=== PATIENT | male | born 1960 | race Caucasian/White ===

== ENCOUNTER 2016-06-22 14:56 | Inpatient (IN) ==
[2016-06-22] MEDS ORDERED: HYDROmorphone 2 MG/1 ML VIAL IV STA (15:56)
[2016-06-22] MEDS ORDERED: NITROGLYCERIN 2% OINT 1 INCH/GM PACK TOP STA (15:56)
[2016-06-22] MEDS ORDERED: ASPIRIN 325 MG TABLET PO STA (15:56)
[2016-06-22] MEDS ORDERED: ONDANSETRON 4 MG/2 ML VIAL IV STA (15:56)
[2016-06-22] MEDS ORDERED: KETOROLAC 30 MG/1 ML VIAL IV STA (15:56)
[2016-06-22] MEDS ORDERED: ALUM/MAG/SIMETH/LIDO VISC 1:1 30 ML BOTTLE PO STA (15:56)
--- NOTE | 2016-06-22 16:03 | EKG Report ---
Stationary ECG Study [facility] ER Test Date: 06/22/2016 3:04:33 PM Pat Name: MATTEO LUCIO Department: Room: Gender: M Torque Tester: Brenda Mckay : 1960 Requested by: Tyson Vallejo Order Number: [id number] Reading MD: GALDINO SOLITARIO Intervals [place] Rate: 93 P: 63 MT: 169 QRS: 8 QRSD: 97 T: 85 QT: 349 QTc: 399 Interpretive Statements SINUS RHYTHM at 93 BPM ANTEROSEPTAL INFARCT, PROBABLY RECENT Electronically Signed On 06-25-16 16:58:18 CDT by GALDINO SOLITARIO [email or web address]
[2016-06-22] MEDS ORDERED: ONDANSETRON 4 MG/2 ML VIAL ONE (16:07)
[2016-06-22] MEDS ORDERED: KETOROLAC 30 MG/1 ML VIAL ONE (16:07)
[2016-06-22] MEDS ORDERED: ALUM/MAG/SIMETH/LIDO VISC 1:1 30 ML BOTTLE PO ONE (16:07)
[2016-06-22] MEDS ORDERED: NITROGLYCERIN 2% OINT 1 INCH/GM PACK TOP ONE (16:07)
[2016-06-22] MEDS ORDERED: ASPIRIN 325 MG TABLET ONE (16:07)
[2016-06-22] MEDS ORDERED: HYDROmorphone 2 MG/1 ML VIAL ONE (16:07)
--- NOTE | 2016-06-22 16:15 | XRay Report ---
Portable chest Date: 06/22/2016 Clinical history: Chest pain Comparison: None Technique: Portable AP sitting chest Findings: The heart is minimally enlarged. Minimal diffuse parenchymal findings in the lower lung zones. Unremarkable mediastinum with degenerative changes. Impression: Mild cardiomegaly. Minimal atelectasis/edema/infiltration at lung bases. PROCEDURE INTERPRETED AT [facility] DEPARTMENT OF RADIOLOGY Final Report Signed by: Dr. Theresa Santamaria
[2016-06-22 16:24] LABS: Basophils # 0.1 10*3/uL (0.0-0.2); Basophils % 0.7 % (0.0-0.8); Eosinophils # 0.1 10*3/uL (0.0-0.87); Eosinophils % 1.4 % (0.00-10.9); Hematocrit 43.2 VOL% (42.0-52.0); Hemoglobin 15.2 GM/DL (14.0-18.0); Immature Granulocytes % 0.6 %; Immature Granulocytes Absolute 0.05 #; Lymphocytes % 23.3 % (21.2-54.2); Mean Corpuscular HGB Conc 35.2 GM/DL (32-36); Mean Corpuscular Hemoglobin 31 PG (27-34); Mean Corpuscular Volume 88.9 FL (87-102); Mean Platelet Volume 10.8 FL (9.6-12.0); Monocytes # 0.5 10*3/uL (0.11-0.8); Monocytes % 6.2 % (1.7-12.7); Neutrophils # 5.9 10*3/uL (1.4-7.4); Neutrophils % 67.8 % (38.7-73.9); Platelet Count 278 T/CUMM (130-400); Red Blood Count 4.86 MC/CUMM (3.8-5.5); Red Cell Distribution Width 11.8 % (9.3-17.3); White Blood Count 8.7 T/CUMM (4-12)
[2016-06-22 16:32] LABS: D-Dimer <= 0.5 MG/L FEU; PT Patient Result 10.7 SECS
[2016-06-22 16:38] LABS: Apearance,Urine CLEAR (Clear); Bilirubin,Urine Negative (Negative); Blood, Urine Negative (Negative); Glucose,Urine (UA) >=500 mg/dL (Negative); Ketones,Urine 5 mg/dL (Negative); Mucus,Urine Occasional /LPF (Occasional); Nitrite,Urine Negative (Negative); Protein,Urine Negative; RBC,Urine 1 /HPF (0-4); Urine Color Yellow (Yellow); Urine Specific Gravity 1.021 (1.001-1.035); Urine Urobilinogen < 2.0 EU/DL (0.2-1.0); WBC,Urine <1 /HPF (0-6)
[2016-06-22 16:38] LABS: Albumin 3.8 G/DL (3.4-5.0); Bilirubin,Total 0.4 MG/DL (0.2-1.0); Calcium 8.8 MG/DL (8.5-10.1); Magnesium 1.9 MG/DL (1.8-2.4); Osmolality,Calculated 281.1 MOS/KG (273-304); Potassium 4.2 MMOL/L (3.5-5.1); Total Protein 6.6 G/DL (6.4-8.3)
--- NOTE | 2016-06-22 16:40 | Emergency Department Note ---
Nani Strong Hilary, am scribing for, and in the presence of, Tyson Sandhu MD 15:52. Phoebe Strong Charles R, MD, personally performed the services described in this documentation, ascribed by Deonna Cardoza in my presence, and it is both accurate and complete 640 . Arrival - Arrival Chief Complaint: Chest Pain Stated Complaint: chest pain ED Nursing Triage Note: Pt c/o Chest/epigastric pain that comes and goes since last , with SOB and radiates into his right arm. Mode of Arrival: Wheelchair Limitations: No Limitations Source: Patient, RN Notes Reviewed Time Seen by Provider: 06/22/16 15:09 - History of Present Illness HPI Narrative: Pt is a 56 y/o male presenting to the ED with c/o chest pain that radiates up his neck and to his right arm which has been off and on for 6 days. Pt confirms diaphoresis and intermittent episodes of chest pain but denies nausea and dizziness. Pt states the pain is now resolved. No other complaints or problems stated in the ED. Onset (ago): day(s) Consistency: now resolved Quality: burning Allergies/Adverse Reactions: Allergies Allergy/AdvReac Type Severity Reaction Status Date / Time codeine Allergy ITCHING Verified 01/11/15 09:24 Home Medications: Home Medications Medication Instructions Recorded Confirmed Type No Known Home Medications [No 06/22/16 06/22/16 History Known Home Medications] Review of System - Review of System 12 point system: reviewed and no additional remarkable complaints except as stated - Review of System Constitutional: Present: diaphoresis. Absent: fever Eyes: Absent: other (Dizziness) Cardiovascular: Present: chest pain, dyspnea on exertion. Absent: syncope Gastrointestinal: Absent: abdominal pain, nausea Medical,Surgical,& Family Hx - Medical History Endocrine: History of: Diabetes Mellitus (NIDDM) Genitourinary: History of: Prostate Problems (CA) - Surgical History Reproductive Surgeries: Surgical HX of;: Prostate Surgery Orthopedic Surgeries: Surgical HX of;: Orthopedic Surgery (lane knee surg) - Social History Smoking Status: Never smoker Exam Vital Signs: Vital Signs Temperature 97.6 F 06/22/16 15:13 Pulse Rate 90 06/22/16 15:13 Respiratory Rate 18 06/22/16 15:13 Blood Pressure 138/77 06/22/16 15:13 O2 Sat by Pulse Oximetry 98 06/22/16 15:03 - General General appearance: alert, in no apparent distress - Head Head exam: Present: atraumatic, normocephalic - Eye Eye exam: Present: normal appearance, PERRL, EOMI - ENT ENT exam: Present: mucous membranes moist, TM's normal bilaterally. Absent: mucous membranes dry - Neck Neck exam: Present: full ROM, trachea midline. Absent: tenderness - Chest Chest inspection: Present: symmetric chest wall rise. Absent: tenderness - Respiratory Respiratory exam: Present: normal lung sounds bilaterally. Absent: respiratory distress - Cardiovascular Cardiovascular exam: Present: regular rate, normal rhythm, normal heart sounds. Absent: murmur, rubs, gallop - Abdominal Exam Abdominal exam: Present: soft. Absent: distention, tenderness - Extremities Exam Extremities exam: Present: full ROM. Absent: tenderness - Back Exam Back exam: Present: full ROM. Absent: tenderness - Neurological Exam Neurological exam: Present: alert, oriented X3, CN II-XII intact. Absent: motor sensory deficit - Psychiatric Psychiatric exam: Present: normal affect, normal mood - Skin Skin exam: Present: warm, dry, intact, normal color. Absent: rash Course - Reevaluation(s) Reevaluation #1: Patient has had no chest pain since he has been emergency room pain started 2 weeks ago with his increased slightly last couple days. Patient has a elevated troponin and clinically unstable angina, EKG shows possible slight ST elevation in 1-lead but no cervical changes. This information really laid Dr. Mansfield he suggested admit patient medically worked him up plan on doing a heart cath Time: 16:48 - Consultations Consultation #1: Dr. Mansfield will admit patient Time: 16:45 Results - Labs CBC & BMP: 06/22/16 15:25 06/22/16 15:25 - Diagnostic Findings Procedure: Chest x-ray: report reviewed by me (Mild cardiomegaly. Minimal atelectasis/edema/infiltration at lung bases. ) Critical Care Time Critical Care Time: Yes Total Critical Care Time: 60 Disposition Clinical Impression: Chest pain, Unstable angina pectoris, Elevated troponin Case discussed with: patient Disposition: Still a Patient Condition: Stable Time of Disposition: 16:49
[2016-06-22] MEDS ORDERED: ENOXAPARIN 100 MG/ML SYRINGE SUBCUT STA (16:58)
[2016-06-22] MEDS ORDERED: ENOXAPARIN 120 MG/0.8 ML SYRINGE SUBCUT ONE (17:19)
--- NOTE | 2016-06-22 17:44 | Cardiology History & Physical ---
<Bronwyn Vale E - Last Filed: 06/22/16 17:35> Assessment and Plan - Time spent with patient Time spent with patient: Greater than 30 minutes (1) NSTEMI (non-ST elevated myocardial infarction) Status: Acute Assessment and plan: SEE PLAN OF CARE LISTED BELOW Current Visit: Yes (2) Diabetes Status: Chronic Assessment and plan: SEE PLAN OF CARE LISTED BELOW Current Visit: Yes (3) Sleep disorder Status: Chronic Assessment and plan: SEE PLAN OF CARE LISTED BELOW Current Visit: Yes (4) Obesity Status: Chronic Assessment and plan: SEE PLAN OF CARE LISTED BELOW Current Visit: Yes History of Present Illness Chief complaint: Chest pain History of present illness: Patient is being seen in the emergency department at [facility] Mr. Paulson is a 56 year old male without a prior cardiac history. Risk factors include: Suspected hypertension, unknown lipid status, diabetes, obesity, sedentary lifestyle. Patient presented to the emergency department at [facility] after experiencing intermittent chest pain since . Initially, the discomfort began and lasted approximately 15 minutes. He has had this episode occur several times with the worst being on Tuesday when he began to feel the chest discomfort in the center of his chest which radiated up to bilateral jaws. He was mildly short of breath and felt his heart racing. He became diaphoretic and this worried him. He can identify no aggravating factors nor any alleviating factors. In retrospect, patient reports he has noticed some chest discomfort in the past with significant exertion however, the chest discomfort has recently began to occur while at rest. He is unable to rate the discomfort on a scale of 1-10. He is currently chest pain-free. Cardiac biomarkers have been drawn and the first troponin is 1.34. EKG does reveals a possible recent shantal septal infarct. Patient received aspirin 325 mg, Lovenox 110 mg subcu, nitroglycerin paste. We will add low-dose beta blockade and lipid-lowering agent tonight. Patient is agreeable for admission. He will be transferred to our telemetry unit where he will be closely monitored overnight. Dr. Dean we will see this patient and advise plan of care. I will keep him n.p.o. after midnight tonight for possible cardiac catheterization tomorrow. ASSESSMENT/PLAN: 1. NSTEMI -patient is chest pain-free. See plan of care listed above. Echocardiogram has been ordered. 2. DIABETES -sliding scale insulin. Usually takes metformin but has been out of his diabetes medication for 1 month and he has been trying to manage with his diet and exercise 3. SUSPECTED HYPERTENSION -adding low-dose beta blockade 4. UNKNOWN LIPID STATUS -fasting lipid profile in the morning 5. ELEVATED LIPASE -adding amylase and LFTs 6. OBESITY -dietary counseling prior to discharge 7. SLEEP DISORDER -scheduled for outpatient sleep study Home Medications Medication Instructions Recorded Confirmed Type No Known Home Medications [No 06/22/16 06/22/16 History Known Home Medications] Allergies Allergy/AdvReac Type Severity Reaction Status Date / Time codeine Allergy ITCHING Verified 01/11/15 09:24 Review of systems: REVIEW OF SYSTEMS: - Constitutional Constitutional: Present: Fatigue. Absent: syncope, anorexia, night sweats - EENT Eyes: Absent: blurry vision, loss of vision, diplopia Ears: Absent: decreased hearing, ear pain, ear discharge - Cardiovascular Cardiovascular: Present: chest pain with exertion and at rest. Dyspnea on exertion. Denies edema or palpitations. Absent: chest pain with deep breath, claudication, - Respiratory Respiratory: Present: WALL, denies cough. Absent: wheezing, hemoptysis, change in phlegm color - Gastrointestinal Gastrointestinal: Denies constipation. Absent: abdominal pain, hematemesis, hematochezia, melena, change in bowel habits, nausea - Genitourinary Genitourinary: Absent: difficulty urinating, dysuria, urinary hesitancy, flank pain - Musculoskeletal Musculoskeletal: Present: back pain Absent: joint swelling, muscle cramps, muscle weakness - Neurological Neurological: Present: normal gait without frequent falls. Absent: dizziness, hemiparesis - Psychiatric Psychiatric: Absent: anxiety, depression, difficulty concentrating - Endocrine Endocrine: Present: fatigue. Absent: cold intolerance, heat intolerance, polyuria, polyphagia, polydipsia - Hematologic/Lymphatic Hematologic/Lymphatic: Present: easy bruising. Absent: easy bleeding -Integumentary Integumentary: Absent: lesions, rashes, skin breakdown Medical,Surgical,& Family Hx - Medical History Cardio: No history of: CHF, CAD, Hypertension, [place] Endocrine: History of: Diabetes Mellitus (NIDDM) Genitourinary: History of: Prostate Problems (CA) - Surgical History Reproductive Surgeries: Surgical HX of;: Prostate Surgery Orthopedic Surgeries: Surgical HX of;: Orthopedic Surgery (lane knee surg) - Social History Smoking Status: Never smoker Have you smoked in the last 12 months: No Type of Drug Use: None Marital Status: Lives With:: Spouse Functional capacity: independent ambulation Cardiology Physical Exam - Constitutional Vitals: Vital Signs Temp Pulse Resp BP Pulse Ox 97.6 F 90 18 138/77 98 06/22/16 15:13 06/22/16 15:13 06/22/16 15:13 06/22/16 15:13 06/22/16 15:03 Intake and Output 06/22/16 06/22/16 06/22/16 07:59 15:59 23:59 Other: Weight 109.316 kg Patient Weight 06/22/16 23:59 Weight 109.316 kg Exam: General: [Appears well with no apparent distress.] [Pleasant and cooperative. ] [Appears comfortable.] HEENT: [PERRL, normocephalic, atraumatic. Mucous membranes moist. No jaundice noted. Conjunctiva moist and clear, sclerae anicteric] Neck: No obvious jugular vein distention. No thyromegaly or lymphadenopathy noted. No carotid bruit appreciated Cardiac: [Regular rate and rhythm.] [No obvious murmur rub or gallop.] Lungs: [Clear to auscultation without accessory muscle use to assist the respiratory pattern.] Using oxygen intermittently Abdomen: Soft, bowel sounds normoactive. Nontender and nondistended. No abdominal bruit or thrill noted. No masses noted. Musculoskeletal: No fluid collection. Decreased range of motion is noted. Extremities: No clubbing, cyanosis noted. [ No edema noted.] Upper extremity pulses 2+. Lower extremity pulses 2+. Capillary refill less than 3 seconds. Skin: No unusual lesions or rashes. No skin breakdown appreciated. Neuro: Awake, alert and oriented 3. Moves all extremities well without hemiparesis or paralysis. No essential tremor is appreciated. Result/EKG - Labs CBC & BMP: 06/22/16 15:25 06/22/16 15:25 Lab Results: I have reviewed the past 24 hour labs Labs: Laboratory Results - last 24 hr 06/22/16 06/22/16 06/22/16 15:22 15:25 15:25 WBC RBC Hgb Hct MCV MCH MCHC RDW Plt Count MPV Neut % (Auto) Lymph % (Auto) [place] % (Auto) Eos % (Auto) Baso % (Auto) Neut # (Auto) Lymph # (Auto) [place] # (Auto) Eos # (Auto) Baso # (Auto) Immature Gran % Nucleated RBC % Immature Gran # Nucleated RBCs # INR 1.0 PT Patient/Control Mix 10.7 D-Dimer, Quantitative <= 0.5 Sodium 135 L Potassium 4.2 Chloride 102 Carbon Dioxide 25 Anion Gap 12.2 BUN 20 H Creatinine 1.40 H GFR Calculation 76 BUN/Creatinine Ratio 14.00 Glucose 263 H Calculated Osmolality 281.1 Calcium 8.8 Magnesium 1.9 Total Bilirubin 0.40 AST 16 ALT 25 Alkaline Phosphatase 80 Troponin I B-Natriuretic Peptide Total Protein 6.6 Albumin 3.8 Globulin 2.8 Albumin/Globulin Ratio 1.3 Lipase 571.0 H Urine Color Yellow Urine Appearance Clear Urine pH 5.0 Ur Specific [place] 1.021 Urine Protein Negative Urine Glucose (UA) >=500 Urine Ketones 5 Urine Blood Negative Urine Nitrate Negative Urine Bilirubin Negative Urine Urobilinogen < 2.0 H Urine Leukocytes Negative Urine RBC 1 Urine WBC <1 Urine Mucus Occasional Ur Culture Indicated? Not indicated 06/22/16 06/22/16 06/22/16 15:25 15:25 15:25 WBC 8.7 RBC 4.86 Hgb 15.2 Hct 43.2 MCV 88.9 MCH 31 MCHC 35.2 RDW 11.8 Plt Count 278 MPV 10.8 Neut % (Auto) 67.8 Lymph % (Auto) 23.3 [place] % (Auto) 6.2 Eos % (Auto) 1.4 Baso % (Auto) 0.7 Neut # (Auto) 5.9 Lymph # (Auto) 2.0 [place] # (Auto) 0.5 Eos # (Auto) 0.1 Baso # (Auto) 0.1 Immature Gran % 0.6 Nucleated RBC % 0.0 Immature Gran # 0.05 Nucleated RBCs # 0.00 INR PT Patient/Control Mix D-Dimer, Quantitative Sodium Potassium Chloride Carbon Dioxide Anion Gap BUN Creatinine GFR Calculation BUN/Creatinine Ratio Glucose Calculated Osmolality Calcium Magnesium Total Bilirubin AST ALT Alkaline Phosphatase Troponin I 1.340 H B-Natriuretic Peptide 83 Total Protein Albumin Globulin Albumin/Globulin Ratio Lipase Urine Color Urine Appearance Urine pH Ur Specific [place] Urine Protein Urine Glucose (UA) Urine Ketones Urine Blood Urine Nitrate Urine Bilirubin Urine Urobilinogen Urine Leukocytes Urine RBC Urine WBC Urine Mucus Ur Culture Indicated? - Diagnostic Findings Procedure: Chest x-ray: report reviewed by me - EKG EKG results: interpreted by me EKG shows: sinus rhythm (Anteroseptal infarct) <Yordan Dean - Last Filed: 06/22/16 18:27> History of Present Illness History of present illness: Mr. Paulson is a 56 year old male Cardiology Physical Exam - Constitutional Vitals: Vital Signs Temp Pulse Resp BP Pulse Ox 97.6 F 90 18 138/77 98 06/22/16 15:13 06/22/16 15:13 06/22/16 15:13 06/22/16 15:13 06/22/16 15:03 Result/EKG - Labs CBC & BMP: 06/22/16 15:25 06/22/16 15:25
[2016-06-22] MEDS ORDERED: METOPROLOL TARTRATE 25 MG TABLET PO STA (17:51)
[2016-06-22] MEDS ORDERED: MAGNESIUM SULF RIDER 2 GM in PREMIX 1 EACH IV PRN ×3 (17:53→19:49)
[2016-06-22] MEDS ORDERED: POTASSIUM CHLORIDE RIDER 10 MEQ in PREMIX 1 EACH IV PRN ×2 (17:53→18:33)
[2016-06-22] MEDS ORDERED: DEXTROSE 50% 25 GM/50 ML VIAL IV PRN ×2 (17:56→19:49)
[2016-06-22] MEDS ORDERED: GLUCAGON 1 MG VIAL IM PRN ×2 (17:56→19:49)
[2016-06-22] MEDS ORDERED: diphenhydrAMINE CAP 25 MG CAPSULE PO ONE (18:33)
[2016-06-22] MEDS ORDERED: DIAZEPAM 5 MG TABLET PO ONE (18:33)
[2016-06-22] MEDS ORDERED: POTASSIUM CHLORIDE 20 MEQ TABLET PO PRN (19:49)
[2016-06-22] MEDS ORDERED: SODIUM CHLORIDE 0.9% 1,000 ML IV SCH (19:49)
[2016-06-22] MEDS ORDERED: MAGNESIUM SULF RIDER 4 GM in PREMIX 1 EACH IV PRN (19:49)
[2016-06-22] MEDS ORDERED: HYDROmorphone 2 MG/1 ML VIAL IV PRN (19:49)
[2016-06-22] MEDS ORDERED: ONDANSETRON 4 MG/2 ML VIAL IV PRN (19:49)
[2016-06-22] MEDS ORDERED: NITROGLYCERIN 2% OINT 1 INCH/GM PACK TOP SCH (19:49)
[2016-06-22] MEDS ORDERED: ATORVASTATIN 40 MG TABLET PO STA (19:58)
[2016-06-22] MEDS ORDERED: METOPROLOL TARTRATE 25 MG TABLET PO SCH (21:00)
[2016-06-22] MEDS ORDERED: INSULIN REGULAR 100 UNIT/ML SUBCUT SCH (21:00)
[2016-06-22] MEDS: SODIUM CHLORIDE 0.45% 1,000 ML IV SCH (21:00)
[2016-06-22] MEDS: INSULIN REGULAR 100 UNIT/ML SUBCUT SCH (21:25)
--- NOTE | 2016-06-22 22:21 | EKG Report ---
Stationary ECG Study [facility] Test Date: 06/22/2016 10:18:59 PM Pat Name: MATTEO LUCIO Department: Room: 266 Gender: M Intermediate Frame Tender: Osman : 1960 Requested by: Tyson Vallejo Order Number: [id number] Reading MD: BLAKE CHA Intervals [place] Rate: 85 P: 29 TN: 189 QRS: 2 QRSD: 106 T: 80 QT: 340 QTc: 383 Interpretive Statements SINUS RHYTHM ANTEROSEPTAL INFARCT, AGE UNDETERMINED Electronically Signed On 06-28-16 10:42:14 CDT by BLAKE CHA [email or web address]
[2016-06-22] MEDS ORDERED: ASPIRIN 325 MG TABLET PO ONE (22:47)
[2016-06-22] MEDS ORDERED: ACETAMINOPHEN 325 MG TABLET PO ONE (22:48)
[2016-06-22 22:56] LABS: Calcium 7.8 MG/DL (8.5-10.1); Magnesium 1.8 MG/DL (1.8-2.4); Osmolality,Calculated 288.1 MOS/KG (273-304); Potassium 4.1 MMOL/L (3.5-5.1)
[2016-06-23 04:46] LABS: Basophils # 0.1 10*3/uL (0.0-0.2); Basophils % 0.8 % (0.0-0.8); Eosinophils # 0.1 10*3/uL (0.0-0.87); Eosinophils % 1.7 % (0.00-10.9); Hematocrit 39.7 VOL% (42.0-52.0); Hemoglobin 14.2 GM/DL (14.0-18.0); Immature Granulocytes % 0.5 %; Immature Granulocytes Absolute 0.03 #; Lymphocytes # 2.8 10*3/uL (1.4-4.0); Lymphocytes % 41.6 % (21.2-54.2); Mean Corpuscular HGB Conc 35.8 GM/DL (32-36); Mean Corpuscular Hemoglobin 31 PG (27-34); Mean Corpuscular Volume 86.9 FL (87-102); Mean Platelet Volume 10.7 FL (9.6-12.0); Monocytes # 0.5 10*3/uL (0.11-0.8); Monocytes % 7.8 % (1.7-12.7); Neutrophils # 3.2 10*3/uL (1.4-7.4); Neutrophils % 47.6 % (38.7-73.9); Platelet Count 251 T/CUMM (130-400); Red Blood Count 4.57 MC/CUMM (3.8-5.5); Red Cell Distribution Width 11.8 % (9.3-17.3); White Blood Count 6.7 T/CUMM (4-12)
[2016-06-23 05:18] LABS: Albumin 3.4 G/DL (3.4-5.0); Bilirubin,Total 1.5 MG/DL (0.2-1.0); Calcium 8.5 MG/DL (8.5-10.1); Magnesium 2.1 MG/DL (1.8-2.4); Osmolality,Calculated 286.7 MOS/KG (273-304); Risk Ratio 6.14; VLDL CHOLESTEROL 52.8 MG/DL
[2016-06-23 05:24] LABS: Calcium 8.6 MG/DL (8.5-10.1); Magnesium 2.2 MG/DL (1.8-2.4); Osmolality,Calculated 285.7 MOS/KG (273-304)
[2016-06-23] MEDS: PANTOPRAZOLE 40 MG TABLET PO SCH ×2 (07:59→10:49)
[2016-06-23] MEDS: METOPROLOL TARTRATE 25 MG TABLET PO SCH ×4 (07:59→17:55)
[2016-06-23] MEDS: NITROGLYCERIN 2% OINT 1 INCH/GM PACK TOP SCH ×4 (07:59→17:54)
[2016-06-23] MEDS: ASPIRIN EC 325 MG TABLET PO SCH (07:59)
[2016-06-23] MEDS: ENOXAPARIN 120 MG/0.8 ML SYRINGE SUBCUT SCH ×2 (08:00→17:55)
[2016-06-23] MEDS ORDERED: diphenhydrAMINE CAP 50 MG CAPSULE PO ONE (08:00)
[2016-06-23] MEDS ORDERED: DIAZEPAM 5 MG TABLET PO ONE (08:00)
[2016-06-23] MEDS: INSULIN REGULAR 100 UNIT/ML SUBCUT SCH ×4 (08:00→21:40)
[2016-06-23] MEDS ORDERED: LIDOCAINE 1%/EPI INJ 20 ML VIAL ONE (08:35)
[2016-06-23] MEDS ORDERED: LIDOCAINE 1% 20 ML VIAL ONE (08:37)
[2016-06-23] MEDS ORDERED: VERAPAMIL 5 MG/2 ML VIAL ONE (08:49)
[2016-06-23] MEDS ORDERED: NITROGLYCERIN DRIP 50 MG/250 ML BOTTLE IV ONE (08:49)
--- NOTE | 2016-06-23 08:53 | XRay Report ---
XR chest 1V portable Indication: Shortness of breath Comparison: 22 June 2016 Findings: The heart and mediastinum are normal in size and configuration. The pulmonary vascularity is normal in caliber. No lung infiltrates, effusions, pneumothorax or other abnormality is demonstrated. Impression: No acute cardiopulmonary disease. PROCEDURE INTERPRETED AT [facility] DEPARTMENT OF RADIOLOGY Final Report Signed by: Dr. Forrest Baum
[2016-06-23] MEDS ORDERED: MIDAZOLAM 2 MG/2 ML VIAL ONE (08:59)
[2016-06-23] MEDS ORDERED: HYDROmorphone 2 MG/1 ML VIAL ONE (08:59)
[2016-06-23] MEDS ORDERED: NITROGLYCERIN SL 0.4 MG TABLET SL PRN (09:38)
--- NOTE | 2016-06-23 09:53 | Cardiac Catheterization ---
Date of Procedure:: 06/23/16 Post-op diagnosis: same Procedure: Procedures performed: 1. Left heart catheterization 2. Coronary angiography 3. Left ventriculography 4. 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 Description of procedure: After obtaining informed consent the patient transferred to the catheterization lab, and the right wrist was prepped and draped in the usual sterile fashion. Next a short 6 [place] sheath was placed in the right radial artery using the Seldinger technique after the patient received IV sedation, and local anesthetic. I then injected a vasodilator cocktail into the sheath. We gave her 0.5 mg per kilogram of intravenous Lovenox prior to the procedure. Next a 5 [place] TIG catheter was advancing his left coronary artery after which angiogram was performed in multiple views. This was then pulled back and manipulated the right coronary artery where angiographic were taken multiple views. The catheter was removed over a J- wire. Hemostasis was obtained with a TR band, using "patent hemostasis" technique. The patient was transferred from the catheterization lab in good condition. Coronary angiography: Left main coronary arteries normally developed and free of disease. Left descending artery has moderately calcified diffuse tubular 90 to 95% disease involving the ostium extending to the first septal platform power technician. The LAD is smaller than average caliber but does wrap around the apex. It gives off a thin, long first diagonal branch which comes off fairly high, and a tiny second diagonal branch which comes off just after a relatively discrete 95 % mid LAD stenosis. There is CLARITZA 2 flow in the LAD. The circumflex is the dominant vessel and gives off a large ramus branch with a 90% ostial stenosis. There are 2 very thin obtuse marginal branches. There are also 3 posterolateral branches and left-sided PDA. The last posterolateral is thinner than average caliber and has a 95% proximal stenosis. The right coronary artery is long and thin a nondominant. It may provide a modest supply to the septum. There is diffuse 90-95% disease proximally also involving a acute marginal which is long and has a high takeoff. Left ventricular: Left ventricle is normal in size with mildly reduced LV systolic function with severe apical hypokinesis. He has to ejection fraction is 45%. Ascending aortogram: The ascending aorta appears to be somewhat dilated but is normally developed does not seem to be clearly aneurysmal. Impression: 1. Mildly reduced overall LV systolic function with severe apical hypokinesis; the estimated ejection fraction is 45% 2. Three-vessel coronary artery disease and including but not limited to: A. Long tubular, moderately calcified, 90-95% ostial/proximal LAD to the first septal platform power technician, as well as discrete 95% stenosis in the mid LAD just before the takeoff of the small second diagonal branch; CLARITZA 2 flow is noted in the LAD B. 90% ostial ramus intermedius stenosis, as well as 95% stenosis in the proximal portion of a thin PL 3 branch C. Diffuse proximal 90-95% RCA disease and a long thin nondominant right coronary artery (may supply modest flow to the septum) 3. Ascending aorta is somewhat dilated, but not clearly aneurysmal Recommendation discussion: Given Mr. Paulson is diabetic and has mildly reduced LV function as well as anatomy not amenable to percutaneous intervention, I will consult CV surgery as I believe he'll benefit from bypass surgery. Although he is CLARITZA 2 flow is distal LAD, he is not having active angina for over 24 hours. I will continue baby aspirin high-intensity statin as well as low-dose beta karen therapy. Anesthesia: minimal conscious sedation Surgeon / Physician: Yordan Dean Assistant Corporate Controller: other Estimated blood loss: minimal Specimens: none sent Condition: stable Disposition: floor - Medications / Follow-up
--- NOTE | 2016-06-23 11:38 | Physician Query Form ---
CLICK EDIT DOCUMENT TO SELECT QUERY ANSWER --> OK --> SIGN Vicky Gage RN Clinical Explosive Ordnance Disposal Technician W) [phone] (f) [phone] [email or web address] PROVIDERS: Make your selection(s) from the choices in EACH section by typing an "x" and enter comments in the comment section. Please use your independent medical judgment in providing your response. This request does not imply that any particular answer is desired or expected. CLINICAL INDICATORS: (Providers should not edit this section) Based on serum creatinine level from 1.4 to 0.9. GFR from 76 to 130. Treated with NS infusion. Monitored with serial lab checks. Clarify which of the following most accurately represents the patient's renal status: ( ) Acute kidney injury (non-traumatic) ( ) Acute renal failure ( ) Acute renal failure with underlying Chronic Kidney Disease (CKD) - please provide stage below ( ) Acute renal failure with pathological renal lesion ( ) Acute renal failure with necrosis ( ) tubular ( ) medullary ( ) cortical ( ) CKD - please provide stage below ( ) End Stage Renal Disease ( ) Acute interstitial nephritis ( ) Hepatorenal syndrome ( ) Other, please specify: (x ) Clinically unable to determine Chronic Kidney Disease Stages Source: National Kidney Disease Foundation ( ) Stage I (eGFR > or = 90) ( ) Stage II (eGFR 60 - 89) ( ) Stage III (eGFR 30 - 59) ( ) Stage IV (eGFR 15 - 29) ( ) Stage V (eGFR < 15 or dialysis) COMMENTS: Use of terms such as suspected, likely, or probable (associated with a specific diagnosis that is being evaluated, monitored, or treated as if it exists) are acceptable and can be restated in the discharge summary if not ruled out. MTDD
[2016-06-23] MEDS: SODIUM CHLORIDE 0.45% 1,000 ML IV SCH ×2 (11:53→23:27)
[2016-06-23] MEDS ORDERED: GLUCAGON 1 MG VIAL IM PRN (13:18)
[2016-06-23] MEDS ORDERED: DEXTROSE 50% 25 GM/50 ML VIAL IV PRN (13:18)
--- NOTE | 2016-06-23 13:18 | Cardiothoracic Progress Note ---
Cardiothoracic Subjective Interval history: Mr. Paulson is a 56-year-old man who presented to the emergency room last night with symptoms of chest discomfort which have been increasing in severity over the past several days. He is admitted for evaluation which included cardiac catheterization this morning which demonstrated severe three-vessel coronary disease. On review of his cardiac cath films it appears that his vessels tend to be smaller than normal but he has at least 2 good distal targets including the anterior descending and the ramus intermedius. He has critical disease in both of these vessels and he clearly would benefit from coronary bypass grafting. I think he needs to remain in the hospital and I have scheduled him for bypass surgery on Tuesday. Exam (Progress Note) - Constitutional Vitals: Period Temp Pulse Resp BP Sys/Nunez Pulse Ox Last 24 Hr 97 F-98 F 68-83 18-20 125-141/71-93 94-99 Result/EKG - Labs CBC & BMP: 06/23/16 03:56 06/23/16 03:56 Labs: Laboratory Results - last 24 hr 06/22/16 06/22/16 06/22/16 19:07 20:16 22:16 WBC RBC Hgb Hct MCV MCH MCHC RDW Plt Count MPV Neut % (Auto) Lymph % (Auto) [place] % (Auto) Eos % (Auto) Baso % (Auto) Neut # (Auto) Lymph # (Auto) [place] # (Auto) Eos # (Auto) Baso # (Auto) Immature Gran % Nucleated RBC % Immature Gran # Nucleated RBCs # Sodium 135 L Potassium 4.1 Chloride 101 Carbon Dioxide 25 Anion Gap 13.1 BUN 23 H Creatinine 1.20 GFR Calculation 92 BUN/Creatinine Ratio 19.00 Glucose 365 H POC Glucose 226 H Calculated Osmolality 288.1 Calcium 7.8 L Magnesium 1.8 Total Bilirubin AST ALT Alkaline Phosphatase Total Creatine Kinase CK-MB (CK-2) Troponin I 1.380 H B-Natriuretic Peptide Total Protein Albumin Globulin Albumin/Globulin Ratio Triglycerides Cholesterol LDL Cholesterol VLDL Cholesterol HDL Cholesterol Heart Disease Risk Ratio Amylase 41 06/22/16 06/23/16 06/23/16 22:21 03:56 03:56 WBC 6.7 RBC 4.57 Hgb 14.2 Hct 39.7 L MCV 86.9 L MCH 31 MCHC 35.8 RDW 11.8 Plt Count 251 MPV 10.7 Neut % (Auto) 47.6 Lymph % (Auto) 41.6 [place] % (Auto) 7.8 Eos % (Auto) 1.7 Baso % (Auto) 0.8 Neut # (Auto) 3.2 Lymph # (Auto) 2.8 [place] # (Auto) 0.5 Eos # (Auto) 0.1 Baso # (Auto) 0.1 Immature Gran % 0.5 Nucleated RBC % 0.0 Immature Gran # 0.03 Nucleated RBCs # 0.00 Sodium 138 Potassium 4.0 Chloride 102 Carbon Dioxide 24 Anion Gap 16.0 H BUN 20 H Creatinine 0.90 GFR Calculation 130 BUN/Creatinine Ratio 22.00 H Glucose 260 H POC Glucose Calculated Osmolality 286.7 Calcium 8.5 Magnesium 2.1 Total Bilirubin 1.50 H AST 11 ALT 22 Alkaline Phosphatase 73 Total Creatine Kinase 72 CK-MB (CK-2) 1.3 Troponin I 1.320 H B-Natriuretic Peptide Total Protein 6.0 L Albumin 3.4 Globulin 2.6 Albumin/Globulin Ratio 1.3 Triglycerides 264 H Cholesterol 178 LDL Cholesterol 113.0 VLDL Cholesterol 52.8 HDL Cholesterol 29 L Heart Disease Risk Ratio 6.14 Amylase 06/23/16 06/23/16 06/23/16 03:56 03:56 07:19 WBC RBC Hgb Hct MCV MCH MCHC RDW Plt Count MPV Neut % (Auto) Lymph % (Auto) [place] % (Auto) Eos % (Auto) Baso % (Auto) Neut # (Auto) Lymph # (Auto) [place] # (Auto) Eos # (Auto) Baso # (Auto) Immature Gran % Nucleated RBC % Immature Gran # Nucleated RBCs # Sodium 138 Potassium 4.0 Chloride 103 Carbon Dioxide 24 Anion Gap 15.0 BUN 19 H Creatinine 0.90 GFR Calculation 130 BUN/Creatinine Ratio 21.00 H Glucose 257 H POC Glucose 274 H Calculated Osmolality 285.7 Calcium 8.6 Magnesium 2.2 Total Bilirubin AST ALT Alkaline Phosphatase Total Creatine Kinase CK-MB (CK-2) Troponin I B-Natriuretic Peptide 120 H Total Protein Albumin Globulin Albumin/Globulin Ratio Triglycerides Cholesterol LDL Cholesterol VLDL Cholesterol HDL Cholesterol Heart Disease Risk Ratio Amylase 06/23/16 11:37 WBC RBC Hgb Hct MCV MCH MCHC RDW Plt Count MPV Neut % (Auto) Lymph % (Auto) [place] % (Auto) Eos % (Auto) Baso % (Auto) Neut # (Auto) Lymph # (Auto) [place] # (Auto) Eos # (Auto) Baso # (Auto) Immature Gran % Nucleated RBC % Immature Gran # Nucleated RBCs # Sodium Potassium Chloride Carbon Dioxide Anion Gap BUN Creatinine GFR Calculation BUN/Creatinine Ratio Glucose POC Glucose 220 H Calculated Osmolality Calcium Magnesium Total Bilirubin AST ALT Alkaline Phosphatase Total Creatine Kinase CK-MB (CK-2) Troponin I B-Natriuretic Peptide Total Protein Albumin Globulin Albumin/Globulin Ratio Triglycerides Cholesterol LDL Cholesterol VLDL Cholesterol HDL Cholesterol Heart Disease Risk Ratio Amylase Specialty Discharge - Follow Up or Referrals
--- NOTE | 2016-06-23 17:14 | Sleep Medicine Consult ---
Assessment and Plan (1) Sleep disorder Status: Chronic Assessment and plan: This patient does have symptoms concerning for unspecified sleep apnea. We will initiate HST evaluation on him tonight and follow-up results. If positive , he may benefit from CPAP therapy perioperatively and postoperatively. We would do this with auto titration CPAP. Thank you for this consult and the opportunity to participate in his care. Current Visit: Yes (2) Diabetes Status: Chronic Assessment and plan: The prevalence rate for obstructive sleep apnea in patients with type 2 diabetes can be as high as 86%. Those patients with moderate to severe obstructive sleep apnea are at a greater risk for diabetic nephropathy and neuropathy. Compliance with CPAP therapy for these patients can lead to improvement in glycemic control and improvement in insulin sensitivity. Current Visit: Yes (3) NSTEMI (non-ST elevated myocardial infarction) Status: Acute Assessment and plan: I reviewed the Rivera data from Lancet 2004 with the patient to their understanding. This study proved significant reduction in the risk of fatal and nonfatal cardiac events in patients with severe obstructive sleep apnea compliant with CPAP, in comparison with those noncompliant with CPAP for severe sleep apnea. Current Visit: Yes History of Present Illness Chief complaint: Sleep apnea History of present illness: Mr. 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 He was evaluated in found to have evidence of coronary artery disease and is to undergo bypass grafting surgery on Tuesday. He has a long history of loud snoring with disrupted sleep. He will awaken multiple times at night and at least once or twice to urinate. He is bothered by fatigue and sleepiness during the day. He will heat treat puller his truck to take a nap at times and get refreshed. On discussion with me, he had an Cope sleepiness score of at least 11. He has never been told that he stops breathing during his sleep. He does have a history of type 2 diabetes. Home Medications Medication Instructions Recorded Confirmed Type No Known Home Medications [No 06/22/16 06/22/16 History Known Home Medications] Allergies Allergy/AdvReac Type Severity Reaction Status Date / Time codeine Allergy ITCHING Verified 01/11/15 09:24 Review of systems: Otherwise unremarkable from a sleep standpoint. Exam (Pulmonay) H&P - Constitutional Vitals: Period Temp Pulse Resp BP Sys/Nunez Pulse Ox Last 24 Hr 97 F-98.1 F 68-83 18-20 110-141/71-93 94-99 Exam: He is alert and responsive in no acute distress. Pupils equal round reactive to light and accommodation. Extraocular movements intact. Oropharynx with a class III Mallampati exam. Neck is supple without adenopathy or thyromegaly. No supraclavicular adenopathy is noted. Chest with symmetrical breath sounds without focal wheeze, rhonchi, or rales. Cardiac exam reveals a regular rhythm without murmur or gallop. Abdomen soft nontender without palpable hepatosplenomegaly or mass. Extremities are without clubbing, cyanosis, or edema. Neurologically, he is grossly intact. He moves all extremities with good strength. Medical,Surgical,& Family Hx - Medical History Cardio: No history of: CHF, CAD, Hypertension, CA Endocrine: History of: Diabetes Mellitus (NIDDM) Respiratory: History of: Pneumonia Genitourinary: History of: Prostate Problems (CA) - Surgical History Reproductive Surgeries: Surgical HX of;: Prostate Surgery Orthopedic Surgeries: Surgical HX of;: Orthopedic Surgery (lane knee surg) - Family History Family History: Reports;: Family Cancer (mother), Family Diabetes (father) - Social History Smoking Status: Never smoker Frequency of Alcohol Use: None Type of Drug Use: None Marital Status: Results - Labs CBC & BMP: 06/23/16 03:56 06/23/16 03:56 Lab Results: I have reviewed the past 24 hour labs Quality Measures - VTE Contraindication to Pharmacological VTE Prophylaxis: High Risk of Bleeding Specialty Discharge - Follow Up or Referrals
--- NOTE | 2016-06-23 20:38 | ECHO Report ---
Beck Paulson 06/23/2016 Exam Date: 10:14 Referring Physician: Technologist: Age: 56 Ht (in): 75 Wt (lb): 241 MExam Location: [facility] Gender: Echo [id number]: Chest pain, unspecified, Shortness Indications:of breath, Chronic fatigue, unspecified, NIDDM, Sleep disorder, s/p CATH BP: 141 / 93 HR: 75 SinusRhythm: FairTechnical Quality: IMPRESSIONS 1. Left ventricle is probably upper is normal size to mildly dilated. There is global hypokinesis with ejection fraction 45% at best maybe 50%. 2. Other car chambers are normal size. 3. Mitral valve is functionally in anatomically normal. 4. Sclerotic calcified aortic valve with trace insufficiency. 5. Tricuspid and pulmonic valve are grossly unremarkable. MEASUREMENTS (Male / Female) Normal Values 2D ECHO LV Diastolic Diameter PLAX 6.0 cm 4.2 - 5.9 / 3.9 - 5.3 cm LV Systolic Diameter PLAX 4.4 cm LV Fractional Shortening PLAX 26.8 % IVS Diastolic Thickness 0.9 cm 0.6 - 1.0 / 0.6 - 0.9 cm LVPW Diastolic Thickness 1.0 cm 0.6 - 1.0 / 0.6 - 0.9 cm RV Internal Dim ED PLAX 2.4 cm Aortic Root Diameter 3.5 cm LA Systolic Diameter LX 3.3 cm 3.0 - 4.0 / 2.7 - 3.8 cm FINDINGS Left Ventricle Mildly increased left ventricular cavity size. Normal left ventricular wall thickness. There appears to be some global hypokinesis with ejection fraction of 45 maybe 50% at best. Right Ventricle The right ventricle is normal in size and function. Right Atrium The right atrium is normal in size. Left Atrium The left atrium is normal in size. Mitral Valve Morphologically normal mitral valve without significant stenosis or prolapse. There is no mitral regurgitation. Aortic Valve Mitral valve is a tricuspid structure with mild calcification and sclerosing. Trace aortic valve regurgitation but no stenosis. Tricuspid Valve Morphologically normal tricuspid valve without significant stenosis or regurgitation. Pulmonary artery systolic pressure is normal. Pulmonic Valve Morphologically normal pulmonic valve. Trace pulmonary valve regurgitation. Pericardium Normal pericardium without effusion. Aorta Normal ascending aorta dimension. Luis Mansfield MD (Electronically Signed) 23 June 2016 Final Date: 20:37
[2016-06-23] MEDS: CHLORHEXIDINE 0.12% ORAL RINSE 60 ML BOTTLE SWISH/SPIT SCH (21:42)
[2016-06-24] MEDS: METOPROLOL TARTRATE 25 MG TABLET PO SCH ×5 (00:09→23:35)
[2016-06-24] MEDS: NITROGLYCERIN 2% OINT 1 INCH/GM PACK TOP SCH ×4 (00:09→18:10)
[2016-06-24 02:51] LABS: ABG Base Excess 0.1 MMOL/L (-2.5-2.5); ABG HCO3 24.4 MMOL/L (20-26); ABG Oxygen Saturation 95.8 % (95-100); ABG PCO2 38.5 MM HG (35-48); ABG PH 7.411 (7.35-7.45); ABG PO2 80.1 MM HG (80-95); ABG TCO2 20.7 MMOL/L (23-27); Allen Test Positive
[2016-06-24 04:09] LABS: Basophils # 0.1 10*3/uL (0.0-0.2); Basophils % 0.8 % (0.0-0.8); Eosinophils # 0.2 10*3/uL (0.0-0.87); Hemoglobin 14.2 GM/DL (14.0-18.0); Immature Granulocytes % 0.4 %; Immature Granulocytes Absolute 0.04 #; Lymphocytes # 2.5 10*3/uL (1.4-4.0); Mean Corpuscular HGB Conc 35.5 GM/DL (32-36); Mean Corpuscular Hemoglobin 31 PG (27-34); Mean Corpuscular Volume 87.1 FL (87-102); Mean Platelet Volume 10.3 FL (9.6-12.0); Monocytes # 0.6 10*3/uL (0.11-0.8); Monocytes % 6.7 % (1.7-12.7); Neutrophils # 5.5 10*3/uL (1.4-7.4); Neutrophils % 62.1 % (38.7-73.9); Platelet Count 259 T/CUMM (130-400); Red Blood Count 4.59 MC/CUMM (3.8-5.5); Red Cell Distribution Width 11.9 % (9.3-17.3); White Blood Count 8.9 T/CUMM (4-12)
[2016-06-24 04:39] LABS: Albumin 3.4 G/DL (3.4-5.0); Bilirubin,Total 1.2 MG/DL (0.2-1.0); Calcium 8.5 MG/DL (8.5-10.1); Osmolality,Calculated 276.7 MOS/KG (273-304); Potassium 3.9 MMOL/L (3.5-5.1)
--- NOTE | 2016-06-24 06:19 | Cardiothoracic Progress Note ---
Cardiothoracic Subjective Interval history: Patient is set for surgery in the morning on Tuesday. Exam (Progress Note) - Constitutional Vitals: Period Temp Pulse Resp BP Sys/Nunez Pulse Ox Last 24 Hr 97 F-98.2 F 68-83 16-20 110-148/70-93 94-99 Result/EKG - Labs CBC & BMP: 06/24/16 03:10 06/24/16 03:10 Labs: Laboratory Results - last 24 hr 06/23/16 06/23/16 06/23/16 07:19 11:37 15:05 WBC RBC Hgb Hct MCV MCH MCHC RDW Plt Count MPV Neut % (Auto) Lymph % (Auto) [place] % (Auto) Eos % (Auto) Baso % (Auto) Neut # (Auto) Lymph # (Auto) [place] # (Auto) Eos # (Auto) Baso # (Auto) Immature Gran % Nucleated RBC % Immature Gran # Nucleated RBCs # ABG pH ABG pCO2 ABG pO2 ABG HCO3 ABG Total CO2 ABG O2 Saturation ABG Base Excess FiO2 Sodium Potassium Chloride Carbon Dioxide Anion Gap BUN Creatinine GFR Calculation BUN/Creatinine Ratio Glucose POC Glucose 274 H 220 H 253 H Calculated Osmolality Calcium Total Bilirubin AST ALT Alkaline Phosphatase Total Protein Albumin Globulin Albumin/Globulin Ratio Blood Type Antibody Screen 06/23/16 06/24/16 06/24/16 19:02 02:40 03:10 WBC 8.9 D RBC 4.59 Hgb 14.2 Hct 40.0 L MCV 87.1 MCH 31 MCHC 35.5 RDW 11.9 Plt Count 259 MPV 10.3 Neut % (Auto) 62.1 Lymph % (Auto) 28.0 [place] % (Auto) 6.7 Eos % (Auto) 2.0 Baso % (Auto) 0.8 Neut # (Auto) 5.5 Lymph # (Auto) 2.5 [place] # (Auto) 0.6 Eos # (Auto) 0.2 Baso # (Auto) 0.1 Immature Gran % 0.4 Nucleated RBC % 0.0 Immature Gran # 0.04 Nucleated RBCs # 0.00 ABG pH 7.411 ABG pCO2 38.5 ABG pO2 80.1 ABG HCO3 24.4 ABG Total CO2 20.7 L ABG O2 Saturation 95.8 ABG Base Excess 0.1 FiO2 28.00 Sodium Potassium Chloride Carbon Dioxide Anion Gap BUN Creatinine GFR Calculation BUN/Creatinine Ratio Glucose POC Glucose 205 H Calculated Osmolality Calcium Total Bilirubin AST ALT Alkaline Phosphatase Total Protein Albumin Globulin Albumin/Globulin Ratio Blood Type Antibody Screen 06/24/16 06/24/16 06/24/16 03:10 03:10 Unknown WBC RBC Hgb Hct MCV MCH MCHC RDW Plt Count MPV Neut % (Auto) Lymph % (Auto) [place] % (Auto) Eos % (Auto) Baso % (Auto) Neut # (Auto) Lymph # (Auto) [place] # (Auto) Eos # (Auto) Baso # (Auto) Immature Gran % Nucleated RBC % Immature Gran # Nucleated RBCs # ABG pH ABG pCO2 ABG pO2 ABG HCO3 ABG Total CO2 ABG O2 Saturation ABG Base Excess FiO2 Sodium 138 Potassium 3.9 Chloride 102 Carbon Dioxide 27 Anion Gap 12.9 BUN 15 Creatinine 1.00 GFR Calculation 114 BUN/Creatinine Ratio 15.00 Glucose 116 H POC Glucose Calculated Osmolality 276.7 Calcium 8.5 Total Bilirubin 1.20 H AST 13 ALT 21 Alkaline Phosphatase 67 Total Protein 6.0 L Albumin 3.4 Globulin 2.6 Albumin/Globulin Ratio 1.3 Blood Type O POSITIVE O POSITIVE Antibody Screen Negative Quality Measures - VTE Contraindication to Pharmacological VTE Prophylaxis: High Risk of Bleeding Specialty Discharge - Follow Up or Referrals
[2016-06-24] MEDS: ENOXAPARIN 120 MG/0.8 ML SYRINGE SUBCUT SCH (06:43)
--- NOTE | 2016-06-24 07:39 | EKG Report ---
Stationary ECG Study [facility] Test Date: 06/24/2016 7:36:43 AM Pat Name: MATTEO LUCIO Department: Room: 266 Gender: M Endoscopy Support Specialist: LUIS : 1960 Requested by: Yordan Reynolds Order Number: [id number] Reading MD: BLAKE CHA Intervals [place] Rate: 75 P: 57 GA: 183 QRS: -13 QRSD: 107 T: 80 QT: 389 QTc: 419 Interpretive Statements SINUS RHYTHM SEPTAL MYOCARDIAL INFARCTION, PROBABLY RECENT Electronically Signed On 06-28-16 11:43:52 CDT by BLAKE CHA [email or web address]
[2016-06-24] MEDS: INSULIN REGULAR 100 UNIT/ML SUBCUT SCH ×4 (08:36→22:00)
[2016-06-24] MEDS: ASPIRIN EC 325 MG TABLET PO SCH (08:36)
[2016-06-24] MEDS: PANTOPRAZOLE 40 MG TABLET PO SCH (08:36)
[2016-06-24] MEDS: CHLORHEXIDINE 0.12% ORAL RINSE 60 ML BOTTLE SWISH/SPIT SCH ×2 (08:37→22:01)
--- NOTE | 2016-06-24 10:00 | XRay Report ---
XR chest 2V Indication: Coronary artery disease Comparison: 23 June 2016 Findings: The heart and mediastinum are normal in size and configuration. The pulmonary vascularity is normal in caliber. No lung infiltrates, effusions, pneumothorax or other abnormality is demonstrated. Impression: Normal chest x-ray PROCEDURE INTERPRETED AT [facility] DEPARTMENT OF RADIOLOGY Final Report Signed by: Dr. Forrest Baum
[2016-06-24] MEDS: CHLORHEXIDINE 4% SOLN 118 ML BOTTLE TOP SCH ×3 (10:05→22:01)
[2016-06-24] MEDS ORDERED: LORazepam 1 MG TABLET PO ONE (10:40)
[2016-06-24] MEDS ORDERED: FAMOTIDINE 20 MG TABLET PO ONE (10:40)
--- NOTE | 2016-06-24 12:58 | Sleep Medicine Progress Note ---
Assessment and Plan (1) Sleep disorder Status: Chronic Assessment and plan: Patient did have evidence of obstructive sleep apnea on HST evaluation. We will CPAP with auto titration tonight. Current Visit: Yes (2) Diabetes Status: Chronic Current Visit: Yes (3) NSTEMI (non-ST elevated myocardial infarction) Status: Acute Current Visit: Yes Sleep Medicine Subjective Interval history: Patient underwent HST evaluation last night and was found to have moderate obstructive sleep apnea with an AHI of 29. He did have some central events and obstructive events and had O2 desaturation to lows of 85%. We will go ahead and initiate auto titration CPAP on him tonight. He will be fitted with a CPAP device by technical asst and pressure adjustments can be made if needed. Will follow up his response postoperatively. He is to undergo bypass surgery tomorrow. I did discuss the case with Dr. Chapa. Exam (Progress Note) - Constitutional Vitals: Period Temp Pulse Resp BP Sys/Nunez Pulse Ox Last 24 Hr 98 F-98.2 F 75-84 16-20 110-148/69-78 93-99 Results - Labs CBC & BMP: 06/24/16 03:10 06/24/16 03:10 Lab Results: I have reviewed the past 24 hour labs Specialty Discharge - Follow Up or Referrals
[2016-06-24] MEDS ORDERED: CEFUROXIME INJ 1,500 MG in SODIUM CHLORIDE 0.9% 100 ML IV ONE (13:18)
[2016-06-24] MEDS ORDERED: CHLORHEXIDINE 4% SOLN 118 ML BOTTLE TOP SCH (15:00)
--- NOTE | 2016-06-24 15:11 | Cardiology Progress Note ---
<Bronwyn Vale E - Last Filed: 06/24/16 15:39> Assessment and Plan - Time spent with patient Time spent with patient: Greater than 30 minutes (1) NSTEMI (non-ST elevated myocardial infarction) Status: Resolved Assessment and plan: SEE PLAN OF CARE LISTED BELOW Current Visit: Yes (2) Diabetes Status: Chronic Assessment and plan: SEE PLAN OF CARE LISTED BELOW Current Visit: Yes (3) Obesity Status: Chronic Assessment and plan: SEE PLAN OF CARE LISTED BELOW Current Visit: Yes (4) Dyslipidemia Status: Chronic Assessment and plan: See plan of care listed below Current Visit: Yes (5) Sleep apnea Status: Chronic Assessment and plan: See plan of care listed below Current Visit: Yes Cardiology - PN: Subj Interval history: SUMMARY: Mr. Paulson presented to the emergency department of [facility] June 21, 2016 with complaints of chest pain. He was ultimately taken to the cardiac catheterization lab where Dr. Dean performed heart catheterization where three-vessel coronary artery disease. EF 45%. He is scheduled for coronary artery bypass grafting in the morning. DAY 3, JUNE 24, 2016: Patient has been ambulating without chest pain, heaviness or tightness. Dr. Garrido has seen patient. He underwent HST last evening was found to have moderate sleep apnea. Plan is in place to treat accordingly. He is currently taking aspirin, metoprolol. Adding lipid- lowering agent. (LDL 113). Echocardiogram reveals EF 45-50%, no significant valvular abnormality. ASSESSMENT/PLAN: 1. NSTEMI -scheduled for bypass surgery tomorrow. 2. DIABETES -continue sliding scale insulin. U 3. SUSPECTED HYPERTENSION -tolerating low-dose beta blockade without difficulty. Blood pressure will allow for introduction of an CONSUELO inhibitor. 4. DYSLIPIDEMIA -LDL not at goal. Adding atorvastatin 40 mg orally each evening 5. OBESITY -dietary counseling prior to discharge 6. MODERATE SLEEP APNEA -appreciate Dr. Garrido's assistance. Exam (Progress Note) - Constitutional Vitals: Period Temp Pulse Resp BP Sys/Nunez Pulse Ox Last 24 Hr 98 F-98.2 F 75-84 16-20 110-148/69-78 93-99 Exam: General: [Appears well with no apparent distress.] [Pleasant and cooperative. ] [Appears comfortable.] HEENT: [PERRL, normocephalic, atraumatic. Mucous membranes moist. No jaundice noted. Conjunctiva moist and clear, sclerae anicteric] Neck: No JVD/HJR, no thyromegaly or lymphadenopathy noted. No carotid bruit appreciated Cardiac: [Regular rate and rhythm.] [No murmur rub or gallop.] Lungs: [Clear to auscultation without accessory muscle use to assist the respiratory pattern.] Not requiring oxygen Abdomen: Soft, bowel sounds normoactive. Nontender and nondistended. No abdominal bruit or thrill noted. No masses noted. Musculoskeletal: No fluid collection. Decreased range of motion is noted. Extremities: Right groin soft, free of hematoma or bruit. No clubbing, cyanosis noted. [ No edema noted.] Upper extremity pulses 2+. Lower extremity pulses 2+. Capillary refill less than 3 seconds. Skin: No unusual lesions or rashes. No skin breakdown appreciated. Neuro: Awake, alert and oriented 3. Moves all extremities well without hemiparesis or paralysis. No essential tremor is appreciated. Result/EKG - Labs CBC & BMP: 06/24/16 03:10 06/24/16 03:10 Lab Results: I have reviewed the past 24 hour labs Labs: Laboratory Results - last 24 hr 06/23/16 06/23/16 06/24/16 15:05 19:02 02:40 WBC RBC Hgb Hct MCV MCH MCHC RDW Plt Count MPV Neut % (Auto) Lymph % (Auto) [place] % (Auto) Eos % (Auto) Baso % (Auto) Neut # (Auto) Lymph # (Auto) [place] # (Auto) Eos # (Auto) Baso # (Auto) Immature Gran % Nucleated RBC % Immature Gran # Nucleated RBCs # ABG pH 7.411 ABG pCO2 38.5 ABG pO2 80.1 ABG HCO3 24.4 ABG Total CO2 20.7 L ABG O2 Saturation 95.8 ABG Base Excess 0.1 FiO2 28.00 Sodium Potassium Chloride Carbon Dioxide Anion Gap BUN Creatinine GFR Calculation BUN/Creatinine Ratio Glucose POC Glucose 253 H 205 H Calculated Osmolality Calcium Total Bilirubin AST ALT Alkaline Phosphatase Total Protein Albumin Globulin Albumin/Globulin Ratio Blood Type Antibody Screen Crossmatch 06/24/16 06/24/16 06/24/16 03:10 03:10 03:10 WBC 8.9 D RBC 4.59 Hgb 14.2 Hct 40.0 L MCV 87.1 MCH 31 MCHC 35.5 RDW 11.9 Plt Count 259 MPV 10.3 Neut % (Auto) 62.1 Lymph % (Auto) 28.0 [place] % (Auto) 6.7 Eos % (Auto) 2.0 Baso % (Auto) 0.8 Neut # (Auto) 5.5 Lymph # (Auto) 2.5 [place] # (Auto) 0.6 Eos # (Auto) 0.2 Baso # (Auto) 0.1 Immature Gran % 0.4 Nucleated RBC % 0.0 Immature Gran # 0.04 Nucleated RBCs # 0.00 ABG pH ABG pCO2 ABG pO2 ABG HCO3 ABG Total CO2 ABG O2 Saturation ABG Base Excess FiO2 Sodium 138 Potassium 3.9 Chloride 102 Carbon Dioxide 27 Anion Gap 12.9 BUN 15 Creatinine 1.00 GFR Calculation 114 BUN/Creatinine Ratio 15.00 Glucose 116 H POC Glucose Calculated Osmolality 276.7 Calcium 8.5 Total Bilirubin 1.20 H AST 13 ALT 21 Alkaline Phosphatase 67 Total Protein 6.0 L Albumin 3.4 Globulin 2.6 Albumin/Globulin Ratio 1.3 Blood Type O POSITIVE Antibody Screen Negative Crossmatch See Detail 06/24/16 06/24/16 06/24/16 08:11 11:36 Unknown WBC RBC Hgb Hct MCV MCH MCHC RDW Plt Count MPV Neut % (Auto) Lymph % (Auto) [place] % (Auto) Eos % (Auto) Baso % (Auto) Neut # (Auto) Lymph # (Auto) [place] # (Auto) Eos # (Auto) Baso # (Auto) Immature Gran % Nucleated RBC % Immature Gran # Nucleated RBCs # ABG pH ABG pCO2 ABG pO2 ABG HCO3 ABG Total CO2 ABG O2 Saturation ABG Base Excess FiO2 Sodium Potassium Chloride Carbon Dioxide Anion Gap BUN Creatinine GFR Calculation BUN/Creatinine Ratio Glucose POC Glucose 222 H 190 H Calculated Osmolality Calcium Total Bilirubin AST ALT Alkaline Phosphatase Total Protein Albumin Globulin Albumin/Globulin Ratio Blood Type O POSITIVE Antibody Screen Crossmatch - Diagnostic Findings Procedure: Chest x-ray: report reviewed by me - EKG EKG results: interpreted by me EKG shows: sinus rhythm Quality Measures - VTE Contraindication to Pharmacological VTE Prophylaxis: High Risk of Bleeding Specialty Discharge - Follow Up or Referrals <Luis Mansfield - Last Filed: 06/24/16 18:44> Cardiology - PN: Subj Interval history: Patient for CABG tomorrow. He has multivessel disease. He is stable at this time. Exam (Progress Note) - Constitutional Vitals: Period Temp Pulse Resp BP Sys/Nunez Pulse Ox Last 24 Hr 97.6 F-98.2 F 75-96 16-20 122-148/69-78 93-99 Result/EKG - Labs CBC & BMP: 06/24/16 03:10 06/24/16 03:10 Labs: Laboratory Results - last 24 hr 06/23/16 06/24/16 06/24/16 19:02 02:40 03:10 WBC 8.9 D RBC 4.59 Hgb 14.2 Hct 40.0 L MCV 87.1 MCH 31 MCHC 35.5 RDW 11.9 Plt Count 259 MPV 10.3 Neut % (Auto) 62.1 Lymph % (Auto) 28.0 [place] % (Auto) 6.7 Eos % (Auto) 2.0 Baso % (Auto) 0.8 Neut # (Auto) 5.5 Lymph # (Auto) 2.5 [place] # (Auto) 0.6 Eos # (Auto) 0.2 Baso # (Auto) 0.1 Immature Gran % 0.4 Nucleated RBC % 0.0 Immature Gran # 0.04 Nucleated RBCs # 0.00 ABG pH 7.411 ABG pCO2 38.5 ABG pO2 80.1 ABG HCO3 24.4 ABG Total CO2 20.7 L ABG O2 Saturation 95.8 ABG Base Excess 0.1 FiO2 28.00 Sodium Potassium Chloride Carbon Dioxide Anion Gap BUN Creatinine GFR Calculation BUN/Creatinine Ratio Glucose POC Glucose 205 H Calculated Osmolality Calcium Total Bilirubin AST ALT Alkaline Phosphatase Total Protein Albumin Globulin Albumin/Globulin Ratio Blood Type Antibody Screen Crossmatch 06/24/16 06/24/16 06/24/16 03:10 03:10 08:11 WBC RBC Hgb Hct MCV MCH MCHC RDW Plt Count MPV Neut % (Auto) Lymph % (Auto) [place] % (Auto) Eos % (Auto) Baso % (Auto) Neut # (Auto) Lymph # (Auto) [place] # (Auto) Eos # (Auto) Baso # (Auto) Immature Gran % Nucleated RBC % Immature Gran # Nucleated RBCs # ABG pH ABG pCO2 ABG pO2 ABG HCO3 ABG Total CO2 ABG O2 Saturation ABG Base Excess FiO2 Sodium 138 Potassium 3.9 Chloride 102 Carbon Dioxide 27 Anion Gap 12.9 BUN 15 Creatinine 1.00 GFR Calculation 114 BUN/Creatinine Ratio 15.00 Glucose 116 H POC Glucose 222 H Calculated Osmolality 276.7 Calcium 8.5 Total Bilirubin 1.20 H AST 13 ALT 21 Alkaline Phosphatase 67 Total Protein 6.0 L Albumin 3.4 Globulin 2.6 Albumin/Globulin Ratio 1.3 Blood Type O POSITIVE Antibody Screen Negative Crossmatch See Detail 06/24/16 06/24/16 06/24/16 11:36 15:51 Unknown WBC RBC Hgb Hct MCV MCH MCHC RDW Plt Count MPV Neut % (Auto) Lymph % (Auto) [place] % (Auto) Eos % (Auto) Baso % (Auto) Neut # (Auto) Lymph # (Auto) [place] # (Auto) Eos # (Auto) Baso # (Auto) Immature Gran % Nucleated RBC % Immature Gran # Nucleated RBCs # ABG pH ABG pCO2 ABG pO2 ABG HCO3 ABG Total CO2 ABG O2 Saturation ABG Base Excess FiO2 Sodium Potassium Chloride Carbon Dioxide Anion Gap BUN Creatinine GFR Calculation BUN/Creatinine Ratio Glucose POC Glucose 190 H 197 H Calculated Osmolality Calcium Total Bilirubin AST ALT Alkaline Phosphatase Total Protein Albumin Globulin Albumin/Globulin Ratio Blood Type O POSITIVE Antibody Screen Crossmatch
[2016-06-24] MEDS: SODIUM CHLORIDE 0.9% 1,000 ML IV SCH (19:15)
[2016-06-24] MEDS ORDERED: ATORVASTATIN 40 MG TABLET PO SCH (21:00)
[2016-06-24] MEDS ORDERED: CLORAZEPATE 7.5 MG TABLET PO ONE (22:00)
[2016-06-25] MEDS: NITROGLYCERIN 2% OINT 1 INCH/GM PACK TOP SCH ×2 (00:16→07:09)
[2016-06-25] MEDS ORDERED: VANCOMYCIN 1,000 MG VIAL ONE (05:27)
[2016-06-25] MEDS ORDERED: TISSUE ADHESIVE 1 EACH APPLICATOR TOP ONE (05:27)
[2016-06-25] MEDS ORDERED: PAPAVERINE 60 MG/2 ML VIAL ONE (05:27)
[2016-06-25] MEDS ORDERED: FAMOTIDINE 20 MG TABLET PO ONE (06:00)
[2016-06-25] MEDS ORDERED: CEFUROXIME INJ 1,500 MG in SODIUM CHLORIDE 0.9% 100 ML IV ONE (06:00)
[2016-06-25] MEDS ORDERED: LORazepam 1 MG TABLET PO ONE (06:00)
[2016-06-25] MEDS: METOPROLOL TARTRATE 25 MG TABLET PO SCH (06:11)
[2016-06-25] MEDS ORDERED: ETOMIDATE 20 MG/10 ML VIAL IV ONE (06:45)
[2016-06-25] MEDS ORDERED: PHENYLEPHRINE 1 MG/10 ML SYRINGE IV ONE (06:45)
[2016-06-25] MEDS ORDERED: AMINOCAPROIC ACID 5,000 MG/20 ML VIAL IV ONE (06:45)
[2016-06-25] MEDS ORDERED: VECURONIUM 10 MG VIAL IV ONE (06:45)
[2016-06-25] MEDS ORDERED: CALCIUM CHLORIDE 1,000 MG/10 ML SYRINGE IV ONE ×2 (06:45→08:45)
[2016-06-25] MEDS ORDERED: MINERAL OIL/PETROLATUM OPH OINT 3.5 GM TUBE ONE (06:45)
[2016-06-25] MEDS ORDERED: PHENYLEPHRINE 20 MG/250 ML PREMIX IV ONE (06:45)
[2016-06-25] MEDS ORDERED: LIDOCAINE 2% 5 ML VIAL ONE (06:45)
[2016-06-25] MEDS ORDERED: NITROGLYCERIN 50 MG/250 ML BOTTLE IV ONE (06:45)
[2016-06-25 07:34] LABS: ABG Base Excess -1.2 MMOL/L (-2.5-2.5); ABG HCO3 23.8 MMOL/L (20-26); ABG Oxygen Saturation 99.2 % (95-100); ABG PCO2 40.8 MM HG (35-48); ABG PH 7.383 (7.35-7.45); ABG PO2 411.9 MM HG (80-95); Glucose Heart Surgery 190 MG/DL (74-106); Ionized Calcium Arterial 1.11 MMOL/L (1.21-1.46); PCO2 Patient Temp Arterial 40.8 MMHG; PH Patient Temp Arterial 7.383; PO2 Patient Temp Arterial 411.9 MM HG; Patient Temperature 37 CELCIUS; Potassium Heart/CVR 4.1 MMOL/L (3.5-5.1); Sodium Heart/CVR 132 MMOL/L (135-145)
[2016-06-25 08:14] LABS: Apearance,Urine CLEAR (Clear); Bilirubin,Urine Negative (Negative); Blood, Urine Negative (Negative); Glucose,Urine (UA) Negative (Negative); Ketones,Urine 5 mg/dL (Negative); Nitrite,Urine Negative (Negative); Protein,Urine Negative; Urine Color Yellow (Yellow); Urine Specific Gravity 1.012 (1.001-1.035); Urine Urobilinogen < 2.0 EU/DL (0.2-1.0); WBC,Urine <1 /HPF (0-6)
--- NOTE | 2016-06-25 08:21 | Sleep Medicine Progress Note ---
Assessment and Plan (1) Diabetes Status: Chronic Current Visit: Yes (2) NSTEMI (non-ST elevated myocardial infarction) Status: Resolved Current Visit: Yes (3) Sleep apnea Status: Chronic Assessment and plan: Resume nightly CPAP once extubated after bypass surgery. Follow-up response with daily downloads. Current Visit: Yes Sleep Medicine Subjective Interval history: Patient did sleep with CPAP last night. I discussed it with his . He actually used it about 5-1/2 hours. She stated that he had a little bit of adjustment getting used to it. He was placed on AutoPap and his best pressure was about 12 cm. He still has some respiratory events with an AHI of 13 but his diagnostic AHI was in the upper 20s. He did have a significant central component suggested on his overnight home sleep test. We may be seeing or some central events and he may end up requiring formal titration in the sleep lab after he recovers from his bypass surgery. However, often with time, these central events will resolve as patient suggested CPAP therapy. Obviously, having CABG today, he will be in the ICU over the weekend and can be placed on CPAP once a extubated. Will recheck on him next week. Exam (Progress Note) - Constitutional Vitals: Period Temp Pulse Resp BP Sys/Nunez Pulse Ox Last 24 Hr 97.6 F-99.8 F 84-96 16-20 130-138/70-78 96-98 Results - Labs CBC & BMP: 06/25/16 07:20 06/24/16 03:10 Specialty Discharge - Follow Up or Referrals
[2016-06-25] MEDS ORDERED: NITROPRUSSIDE 50 MG/2 ML VIAL ONE (08:44)
[2016-06-25] MEDS ORDERED: POTASSIUM CHLORIDE RIDER 100 ML IV ONE (08:45)
[2016-06-25] MEDS ORDERED: PHENYLEPHRINE DRIP 40 MG/250 ML PREMIX IV ONE (08:45)
[2016-06-25] MEDS ORDERED: EPINEPHrine 1 MG/10 ML SYRINGE ONE (08:46)
[2016-06-25] MEDS ORDERED: SODIUM BICARBONATE 50 MEQ/50 ML SYRINGE IV ONE ×2 (08:46→09:53)
[2016-06-25 08:55] LABS: Hemoglobin Heart Surgery 10.8 G/DL (14.0-18.0); PCO2 Patient Temp Venous 39.3 MM HG; PH Patient Temp Venous 7.409; PO2 Patient Temp Venous 43.1 MM HG; Potassium Heart/CVR 4.8 MMOL/L (3.5-5.1); VBG Base Excess -0.3 MEQ/L (0-4); VBG HCO3 24.5 MEQ/L (24-28); VBG Oxygen Saturation 79.7 %; VBG PCO2 41.1 MMHG (41-51); VBG PH 7.394; VBG PO2 46.2 MMHG (17-40)
[2016-06-25] MEDS: INSULIN REGULAR 100 UNIT/ML SUBCUT SCH (09:33)
[2016-06-25] MEDS: CHLORHEXIDINE 0.12% ORAL RINSE 60 ML BOTTLE SWISH/SPIT SCH ×2 (09:34→21:11)
[2016-06-25] MEDS: PANTOPRAZOLE 40 MG TABLET PO SCH (09:34)
[2016-06-25] MEDS: SODIUM CHLORIDE 0.9% 1,000 ML IV SCH (09:34)
[2016-06-25] MEDS: ASPIRIN EC 325 MG TABLET PO SCH (09:34)
[2016-06-25 09:52] LABS: ABG HCO3 22.4 MMOL/L (20-26); ABG Oxygen Saturation 98.9 % (95-100); ABG PCO2 36.8 MM HG (35-48); ABG PH 7.402 (7.35-7.45); ABG PO2 411.9 MM HG (80-95); ABG TCO2 23.5 MMOL/L (23-27); Glucose Heart Surgery 291 MG/DL (74-106); Hemoglobin Heart Surgery 11.9 G/DL (14.0-18.0); Ionized Calcium Arterial 1.14 MMOL/L (1.21-1.46); PCO2 Patient Temp Arterial 36.8 MMHG; PH Patient Temp Arterial 7.402; PO2 Patient Temp Arterial 411.9 MM HG; Patient Temperature 37 CELCIUS; Potassium Heart/CVR 5.5 MMOL/L (3.5-5.1); Sodium Heart/CVR 125 MMOL/L (135-145)
[2016-06-25] MEDS ORDERED: MANNITOL 12.5 GM/50 ML VIAL IV ONE (09:53)
[2016-06-25] MEDS ORDERED: PROTAMINE SULFATE 250 MG/25 ML VIAL IV ONE (09:53)
[2016-06-25] MEDS ORDERED: ALBUMIN 25% 25 GM/100 ML VIAL IV ONE (09:53)
[2016-06-25] MEDS ORDERED: HEPARIN 10,000 UNIT/10 ML VIAL ONE (09:53)
[2016-06-25] MEDS ORDERED: FUROSEMIDE 20 MG/2 ML VIAL ONE (09:53)
[2016-06-25] MEDS ORDERED: methylPREDNISolone SOD SUC 1,000 MG/8 ML VIAL ONE (09:53)
[2016-06-25] MEDS ORDERED: MAGNESIUM SULFATE 1 GM/2 ML VIAL ONE (09:53)
[2016-06-25] MEDS ORDERED: PROTAMINE SULFATE 50 MG/5 ML VIAL IV ONE ×3 (09:54→11:00)
[2016-06-25] MEDS ORDERED: DEXTROSE 5% KCL 20 MEQ 20 MEQ/1,000 ML BAG IV ONE (09:54)
[2016-06-25] MEDS ORDERED: DEXTROSE 50% 25 GM/50 ML VIAL IV PRN ×2 (10:24)
[2016-06-25] MEDS ORDERED: MIDAZOLAM 2 MG/2 ML VIAL IV PRN (10:24)
[2016-06-25] MEDS ORDERED: NITROPRUSSIDE 100 MG in DEXTROSE 5% 250 ML IV PRN (10:24)
[2016-06-25] MEDS ORDERED: VECURONIUM 10 MG VIAL IV PRN ×2 (10:24)
[2016-06-25] MEDS ORDERED: MAGNESIUM SULF RIDER 4 GM in PREMIX 1 EACH IV PRN (10:24)
[2016-06-25] MEDS ORDERED: INSULIN REGULAR 100 UNIT/ML IV PRN (10:24)
[2016-06-25] MEDS ORDERED: CALCIUM CHLORIDE 1,000 MG/10 ML SYRINGE IV PRN (10:24)
[2016-06-25] MEDS ORDERED: MAGNESIUM SULF RIDER 2 GM in PREMIX 1 EACH IV PRN (10:24)
[2016-06-25] MEDS ORDERED: LACTATED RINGERS 250 ML IV PRN (10:24)
[2016-06-25] MEDS ORDERED: MIDAZOLAM 10 MG/2 ML VIAL IV PRN (10:24)
[2016-06-25] MEDS ORDERED: ONDANSETRON 4 MG/2 ML VIAL IV PRN (10:24)
[2016-06-25] MEDS ORDERED: ACETAMINOPHEN 650 MG SUPP RECTAL PRN (10:24)
[2016-06-25] MEDS ORDERED: PHENYLEPHRINE DRIP 40 MG/250 ML PREMIX IV PRN (10:24)
[2016-06-25] MEDS ORDERED: INSULIN REGULAR 100 UNIT/ML IV ONE (10:24)
[2016-06-25] MEDS ORDERED: MORPHINE 10 MG/1 ML VIAL IV PRN (10:24)
[2016-06-25] MEDS ORDERED: MIDAZOLAM 10 MG/2 ML VIAL ONE (10:27)
[2016-06-25] MEDS ORDERED: SUFentanil 250 MCG/5 ML AMP ONE (10:27)
[2016-06-25] MEDS: SODIUM CHLORIDE 0.45% 1,000 ML IV SCH ×2 (10:30)
--- NOTE | 2016-06-25 10:32 | Operative Note ---
Date of procedure: 06/25/16 Pre-op diagnosis: Coronary artery disease Post-op diagnosis: same Procedure: Procedure: Coronary artery bypass grafting 2 with a left internal mammary graft to the anterior descending coronary artery and saphenous vein graft to the obtuse marginal coronary artery. Findings: Patient is a 56-year-old man who had recent onset of substernal chest discomfort and that cardiac catheterization was found to have critical coronary disease patient was referred for bypass surgery at the time of surgery left ventricular function was noted to be mildly impaired. A left internal mammary graft was placed to a large anterior descending coronary artery and saphenous vein graft was placed to a large first circumflex marginal coronary artery. Right coronary artery presented no suitable graft site for distal anastomosis. And therefore was not grafted. The distal circumflex coronary artery was small coming out of the AV groove and therefore it was not grafted. Patient tolerated the procedure well and returned to recovery in satisfactory condition. Procedure: Patient brought to the operating room placed in the operating table in supine position. After satisfactory induction of general anesthesia the chest abdomen and legs were prepped and draped in sterile fashion. Greater saphenous vein was harvested from the left lower leg and prepared as an arterial graft. Heart was prepared for cardiopulmonary bypass with systemic heparinization and cannulation of the ascending aorta and right atrium. Cardiopulmonary bypass was begun and aorta was crossclamped and the heart arrested with cardioplegia solution injected into the aortic root. Heart was protected during the period of crossclamping with topical saline slush. Distal anastomoses were constructed as noted above and then the aorta clamp was removed with the resumption of cardiac activity. Proximal anastomosis was constructed between the inflow end of the saphenous vein graft in the ascending aorta. Patient was then weaned from cardiopulmonary bypass without difficulty and heparin effect reversed with protamine. Decannulation was carried out and the defects in the right atrium and ascending aorta closed with 3-0 Prolene. Operative field was inspected for hemostasis and this was considered adequate incision was closed with interrupted stainless steel wire and the sternum and 0 Monopril in the presternal fascia. Skin was closed with 3-0 subcuticular Monocryl. 2 chest tubes were left in the anterior mediastinum and brought out through separate stab incisions. Sterile dressings were applied and patient was returned to recovery in satisfactory condition. Surgeon / Physician: Carl Chapa Estimated blood loss: other (Unable to determine because of cardiopulmonary bypass) Condition: stable Disposition: ICU Results - Labs CBC & BMP: 06/25/16 09:46 06/24/16 03:10 Discharge Plan - Discharge Medications No Action No Known Home Medications [No Known Home Medications] - Follow Up or Referral - Forms/Instructions Instructions: Myocardial Infarction (GEN), Coronary Artery Disease (GEN), Coronary Artery Bypass Graft, Slat Basket Maker (GEN)
[2016-06-25] MEDS ORDERED: LACTATED RINGERS 1,000 ML IV ONE ×3 (11:00→15:00)
[2016-06-25 11:01] LABS: Basophils # 0.1 10*3/uL (0.0-0.2); Basophils % 0.5 % (0.0-0.8); Eosinophils # 0.1 10*3/uL (0.0-0.87); Eosinophils % 0.5 % (0.00-10.9); Hematocrit 36.7 VOL% (42.0-52.0); Hemoglobin 13.2 GM/DL (14.0-18.0); Immature Granulocytes % 0.9 %; Immature Granulocytes Absolute 0.09 #; Lymphocytes # 0.8 10*3/uL (1.4-4.0); Lymphocytes % 7.8 % (21.2-54.2); Mean Corpuscular Hemoglobin 32 PG (27-34); Mean Corpuscular Volume 88.4 FL (87-102); Mean Platelet Volume 10.4 FL (9.6-12.0); Monocytes # 0.5 10*3/uL (0.11-0.8); Monocytes % 4.8 % (1.7-12.7); Neutrophils # 8.9 10*3/uL (1.4-7.4); Neutrophils % 85.5 % (38.7-73.9); Platelet Count 210 T/CUMM (130-400); Red Blood Count 4.15 MC/CUMM (3.8-5.5); Red Cell Distribution Width 11.7 % (9.3-17.3); White Blood Count 10.4 T/CUMM (4-12)
[2016-06-25] MEDS ORDERED: HEPARIN/NACL 0.9% 2 UNITS/ML 500 ML IV ONE (11:04)
[2016-06-25 11:06] LABS: ABG Base Excess -1.6 MMOL/L (-2.5-2.5); ABG HCO3 23.5 MMOL/L (20-26); ABG Oxygen Saturation 97.1 % (95-100); ABG PCO2 41.2 MM HG (35-48); ABG PH 7.374 (7.35-7.45); ABG PO2 100.2 MM HG (80-95); ABG TCO2 24.8 MMOL/L (23-27); Glucose Heart Surgery 281 MG/DL (74-106); Hemoglobin Heart Surgery 13.8 G/DL (14.0-18.0); Potassium Heart/CVR 4.7 MMOL/L (3.5-5.1)
[2016-06-25 11:13] LABS: INR 1.2; PT Patient Result 12.5 SECS; Partial Thromboplastin Time 32.2 SECS (0-40)
[2016-06-25] MEDS: INSULIN REGULAR DRIP 100 ML IV SCH ×2 (11:33→22:01)
[2016-06-25 11:45] LABS: Albumin 3.1 G/DL (3.4-5.0); Bilirubin,Total 1.1 MG/DL (0.2-1.0); Calcium 8.2 MG/DL (8.5-10.1); Magnesium 2.2 MG/DL (1.8-2.4); Osmolality,Calculated 278.2 MOS/KG (273-304); Total Protein 5.5 G/DL (6.4-8.3)
[2016-06-25 11:46] LABS: CKMB % 4.7 %
[2016-06-25] MEDS: ALBUMIN 5% 12.5 GM in PREMIX 1 EACH IV PRN ×4 (12:20→19:30)
[2016-06-25] MEDS ORDERED: ALBUMIN 5% 12.5 GM/250 ML VIAL IV ONE (12:22)
[2016-06-25] MEDS: KETOROLAC 30 MG/1 ML VIAL IV SCH ×3 (12:33→23:57)
--- NOTE | 2016-06-25 13:10 | XRay Report ---
XR chest 1V portable Indication: Catheter placement, surgery Comparison: 24 June 2016 Findings: The heart and mediastinum are stable in size and configuration post cardiac surgery. Lines and tubes appear in good position. The pulmonary vascularity is normal in caliber. No lung infiltrates, effusions, pneumothorax or other abnormality is demonstrated. Impression: Expected appearance of the chest post cardiac surgery. PROCEDURE INTERPRETED AT [facility] DEPARTMENT OF RADIOLOGY Final Report Signed by: Dr. Forrest Baum
[2016-06-25 13:28] LABS: ABG Base Excess -3.1 MMOL/L (-2.5-2.5); ABG HCO3 21.8 MMOL/L (20-26); ABG Oxygen Saturation 96.1 % (95-100); ABG PCO2 46.8 MM HG (35-48); ABG PH 7.309 (7.35-7.45); ABG PO2 91.4 MM HG (80-95); ABG TCO2 20.8 MMOL/L (23-27); Glucose Heart Surgery 246 MG/DL (74-106); Hematocrit Heart Surgery 39.6 PERCENT (42-52); Hemoglobin Heart Surgery 12.9 G/DL (14.0-18.0); Potassium Heart/CVR 3.6 MMOL/L (3.5-5.1)
[2016-06-25] MEDS: POTASSIUM CHLORIDE RIDER 20 MEQ in PREMIX 1 EACH IV PRN ×3 (13:55→22:12)
[2016-06-25] MEDS: POTASSIUM CHLORIDE RIDER 10 MEQ in PREMIX 1 EACH IV PRN ×2 (14:34→18:30)
[2016-06-25 15:24] LABS: ABG Base Excess -3.8 MMOL/L (-2.5-2.5); ABG HCO3 21.2 MMOL/L (20-26); ABG Oxygen Saturation 97.2 % (95-100); ABG PCO2 42.9 MM HG (35-48); ABG PH 7.322 (7.35-7.45); ABG TCO2 19.8 MMOL/L (23-27); Glucose Heart Surgery 200 MG/DL (74-106); Potassium Heart/CVR 3.8 MMOL/L (3.5-5.1)
--- NOTE | 2016-06-25 15:56 | Event Note ---
Patient is post CABG she today. He is really doing well. He of course is intubated with chest tubes and sedated the moment. His rhythm though is stable in sinus. His cardiac output is excellent and his venous O2 saturations are good. He is not requiring any pressors at the time. We'll continue to monitor post surgery and will get his risk factor modification prior to discharge.
[2016-06-25 17:39] LABS: ABG Base Excess -5.6 MMOL/L (-2.5-2.5); ABG HCO3 19.8 MMOL/L (20-26); ABG PCO2 39.5 MM HG (35-48); ABG PH 7.316 (7.35-7.45); ABG TCO2 17.9 MMOL/L (23-27); Glucose Heart Surgery 204 MG/DL (74-106); Hematocrit Heart Surgery 38.8 PERCENT (42-52); Hemoglobin Heart Surgery 12.6 G/DL (14.0-18.0); Potassium Heart/CVR 3.7 MMOL/L (3.5-5.1)
[2016-06-25] MEDS: CEFUROXIME INJ 1,500 MG in SODIUM CHLORIDE 0.9% 100 ML IV SCH (17:53)
[2016-06-25 18:05] LABS: CKMB % 3.7 %
[2016-06-25 18:09] LABS: Troponin I Only 3.1 NG/ML (0.00-0.045)
[2016-06-25] MEDS ORDERED: FUROSEMIDE 40 MG/4 ML VIAL IV ONE (18:53)
[2016-06-25 19:13] LABS: ABG Base Excess -4.5 MMOL/L (-2.5-2.5); ABG HCO3 20.7 MMOL/L (20-26); ABG Oxygen Saturation 98.6 % (95-100); ABG PCO2 34.7 MM HG (35-48); ABG TCO2 17.8 MMOL/L (23-27); Glucose Heart Surgery 195 MG/DL (74-106); Hematocrit Heart Surgery 37.1 PERCENT (42-52); Potassium Heart/CVR 4.6 MMOL/L (3.5-5.1)
[2016-06-25 20:33] LABS: ABG Base Excess -2.3 MMOL/L (-2.5-2.5); ABG HCO3 19.9 MMOL/L (20-26); ABG PCO2 27.3 MM HG (35-48); ABG PH 7.481 (7.35-7.45); ABG PO2 126.9 MM HG (80-95); ABG TCO2 20.8 MMOL/L (23-27); Glucose Heart Surgery 163 MG/DL (74-106); Hemoglobin Heart Surgery 12.3 G/DL (14.0-18.0); Potassium Heart/CVR 4.2 MMOL/L (3.5-5.1)
[2016-06-25] MEDS: MORPHINE 2 MG/1 ML SYRINGE IV PRN (20:51)
[2016-06-25 21:36] LABS: ABG Base Excess -2.7 MMOL/L (-2.5-2.5); ABG HCO3 22.5 MMOL/L (20-26); ABG Oxygen Saturation 96.9 % (95-100); ABG PCO2 40.5 MM HG (35-48); ABG PH 7.362 (7.35-7.45); ABG PO2 98.9 MM HG (80-95); ABG TCO2 23.7 MMOL/L (23-27); Glucose Heart Surgery 147 MG/DL (74-106); Hemoglobin Heart Surgery 12.8 G/DL (14.0-18.0)
[2016-06-26] MEDS: MORPHINE 2 MG/1 ML SYRINGE IV PRN (02:24)
[2016-06-26 04:17] LABS: ABG Base Excess -1.5 MMOL/L (-2.5-2.5); ABG HCO3 23.1 MMOL/L (20-26); ABG Oxygen Saturation 96.6 % (95-100); ABG PCO2 38.2 MM HG (35-48); ABG PO2 87.9 MM HG (80-95); ABG TCO2 20.5 MMOL/L (23-27); Glucose Heart Surgery 126 MG/DL (74-106); Hematocrit Heart Surgery 37.1 PERCENT (42-52); Hemoglobin Heart Surgery 12.1 G/DL (14.0-18.0); Potassium Heart/CVR 4.3 MMOL/L (3.5-5.1)
[2016-06-26 04:20] LABS: Hematocrit 33.7 VOL% (42.0-52.0); Hemoglobin 11.9 GM/DL (14.0-18.0); Immature Granulocytes % 0.5 %; Immature Granulocytes Absolute 0.06 #; Lymphocytes # 0.5 10*3/uL (1.4-4.0); Lymphocytes % 3.9 % (21.2-54.2); Mean Corpuscular HGB Conc 35.3 GM/DL (32-36); Mean Corpuscular Hemoglobin 32 PG (27-34); Mean Corpuscular Volume 89.6 FL (87-102); Mean Platelet Volume 10.6 FL (9.6-12.0); Monocytes # 0.7 10*3/uL (0.11-0.8); Monocytes % 5.7 % (1.7-12.7); Neutrophils # 11.5 10*3/uL (1.4-7.4); Neutrophils % 89.9 % (38.7-73.9); Platelet Count 186 T/CUMM (130-400); Red Blood Count 3.76 MC/CUMM (3.8-5.5); Red Cell Distribution Width 11.9 % (9.3-17.3); White Blood Count 12.8 T/CUMM (4-12)
[2016-06-26 04:56] LABS: Albumin 3.6 G/DL (3.4-5.0); Bilirubin,Direct 0.1 MG/DL (0.0-0.20); Bilirubin,Total 0.6 MG/DL (0.2-1.0); Magnesium 1.8 MG/DL (1.8-2.4); Osmolality,Calculated 277.7 MOS/KG (273-304); Potassium 4.5 MMOL/L (3.5-5.1); Total Protein 5.8 G/DL (6.4-8.3)
[2016-06-26 05:24] LABS: CKMB % 2.4 %
[2016-06-26 05:36] LABS: Troponin I Only 3.74 NG/ML (0.00-0.045)
[2016-06-26 05:59] LABS: Lymphocytes 3 % (20-55); Platelet Estimate Normal; Segmented Neutrophils 93 % (50-85); Total Cells Counted 100
[2016-06-26] MEDS: KETOROLAC 30 MG/1 ML VIAL IV SCH ×5 (06:22→20:55)
[2016-06-26] MEDS: CEFUROXIME INJ 1,500 MG in SODIUM CHLORIDE 0.9% 100 ML IV SCH (06:22)
--- NOTE | 2016-06-26 07:42 | EKG Report ---
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
--- NOTE | 2016-06-26 08:00 | Cardiothoracic Progress Note ---
Cardiothoracic Subjective Interval history: Patient is awake alert and extubated. Vital signs have been stable through the night and he was extubated yesterday evening. He remains in sinus rhythm with a cardiac output greater than 7 L/min. Blood gases are good postextubation and urine output has been satisfactory with creatinine within the normal range. Chest tube drainage is minimal and I am going to discontinue his chest tubes I believe that he can be transferred to telemetry later this morning. Exam (Progress Note) - Constitutional Vitals: Period Temp Pulse Resp BP Sys/Nunez Pulse Ox Last 24 Hr 96.7 F-98.7 F 85-105 9-17 90-150/47-75 96-100 Result/EKG - Labs CBC & BMP: 06/26/16 04:01 06/26/16 04:01 Labs: Laboratory Results - last 24 hr 06/24/16 06/25/16 06/25/16 03:10 07:02 08:50 WBC RBC Hgb Hct MCV MCH MCHC RDW Plt Count MPV Neut % (Auto) Lymph % (Auto) [place] % (Auto) Eos % (Auto) Baso % (Auto) Neut # (Auto) Lymph # (Auto) [place] # (Auto) Eos # (Auto) Baso # (Auto) Total Counted Immature Gran % Nucleated RBC % Immature Gran # Segmented Neutrophils Lymphocytes Monocytes Nucleated RBCs # Platelet Estimate INR PT Patient/Control Mix Circ Anticoag PTT Patient Temperature 36 ABG pH ABG pH at Pt Temp 7.409 ABG pCO2 ABG pCO2 at Pt Temp 39.3 ABG pO2 ABG pO2 at Pt Temp 43.1 ABG HCO3 ABG Total CO2 ABG O2 Saturation ABG Base Excess ABG Sodium 127 L VBG pH 7.394 VBG pCO2 41.1 VBG pO2 46.2 H VBG HCO3 24.5 VBG Total CO2 25.8 VBG O2 Saturation 79.7 VBG Base Excess -0.3 L Hemoglobin 10.8 L D Hematocrit 32.0 L Potassium 4.8 Glucose 268 H Ionized Calcium FiO2 80.00 Sodium Chloride Carbon Dioxide Anion Gap BUN Creatinine GFR Calculation BUN/Creatinine Ratio Calculated Osmolality Calcium Venous Ioniz Calcium 0.85 Magnesium Total Bilirubin Direct Bilirubin AST ALT Alkaline Phosphatase Total Creatine Kinase CK-MB (CK-2) CK and CKMB Interp Troponin I Total Protein Albumin Globulin Albumin/Globulin Ratio Urine Color Yellow Urine Appearance Clear Urine pH 5.0 Ur Specific [place] 1.012 Urine Protein Negative Urine Glucose (UA) Negative Urine Ketones 5 Urine Blood Negative Urine Nitrate Negative Urine Bilirubin Negative Urine Urobilinogen < 2.0 H Urine Leukocytes Negative Urine WBC <1 Ur Culture Indicated? Not indicated Blood Type O POSITIVE Antibody Screen Negative Crossmatch See Detail 06/25/16 06/25/16 06/25/16 09:46 09:46 10:24 WBC 10.4 RBC 4.15 Hgb 13.2 L Hct 36.7 L MCV 88.4 MCH 32 MCHC 36.0 RDW 11.7 Plt Count 73 L D 210 D MPV 10.4 Neut % (Auto) 85.5 H Lymph % (Auto) 7.8 L [place] % (Auto) 4.8 Eos % (Auto) 0.5 Baso % (Auto) 0.5 Neut # (Auto) 8.9 H Lymph # (Auto) 0.8 L [place] # (Auto) 0.5 Eos # (Auto) 0.1 Baso # (Auto) 0.1 Total Counted Immature Gran % 0.9 Nucleated RBC % 0.0 Immature Gran # 0.09 Segmented Neutrophils Lymphocytes Monocytes Nucleated RBCs # 0.00 Platelet Estimate INR PT Patient/Control Mix Circ Anticoag PTT Patient Temperature 37 ABG pH 7.402 ABG pH at Pt Temp 7.402 ABG pCO2 36.8 ABG pCO2 at Pt Temp 36.8 ABG pO2 411.9 H ABG pO2 at Pt Temp 411.9 ABG HCO3 22.4 ABG Total CO2 23.5 ABG O2 Saturation 98.9 ABG Base Excess -2.0 ABG Sodium 125 L VBG pH VBG pCO2 VBG pO2 VBG HCO3 VBG Total CO2 VBG O2 Saturation VBG Base Excess Hemoglobin 11.9 L Hematocrit 35.0 L Potassium 5.5 H Glucose 291 H Ionized Calcium 1.14 L FiO2 Sodium Chloride Carbon Dioxide Anion Gap BUN Creatinine GFR Calculation BUN/Creatinine Ratio Calculated Osmolality Calcium Venous Ioniz Calcium Magnesium Total Bilirubin Direct Bilirubin AST ALT Alkaline Phosphatase Total Creatine Kinase CK-MB (CK-2) CK and CKMB Interp Troponin I Total Protein Albumin Globulin Albumin/Globulin Ratio Urine Color Urine Appearance Urine pH Ur Specific [place] Urine Protein Urine Glucose (UA) Urine Ketones Urine Blood Urine Nitrate Urine Bilirubin Urine Urobilinogen Urine Leukocytes Urine WBC Ur Culture Indicated? Blood Type Antibody Screen Crossmatch 06/25/16 06/25/16 06/25/16 10:24 10:24 10:24 WBC RBC Hgb Hct MCV MCH MCHC RDW Plt Count MPV Neut % (Auto) Lymph % (Auto) [place] % (Auto) Eos % (Auto) Baso % (Auto) Neut # (Auto) Lymph # (Auto) [place] # (Auto) Eos # (Auto) Baso # (Auto) Total Counted Immature Gran % Nucleated RBC % Immature Gran # Segmented Neutrophils Lymphocytes Monocytes Nucleated RBCs # Platelet Estimate INR 1.2 PT Patient/Control Mix 12.5 Circ Anticoag PTT 32.2 Patient Temperature ABG pH 7.374 ABG pH at Pt Temp ABG pCO2 41.2 ABG pCO2 at Pt Temp ABG pO2 100.2 H ABG pO2 at Pt Temp ABG HCO3 23.5 ABG Total CO2 24.8 ABG O2 Saturation 97.1 ABG Base Excess -1.6 ABG Sodium VBG pH VBG pCO2 VBG pO2 VBG HCO3 VBG Total CO2 VBG O2 Saturation VBG Base Excess Hemoglobin 13.8 L Hematocrit 41.0 L Potassium 5.0 4.7 Glucose 287 H 281 H Ionized Calcium FiO2 Sodium 134 L Chloride 100 Carbon Dioxide 24 Anion Gap 15.0 BUN 15 Creatinine 1.20 GFR Calculation 92 BUN/Creatinine Ratio 12.00 Calculated Osmolality 278.2 Calcium 8.2 L Venous Ioniz Calcium Magnesium 2.2 Total Bilirubin 1.10 H Direct Bilirubin AST 25 ALT 23 Alkaline Phosphatase 59 Total Creatine Kinase CK-MB (CK-2) CK and CKMB Interp Troponin I Total Protein 5.5 L Albumin 3.1 L Globulin 2.4 Albumin/Globulin Ratio 1.2 Urine Color Urine Appearance Urine pH Ur Specific [place] Urine Protein Urine Glucose (UA) Urine Ketones Urine Blood Urine Nitrate Urine Bilirubin Urine Urobilinogen Urine Leukocytes Urine WBC Ur Culture Indicated? Blood Type Antibody Screen Crossmatch 06/25/16 06/25/16 06/25/16 10:30 13:25 15:15 WBC RBC Hgb Hct MCV MCH MCHC RDW Plt Count MPV Neut % (Auto) Lymph % (Auto) [place] % (Auto) Eos % (Auto) Baso % (Auto) Neut # (Auto) Lymph # (Auto) [place] # (Auto) Eos # (Auto) Baso # (Auto) Total Counted Immature Gran % Nucleated RBC % Immature Gran # Segmented Neutrophils Lymphocytes Monocytes Nucleated RBCs # Platelet Estimate INR PT Patient/Control Mix Circ Anticoag PTT Patient Temperature ABG pH 7.309 L 7.322 L ABG pH at Pt Temp ABG pCO2 46.8 42.9 ABG pCO2 at Pt Temp ABG pO2 91.4 103.0 H ABG pO2 at Pt Temp ABG HCO3 21.8 21.2 ABG Total CO2 20.8 L 19.8 L ABG O2 Saturation 96.1 97.2 ABG Base Excess -3.1 L -3.8 L ABG Sodium VBG pH VBG pCO2 VBG pO2 VBG HCO3 VBG Total CO2 VBG O2 Saturation VBG Base Excess Hemoglobin 12.9 L 12.0 L Hematocrit 39.6 L 37.0 L Potassium 3.6 3.8 Glucose 246 H 200 H Ionized Calcium FiO2 Sodium Chloride Carbon Dioxide Anion Gap BUN Creatinine GFR Calculation BUN/Creatinine Ratio Calculated Osmolality Calcium Venous Ioniz Calcium Magnesium Total Bilirubin Direct Bilirubin AST ALT Alkaline Phosphatase Total Creatine Kinase 133 D CK-MB (CK-2) 6.3 H D CK and CKMB Interp 4.7 Troponin I 2.000 H D Total Protein Albumin Globulin Albumin/Globulin Ratio Urine Color Urine Appearance Urine pH Ur Specific [place] Urine Protein Urine Glucose (UA) Urine Ketones Urine Blood Urine Nitrate Urine Bilirubin Urine Urobilinogen Urine Leukocytes Urine WBC Ur Culture Indicated? Blood Type Antibody Screen Crossmatch 06/25/16 06/25/16 06/25/16 17:25 17:25 18:59 WBC RBC Hgb Hct MCV MCH MCHC RDW Plt Count MPV Neut % (Auto) Lymph % (Auto) [place] % (Auto) Eos % (Auto) Baso % (Auto) Neut # (Auto) Lymph # (Auto) [place] # (Auto) Eos # (Auto) Baso # (Auto) Total Counted Immature Gran % Nucleated RBC % Immature Gran # Segmented Neutrophils Lymphocytes Monocytes Nucleated RBCs # Platelet Estimate INR PT Patient/Control Mix Circ Anticoag PTT Patient Temperature ABG pH 7.316 L 7.370 ABG pH at Pt Temp ABG pCO2 39.5 34.7 L ABG pCO2 at Pt Temp ABG pO2 101.0 H 115.0 H ABG pO2 at Pt Temp ABG HCO3 19.8 L 20.7 ABG Total CO2 17.9 L 17.8 L ABG O2 Saturation 97.0 98.6 ABG Base Excess -5.6 L -4.5 L ABG Sodium VBG pH VBG pCO2 VBG pO2 VBG HCO3 VBG Total CO2 VBG O2 Saturation VBG Base Excess Hemoglobin 12.6 L 12.0 L Hematocrit 38.8 L 37.1 L Potassium 3.7 4.6 Glucose 204 H 195 H Ionized Calcium FiO2 Sodium Chloride Carbon Dioxide Anion Gap BUN Creatinine GFR Calculation BUN/Creatinine Ratio Calculated Osmolality Calcium Venous Ioniz Calcium Magnesium Total Bilirubin Direct Bilirubin AST ALT Alkaline Phosphatase Total Creatine Kinase 209 D CK-MB (CK-2) 7.7 H CK and CKMB Interp 3.7 Troponin I 3.100 H D Total Protein Albumin Globulin Albumin/Globulin Ratio Urine Color Urine Appearance Urine pH Ur Specific [place] Urine Protein Urine Glucose (UA) Urine Ketones Urine Blood Urine Nitrate Urine Bilirubin Urine Urobilinogen Urine Leukocytes Urine WBC Ur Culture Indicated? Blood Type Antibody Screen Crossmatch 06/25/16 06/25/16 06/26/16 20:33 21:30 04:01 WBC RBC Hgb Hct MCV MCH MCHC RDW Plt Count MPV Neut % (Auto) Lymph % (Auto) [place] % (Auto) Eos % (Auto) Baso % (Auto) Neut # (Auto) Lymph # (Auto) [place] # (Auto) Eos # (Auto) Baso # (Auto) Total Counted Immature Gran % Nucleated RBC % Immature Gran # Segmented Neutrophils Lymphocytes Monocytes Nucleated RBCs # Platelet Estimate INR PT Patient/Control Mix Circ Anticoag PTT Patient Temperature ABG pH 7.481 H 7.362 ABG pH at Pt Temp ABG pCO2 27.3 L 40.5 ABG pCO2 at Pt Temp ABG pO2 126.9 H 98.9 H ABG pO2 at Pt Temp ABG HCO3 19.9 L 22.5 ABG Total CO2 20.8 L 23.7 ABG O2 Saturation 98.0 96.9 ABG Base Excess -2.3 -2.7 L ABG Sodium VBG pH VBG pCO2 VBG pO2 VBG HCO3 VBG Total CO2 VBG O2 Saturation VBG Base Excess Hemoglobin 12.3 L 12.8 L Hematocrit 36.0 L 38.0 L Potassium 4.2 4.0 Glucose 163 H 147 H Ionized Calcium FiO2 Sodium Chloride Carbon Dioxide Anion Gap BUN Creatinine GFR Calculation BUN/Creatinine Ratio Calculated Osmolality Calcium Venous Ioniz Calcium Magnesium Total Bilirubin Direct Bilirubin AST ALT Alkaline Phosphatase Total Creatine Kinase 305 D CK-MB (CK-2) 7.2 H CK and CKMB Interp 2.4 Troponin I 3.740 H D Total Protein Albumin Globulin Albumin/Globulin Ratio Urine Color Urine Appearance Urine pH Ur Specific [place] Urine Protein Urine Glucose (UA) Urine Ketones Urine Blood Urine Nitrate Urine Bilirubin Urine Urobilinogen Urine Leukocytes Urine WBC Ur Culture Indicated? Blood Type Antibody Screen Crossmatch 06/26/16 06/26/16 06/26/16 04:01 04:01 04:10 WBC 12.8 H RBC 3.76 L Hgb 11.9 L Hct 33.7 L MCV 89.6 MCH 32 MCHC 35.3 RDW 11.9 Plt Count 186 MPV 10.6 Neut % (Auto) 89.9 H Lymph % (Auto) 3.9 L [place] % (Auto) 5.7 Eos % (Auto) 0.0 Baso % (Auto) 0.0 Neut # (Auto) 11.5 H Lymph # (Auto) 0.5 L [place] # (Auto) 0.7 Eos # (Auto) 0.0 Baso # (Auto) 0.0 Total Counted 100 Immature Gran % 0.5 Nucleated RBC % 0.0 Immature Gran # 0.06 Segmented Neutrophils 93 H Lymphocytes 3 L Monocytes 4 Nucleated RBCs # 0.00 Platelet Estimate Normal INR PT Patient/Control Mix Circ Anticoag PTT Patient Temperature ABG pH 7.390 ABG pH at Pt Temp ABG pCO2 38.2 ABG pCO2 at Pt Temp ABG pO2 87.9 ABG pO2 at Pt Temp ABG HCO3 23.1 ABG Total CO2 20.5 L ABG O2 Saturation 96.6 ABG Base Excess -1.5 ABG Sodium VBG pH VBG pCO2 VBG pO2 VBG HCO3 VBG Total CO2 VBG O2 Saturation VBG Base Excess Hemoglobin 12.1 L Hematocrit 37.1 L Potassium 4.5 4.3 Glucose 126 H 126 H Ionized Calcium FiO2 Sodium 138 Chloride 103 Carbon Dioxide 24 Anion Gap 15.5 H BUN 15 Creatinine 0.80 GFR Calculation 137 BUN/Creatinine Ratio 18.00 Calculated Osmolality 277.7 Calcium 8.0 L Venous Ioniz Calcium Magnesium 1.8 Total Bilirubin 0.60 Direct Bilirubin 0.10 AST 29 ALT 24 Alkaline Phosphatase 47 Total Creatine Kinase CK-MB (CK-2) CK and CKMB Interp Troponin I Total Protein 5.8 L Albumin 3.6 Globulin 2.2 L Albumin/Globulin Ratio 1.6 Urine Color Urine Appearance Urine pH Ur Specific [place] Urine Protein Urine Glucose (UA) Urine Ketones Urine Blood Urine Nitrate Urine Bilirubin Urine Urobilinogen Urine Leukocytes Urine WBC Ur Culture Indicated? Blood Type Antibody Screen Crossmatch Quality Measures - VTE Contraindication to Pharmacological VTE Prophylaxis: High Risk of Bleeding Specialty Discharge - Follow Up or Referrals
[2016-06-26] MEDS ORDERED: DEXTROSE 50% 25 GM/50 ML VIAL IV PRN (08:03)
[2016-06-26] MEDS ORDERED: ALUMINUM/MAGNES/SIMETH MAX STR 30 ML UDCUP PO PRN (08:03)
[2016-06-26] MEDS ORDERED: GLUCAGON 1 MG VIAL IM PRN (08:03)
[2016-06-26] MEDS ORDERED: MAGNESIUM SULF RIDER 4 GM in PREMIX 1 EACH IV PRN (08:03)
[2016-06-26] MEDS ORDERED: MAGNESIUM SULF RIDER 2 GM in PREMIX 1 EACH IV PRN (08:03)
[2016-06-26] MEDS ORDERED: ONDANSETRON 4 MG/2 ML VIAL IV PRN (08:03)
[2016-06-26] MEDS ORDERED: ACETAMINOPHEN 325 MG TABLET PO PRN (08:03)
[2016-06-26] MEDS ORDERED: MAGNESIUM HYDROXIDE SUSP 30 ML UDCUP PO PRN (08:03)
[2016-06-26] MEDS ORDERED: oxyCODONE/ACETAMINOPHEN 5-325 MG TABLET PO PRN (08:03)
[2016-06-26] MEDS ORDERED: MIDAZOLAM 2 MG/2 ML VIAL IV ONE (08:10)
--- NOTE | 2016-06-26 09:17 | XRay Report ---
History: Postop thoracotomy. Chest tube removal. Evaluate for pneumothorax Date: 06/26/2016 Study: Chest x-ray AP portable Comparison exam: Chest x-ray 06/25/2016 The endotracheal tube, nasogastric tube, and chest drainage tubes have been removed. The right subclavian [place] catheter and right IJ central line are stable in position. There is no pneumothorax. There is stable cardiomegaly. The mediastinal contours are stable in this patient status post recent median sternotomy. The pulmonary vasculature is not engorged. There is mild strandy atelectatic changes in the lower lungs, grossly similar. There is no increasing pleural effusion. Osseous structures are similar. Impression: No evidence of a pneumothorax following chest tube removal. Continued bibasilar atelectasis. Interval extubation and nasogastric tube removal PROCEDURE INTERPRETED AT [facility] DEPARTMENT OF RADIOLOGY Final Report Signed by: Dr. Sonali Carter
[2016-06-26] MEDS: FERROUS SULFATE 325 MG TABLET PO SCH (09:18)
[2016-06-26] MEDS: PANTOPRAZOLE 40 MG TABLET PO SCH (09:18)
[2016-06-26] MEDS: DOCUSATE SODIUM 100 MG CAPSULE PO SCH (09:18)
[2016-06-26] MEDS: ASPIRIN EC 325 MG TABLET PO SCH (09:18)
[2016-06-26] MEDS: CHLORHEXIDINE 0.12% ORAL RINSE 60 ML BOTTLE SWISH/SPIT SCH ×3 (09:18→20:57)
[2016-06-26] MEDS: SODIUM CHLOR 0.45% KCL 20 MEQ 20 MEQ/1,000 ML BAG IV SCH (10:28)
[2016-06-26] MEDS: METOPROLOL TARTRATE 25 MG TABLET PO SCH ×2 (10:29→20:56)
[2016-06-26] MEDS: SODIUM CHLORIDE 0.45% 1,000 ML IV SCH ×2 (10:30)
--- NOTE | 2016-06-26 11:24 | Cardiology Progress Note ---
Assessment and Plan (1) NSTEMI (non-ST elevated myocardial infarction) Status: Resolved Assessment and plan: 1. 56-year-old status post non-STEMI with three-vessel CAD postoperative day one from CABG (KELLY to LAD, and vein to ramus, with diseased nondominant [place] RCA) doing well clinically conversing easily without shortness of breath with normal cardiac output 2. Hemodynamically stable 3. No dysrhythmia 4. Mild ischemic cardiomyopathy with EF 45% catheterization 5. Treated with high-intensity statin, aspirin, and low-dose beta karen Current Visit: Yes (2) Dyslipidemia Status: Chronic Current Visit: Yes (3) Sleep apnea Status: Chronic Current Visit: Yes Cardiology - PN: Subj Interval history: Beck is wide-awake conversing with family. He has no shortness of breath. He has usual sternal soreness. He has had no dysrhythmia. His cardiac output is good. Weight is urine output. His hematocrit is stable. Exam (Progress Note) - Constitutional Vitals: Period Temp Pulse Resp BP Sys/Nunez Pulse Ox Last 24 Hr 96.7 F-98.7 F 85-105 9-17 90-150/47-87 96-100 General appearance: normal weight, no acute distress - Head Head exam: Present: normal inspection, normocephalic, atraumatic - Neck Neck exam: Present: normal inspection - Respiratory Respiratory exam: Present: clear to auscultation bilaterally. Absent: rales, stridor - Cardiovascular Cardiovascular exam: Present: regular rate and rhythm - GI/Abdominal GI/Abdominal exam: Present: soft. Absent: tenderness - Extremities Exam Extremities exam: Present: edema (trace edema vein graft harvest site) Result/EKG - Labs CBC & BMP: 06/26/16 04:01 06/26/16 04:01 Labs: Laboratory Results - last 24 hr 06/24/16 06/25/16 06/25/16 03:10 10:24 10:30 WBC RBC Hgb Hct MCV MCH MCHC RDW Plt Count MPV Neut % (Auto) Lymph % (Auto) [place] % (Auto) Eos % (Auto) Baso % (Auto) Neut # (Auto) Lymph # (Auto) [place] # (Auto) Eos # (Auto) Baso # (Auto) Total Counted Immature Gran % Nucleated RBC % Immature Gran # Segmented Neutrophils Lymphocytes Monocytes Nucleated RBCs # Platelet Estimate ABG pH ABG pCO2 ABG pO2 ABG HCO3 ABG Total CO2 ABG O2 Saturation ABG Base Excess Hemoglobin Hematocrit Sodium 134 L Potassium 5.0 Chloride 100 Carbon Dioxide 24 Anion Gap 15.0 BUN 15 Creatinine 1.20 GFR Calculation 92 BUN/Creatinine Ratio 12.00 Glucose 287 H Calculated Osmolality 278.2 Calcium 8.2 L Magnesium 2.2 Total Bilirubin 1.10 H Direct Bilirubin AST 25 ALT 23 Alkaline Phosphatase 59 Total Creatine Kinase 133 D CK-MB (CK-2) 6.3 H D CK and CKMB Interp 4.7 Troponin I 2.000 H D Total Protein 5.5 L Albumin 3.1 L Globulin 2.4 Albumin/Globulin Ratio 1.2 Blood Type O POSITIVE Antibody Screen Negative Crossmatch See Detail 06/25/16 06/25/16 06/25/16 13:25 15:15 17:25 WBC RBC Hgb Hct MCV MCH MCHC RDW Plt Count MPV Neut % (Auto) Lymph % (Auto) [place] % (Auto) Eos % (Auto) Baso % (Auto) Neut # (Auto) Lymph # (Auto) [place] # (Auto) Eos # (Auto) Baso # (Auto) Total Counted Immature Gran % Nucleated RBC % Immature Gran # Segmented Neutrophils Lymphocytes Monocytes Nucleated RBCs # Platelet Estimate ABG pH 7.309 L 7.322 L ABG pCO2 46.8 42.9 ABG pO2 91.4 103.0 H ABG HCO3 21.8 21.2 ABG Total CO2 20.8 L 19.8 L ABG O2 Saturation 96.1 97.2 ABG Base Excess -3.1 L -3.8 L Hemoglobin 12.9 L 12.0 L Hematocrit 39.6 L 37.0 L Sodium Potassium 3.6 3.8 Chloride Carbon Dioxide Anion Gap BUN Creatinine GFR Calculation BUN/Creatinine Ratio Glucose 246 H 200 H Calculated Osmolality Calcium Magnesium Total Bilirubin Direct Bilirubin AST ALT Alkaline Phosphatase Total Creatine Kinase 209 D CK-MB (CK-2) 7.7 H CK and CKMB Interp 3.7 Troponin I 3.100 H D Total Protein Albumin Globulin Albumin/Globulin Ratio Blood Type Antibody Screen Crossmatch 06/25/16 06/25/16 06/25/16 17:25 18:59 20:33 WBC RBC Hgb Hct MCV MCH MCHC RDW Plt Count MPV Neut % (Auto) Lymph % (Auto) [place] % (Auto) Eos % (Auto) Baso % (Auto) Neut # (Auto) Lymph # (Auto) [place] # (Auto) Eos # (Auto) Baso # (Auto) Total Counted Immature Gran % Nucleated RBC % Immature Gran # Segmented Neutrophils Lymphocytes Monocytes Nucleated RBCs # Platelet Estimate ABG pH 7.316 L 7.370 7.481 H ABG pCO2 39.5 34.7 L 27.3 L ABG pO2 101.0 H 115.0 H 126.9 H ABG HCO3 19.8 L 20.7 19.9 L ABG Total CO2 17.9 L 17.8 L 20.8 L ABG O2 Saturation 97.0 98.6 98.0 ABG Base Excess -5.6 L -4.5 L -2.3 Hemoglobin 12.6 L 12.0 L 12.3 L Hematocrit 38.8 L 37.1 L 36.0 L Sodium Potassium 3.7 4.6 4.2 Chloride Carbon Dioxide Anion Gap BUN Creatinine GFR Calculation BUN/Creatinine Ratio Glucose 204 H 195 H 163 H Calculated Osmolality Calcium Magnesium Total Bilirubin Direct Bilirubin AST ALT Alkaline Phosphatase Total Creatine Kinase CK-MB (CK-2) CK and CKMB Interp Troponin I Total Protein Albumin Globulin Albumin/Globulin Ratio Blood Type Antibody Screen Crossmatch 06/25/16 06/26/16 06/26/16 21:30 04:01 04:01 WBC 12.8 H RBC 3.76 L Hgb 11.9 L Hct 33.7 L MCV 89.6 MCH 32 MCHC 35.3 RDW 11.9 Plt Count 186 MPV 10.6 Neut % (Auto) 89.9 H Lymph % (Auto) 3.9 L [place] % (Auto) 5.7 Eos % (Auto) 0.0 Baso % (Auto) 0.0 Neut # (Auto) 11.5 H Lymph # (Auto) 0.5 L [place] # (Auto) 0.7 Eos # (Auto) 0.0 Baso # (Auto) 0.0 Total Counted 100 Immature Gran % 0.5 Nucleated RBC % 0.0 Immature Gran # 0.06 Segmented Neutrophils 93 H Lymphocytes 3 L Monocytes 4 Nucleated RBCs # 0.00 Platelet Estimate Normal ABG pH 7.362 ABG pCO2 40.5 ABG pO2 98.9 H ABG HCO3 22.5 ABG Total CO2 23.7 ABG O2 Saturation 96.9 ABG Base Excess -2.7 L Hemoglobin 12.8 L Hematocrit 38.0 L Sodium Potassium 4.0 Chloride Carbon Dioxide Anion Gap BUN Creatinine GFR Calculation BUN/Creatinine Ratio Glucose 147 H Calculated Osmolality Calcium Magnesium Total Bilirubin Direct Bilirubin AST ALT Alkaline Phosphatase Total Creatine Kinase 305 D CK-MB (CK-2) 7.2 H CK and CKMB Interp 2.4 Troponin I 3.740 H D Total Protein Albumin Globulin Albumin/Globulin Ratio Blood Type Antibody Screen Crossmatch 06/26/16 06/26/16 04:01 04:10 WBC RBC Hgb Hct MCV MCH MCHC RDW Plt Count MPV Neut % (Auto) Lymph % (Auto) [place] % (Auto) Eos % (Auto) Baso % (Auto) Neut # (Auto) Lymph # (Auto) [place] # (Auto) Eos # (Auto) Baso # (Auto) Total Counted Immature Gran % Nucleated RBC % Immature Gran # Segmented Neutrophils Lymphocytes Monocytes Nucleated RBCs # Platelet Estimate ABG pH 7.390 ABG pCO2 38.2 ABG pO2 87.9 ABG HCO3 23.1 ABG Total CO2 20.5 L ABG O2 Saturation 96.6 ABG Base Excess -1.5 Hemoglobin 12.1 L Hematocrit 37.1 L Sodium 138 Potassium 4.5 4.3 Chloride 103 Carbon Dioxide 24 Anion Gap 15.5 H BUN 15 Creatinine 0.80 GFR Calculation 137 BUN/Creatinine Ratio 18.00 Glucose 126 H 126 H Calculated Osmolality 277.7 Calcium 8.0 L Magnesium 1.8 Total Bilirubin 0.60 Direct Bilirubin 0.10 AST 29 ALT 24 Alkaline Phosphatase 47 Total Creatine Kinase CK-MB (CK-2) CK and CKMB Interp Troponin I Total Protein 5.8 L Albumin 3.6 Globulin 2.2 L Albumin/Globulin Ratio 1.6 Blood Type Antibody Screen Crossmatch Quality Measures - VTE Contraindication to Pharmacological VTE Prophylaxis: High Risk of Bleeding Specialty Discharge - Follow Up or Referrals
[2016-06-26] MEDS: INSULIN REGULAR 100 UNIT/ML SUBCUT SCH ×3 (11:40→20:55)
[2016-06-26] MEDS ORDERED: INSULIN REGULAR 100 UNIT/ML SUBCUT SCH (14:00)
[2016-06-26] MEDS: ATORVASTATIN 40 MG TABLET PO SCH (20:56)
[2016-06-26] MEDS: ZALEPLON 5 MG CAPSULE PO PRN (20:57)
[2016-06-27] MEDS: INSULIN REGULAR 100 UNIT/ML SUBCUT SCH ×6 (00:27→21:19)
[2016-06-27] MEDS: KETOROLAC 30 MG/1 ML VIAL IV SCH ×4 (02:54→21:20)
[2016-06-27 04:46] LABS: Basophils % 0.2 % (0.0-0.8); Eosinophils % 0.2 % (0.00-10.9); Hematocrit 31.3 VOL% (42.0-52.0); Hemoglobin 10.8 GM/DL (14.0-18.0); Immature Granulocytes % 0.6 %; Immature Granulocytes Absolute 0.06 #; Lymphocytes # 1.5 10*3/uL (1.4-4.0); Lymphocytes % 13.5 % (21.2-54.2); Mean Corpuscular HGB Conc 34.5 GM/DL (32-36); Mean Corpuscular Hemoglobin 31 PG (27-34); Mean Corpuscular Volume 90.5 FL (87-102); Mean Platelet Volume 11.2 FL (9.6-12.0); Monocytes # 0.9 10*3/uL (0.11-0.8); Monocytes % 8.8 % (1.7-12.7); Neutrophils # 8.3 10*3/uL (1.4-7.4); Neutrophils % 76.7 % (38.7-73.9); Platelet Count 188 T/CUMM (130-400); Red Blood Count 3.46 MC/CUMM (3.8-5.5); Red Cell Distribution Width 11.9 % (9.3-17.3); White Blood Count 10.7 T/CUMM (4-12)
[2016-06-27 05:34] LABS: Alanine Aminotransferase 24 U/L (16-61); Albumin 3.1 G/DL (3.4-5.0); Alkaline Phosphatase 53 U/L (45-117); Aspartate Amino Transferase 15 U/L (0-37); Bilirubin,Indirect 0.6 MG/DL (0.0-1.0); Blood Urea Nitrogen 19 MG/DL (7-18); Calcium 7.9 MG/DL (8.5-10.1); Glucose 134 MG/DL (74-106); Magnesium 2.1 MG/DL (1.8-2.4); Osmolality,Calculated 282.4 MOS/KG (273-304); Potassium 4.1 MMOL/L (3.5-5.1); Sodium 140 MMOL/L (136-145); Total Protein 5.2 G/DL (6.4-8.3)
[2016-06-27] MEDS ORDERED: FUROSEMIDE 40 MG/4 ML VIAL IV ONE (06:00)
--- NOTE | 2016-06-27 08:18 | Cardiology Progress Note ---
Assessment and Plan (1) NSTEMI (non-ST elevated myocardial infarction) Status: Resolved Assessment and plan: 1. 56-year-old status post non-STEMI with three-vessel CAD postoperative day one from CABG (KELLY to LAD, and vein to ramus, with diseased nondominant [place] RCA) doing well clinically conversing easily without shortness of breath with normal cardiac output 2. Hemodynamically stable 3. No dysrhythmia 4. Mild ischemic cardiomyopathy with EF 45% catheterization 5. Treated with high-intensity statin, aspirin, and low-dose beta karen June 27 update: 1. POD #2 after CABG (KELLY to LAD, and vein to ramus) doing well other than sternal pain 2. Hemodynamically stable without dysrhythmia 3. Mild ischemic cardiomyopathy with EF 45% 4. Continue statin, aspirin, low-dose beta karen. Current Visit: Yes (2) Dyslipidemia Status: Chronic Current Visit: Yes (3) Sleep apnea Status: Chronic Current Visit: Yes Cardiology - PN: Subj Interval history: Mr. Kemp only problem is been his sternal pain. He is not short of breath is not having nausea or vomiting. He is been normal sinus rhythm without significant dysrhythmia. Exam (Progress Note) - Constitutional Vitals: Period Temp Pulse Resp BP Sys/Nunez Pulse Ox Last 24 Hr 96.9 F-98.5 F 86-96 14-20 103-125/48-87 96-100 General appearance: normal weight, no acute distress - Head Head exam: Present: normal inspection, normocephalic, atraumatic - Neck Neck exam: Present: normal inspection - Respiratory Respiratory exam: Absent: rhonchi, wheezes - Cardiovascular Cardiovascular exam: Present: regular rate and rhythm. Absent: diastolic murmur , rubs - GI/Abdominal GI/Abdominal exam: Present: soft. Absent: tenderness - Extremities Exam Extremities exam: Present: other (bandages vein graft harvest site). Absent: edema Result/EKG - Labs CBC & BMP: 06/27/16 04:14 06/27/16 04:14 Labs: Laboratory Results - last 24 hr 06/24/16 06/25/16 06/25/16 03:10 11:32 12:16 WBC RBC Hgb Hct MCV MCH MCHC RDW Plt Count MPV Neut % (Auto) Lymph % (Auto) [place] % (Auto) Eos % (Auto) Baso % (Auto) Neut # (Auto) Lymph # (Auto) [place] # (Auto) Eos # (Auto) Baso # (Auto) Immature Gran % Nucleated RBC % Immature Gran # Nucleated RBCs # Sodium Potassium Chloride Carbon Dioxide Anion Gap BUN Creatinine GFR Calculation BUN/Creatinine Ratio Glucose POC Glucose 316 H 277 H Calculated Osmolality Calcium Magnesium Total Bilirubin Direct Bilirubin Indirect Bilirubin AST ALT Alkaline Phosphatase Total Creatine Kinase CK-MB (CK-2) Troponin I Total Protein Albumin Globulin Albumin/Globulin Ratio Blood Type O POSITIVE Antibody Screen Negative Crossmatch See Detail 06/25/16 06/25/16 06/25/16 13:05 14:06 15:14 WBC RBC Hgb Hct MCV MCH MCHC RDW Plt Count MPV Neut % (Auto) Lymph % (Auto) [place] % (Auto) Eos % (Auto) Baso % (Auto) Neut # (Auto) Lymph # (Auto) [place] # (Auto) Eos # (Auto) Baso # (Auto) Immature Gran % Nucleated RBC % Immature Gran # Nucleated RBCs # Sodium Potassium Chloride Carbon Dioxide Anion Gap BUN Creatinine GFR Calculation BUN/Creatinine Ratio Glucose POC Glucose 253 H 229 H 227 H Calculated Osmolality Calcium Magnesium Total Bilirubin Direct Bilirubin Indirect Bilirubin AST ALT Alkaline Phosphatase Total Creatine Kinase CK-MB (CK-2) Troponin I Total Protein Albumin Globulin Albumin/Globulin Ratio Blood Type Antibody Screen Crossmatch 06/25/16 06/25/16 06/26/16 16:33 17:53 00:04 WBC RBC Hgb Hct MCV MCH MCHC RDW Plt Count MPV Neut % (Auto) Lymph % (Auto) [place] % (Auto) Eos % (Auto) Baso % (Auto) Neut # (Auto) Lymph # (Auto) [place] # (Auto) Eos # (Auto) Baso # (Auto) Immature Gran % Nucleated RBC % Immature Gran # Nucleated RBCs # Sodium Potassium Chloride Carbon Dioxide Anion Gap BUN Creatinine GFR Calculation BUN/Creatinine Ratio Glucose POC Glucose 174 H 203 H 114 H Calculated Osmolality Calcium Magnesium Total Bilirubin Direct Bilirubin Indirect Bilirubin AST ALT Alkaline Phosphatase Total Creatine Kinase CK-MB (CK-2) Troponin I Total Protein Albumin Globulin Albumin/Globulin Ratio Blood Type Antibody Screen Crossmatch 06/26/16 06/26/16 06/26/16 01:24 02:23 04:09 WBC RBC Hgb Hct MCV MCH MCHC RDW Plt Count MPV Neut % (Auto) Lymph % (Auto) [place] % (Auto) Eos % (Auto) Baso % (Auto) Neut # (Auto) Lymph # (Auto) [place] # (Auto) Eos # (Auto) Baso # (Auto) Immature Gran % Nucleated RBC % Immature Gran # Nucleated RBCs # Sodium Potassium Chloride Carbon Dioxide Anion Gap BUN Creatinine GFR Calculation BUN/Creatinine Ratio Glucose POC Glucose 106 87 121 H Calculated Osmolality Calcium Magnesium Total Bilirubin Direct Bilirubin Indirect Bilirubin AST ALT Alkaline Phosphatase Total Creatine Kinase CK-MB (CK-2) Troponin I Total Protein Albumin Globulin Albumin/Globulin Ratio Blood Type Antibody Screen Crossmatch 06/26/16 06/26/16 06/26/16 06:26 07:23 08:26 WBC RBC Hgb Hct MCV MCH MCHC RDW Plt Count MPV Neut % (Auto) Lymph % (Auto) [place] % (Auto) Eos % (Auto) Baso % (Auto) Neut # (Auto) Lymph # (Auto) [place] # (Auto) Eos # (Auto) Baso # (Auto) Immature Gran % Nucleated RBC % Immature Gran # Nucleated RBCs # Sodium Potassium Chloride Carbon Dioxide Anion Gap BUN Creatinine GFR Calculation BUN/Creatinine Ratio Glucose POC Glucose 145 H 159 H 171 H Calculated Osmolality Calcium Magnesium Total Bilirubin Direct Bilirubin Indirect Bilirubin AST ALT Alkaline Phosphatase Total Creatine Kinase CK-MB (CK-2) Troponin I Total Protein Albumin Globulin Albumin/Globulin Ratio Blood Type Antibody Screen Crossmatch 06/26/16 06/26/16 06/26/16 09:13 11:22 11:25 WBC RBC Hgb Hct MCV MCH MCHC RDW Plt Count MPV Neut % (Auto) Lymph % (Auto) [place] % (Auto) Eos % (Auto) Baso % (Auto) Neut # (Auto) Lymph # (Auto) [place] # (Auto) Eos # (Auto) Baso # (Auto) Immature Gran % Nucleated RBC % Immature Gran # Nucleated RBCs # Sodium Potassium Chloride Carbon Dioxide Anion Gap BUN Creatinine GFR Calculation BUN/Creatinine Ratio Glucose POC Glucose 204 H 323 H 308 H Calculated Osmolality Calcium Magnesium Total Bilirubin Direct Bilirubin Indirect Bilirubin AST ALT Alkaline Phosphatase Total Creatine Kinase CK-MB (CK-2) Troponin I Total Protein Albumin Globulin Albumin/Globulin Ratio Blood Type Antibody Screen Crossmatch 06/26/16 06/26/16 06/27/16 15:18 20:07 00:11 WBC RBC Hgb Hct MCV MCH MCHC RDW Plt Count MPV Neut % (Auto) Lymph % (Auto) [place] % (Auto) Eos % (Auto) Baso % (Auto) Neut # (Auto) Lymph # (Auto) [place] # (Auto) Eos # (Auto) Baso # (Auto) Immature Gran % Nucleated RBC % Immature Gran # Nucleated RBCs # Sodium Potassium Chloride Carbon Dioxide Anion Gap BUN Creatinine GFR Calculation BUN/Creatinine Ratio Glucose POC Glucose 333 H 315 H 243 H Calculated Osmolality Calcium Magnesium Total Bilirubin Direct Bilirubin Indirect Bilirubin AST ALT Alkaline Phosphatase Total Creatine Kinase CK-MB (CK-2) Troponin I Total Protein Albumin Globulin Albumin/Globulin Ratio Blood Type Antibody Screen Crossmatch 06/27/16 06/27/16 06/27/16 03:57 04:14 04:14 WBC 10.7 RBC 3.46 L Hgb 10.8 L Hct 31.3 L MCV 90.5 MCH 31 MCHC 34.5 RDW 11.9 Plt Count 188 MPV 11.2 Neut % (Auto) 76.7 H Lymph % (Auto) 13.5 L [place] % (Auto) 8.8 Eos % (Auto) 0.2 Baso % (Auto) 0.2 Neut # (Auto) 8.3 H Lymph # (Auto) 1.5 [place] # (Auto) 0.9 H Eos # (Auto) 0.0 Baso # (Auto) 0.0 Immature Gran % 0.6 Nucleated RBC % 0.0 Immature Gran # 0.06 Nucleated RBCs # 0.00 Sodium 140 Potassium 4.1 Chloride 104 Carbon Dioxide 28 Anion Gap 12.1 BUN 19 H Creatinine 1.00 GFR Calculation 112 BUN/Creatinine Ratio 19.00 Glucose 134 H POC Glucose 141 H Calculated Osmolality 282.4 Calcium 7.9 L Magnesium 2.1 Total Bilirubin 0.70 Direct Bilirubin 0.10 Indirect Bilirubin 0.6 AST 15 ALT 24 Alkaline Phosphatase 53 Total Creatine Kinase 236 D CK-MB (CK-2) 2.1 D Troponin I 2.800 H D Total Protein 5.2 L Albumin 3.1 L Globulin 2.1 L Albumin/Globulin Ratio 1.4 Blood Type Antibody Screen Crossmatch Quality Measures - VTE Contraindication to Pharmacological VTE Prophylaxis: High Risk of Bleeding Specialty Discharge - Follow Up or Referrals
--- NOTE | 2016-06-27 08:22 | Cardiothoracic Progress Note ---
Cardiothoracic Subjective Interval history: Patient is sore but otherwise okay. He is breathing comfortably and his vital signs are stable. He is beginning to increase his activity according to routine postoperative protocol. Overall his progress is satisfactory. Exam (Progress Note) - Constitutional Vitals: Period Temp Pulse Resp BP Sys/Nunez Pulse Ox Last 24 Hr 96.9 F-98.5 F 86-96 14-20 103-125/48-87 96-100 Result/EKG - Labs CBC & BMP: 06/27/16 04:14 06/27/16 04:14 Labs: Laboratory Results - last 24 hr 06/24/16 06/25/16 06/25/16 03:10 11:32 12:16 WBC RBC Hgb Hct MCV MCH MCHC RDW Plt Count MPV Neut % (Auto) Lymph % (Auto) [place] % (Auto) Eos % (Auto) Baso % (Auto) Neut # (Auto) Lymph # (Auto) [place] # (Auto) Eos # (Auto) Baso # (Auto) Immature Gran % Nucleated RBC % Immature Gran # Nucleated RBCs # Sodium Potassium Chloride Carbon Dioxide Anion Gap BUN Creatinine GFR Calculation BUN/Creatinine Ratio Glucose POC Glucose 316 H 277 H Calculated Osmolality Calcium Magnesium Total Bilirubin Direct Bilirubin Indirect Bilirubin AST ALT Alkaline Phosphatase Total Creatine Kinase CK-MB (CK-2) Troponin I Total Protein Albumin Globulin Albumin/Globulin Ratio Blood Type O POSITIVE Antibody Screen Negative Crossmatch See Detail 06/25/16 06/25/16 06/25/16 13:05 14:06 15:14 WBC RBC Hgb Hct MCV MCH MCHC RDW Plt Count MPV Neut % (Auto) Lymph % (Auto) [place] % (Auto) Eos % (Auto) Baso % (Auto) Neut # (Auto) Lymph # (Auto) [place] # (Auto) Eos # (Auto) Baso # (Auto) Immature Gran % Nucleated RBC % Immature Gran # Nucleated RBCs # Sodium Potassium Chloride Carbon Dioxide Anion Gap BUN Creatinine GFR Calculation BUN/Creatinine Ratio Glucose POC Glucose 253 H 229 H 227 H Calculated Osmolality Calcium Magnesium Total Bilirubin Direct Bilirubin Indirect Bilirubin AST ALT Alkaline Phosphatase Total Creatine Kinase CK-MB (CK-2) Troponin I Total Protein Albumin Globulin Albumin/Globulin Ratio Blood Type Antibody Screen Crossmatch 06/25/16 06/25/16 06/26/16 16:33 17:53 00:04 WBC RBC Hgb Hct MCV MCH MCHC RDW Plt Count MPV Neut % (Auto) Lymph % (Auto) [place] % (Auto) Eos % (Auto) Baso % (Auto) Neut # (Auto) Lymph # (Auto) [place] # (Auto) Eos # (Auto) Baso # (Auto) Immature Gran % Nucleated RBC % Immature Gran # Nucleated RBCs # Sodium Potassium Chloride Carbon Dioxide Anion Gap BUN Creatinine GFR Calculation BUN/Creatinine Ratio Glucose POC Glucose 174 H 203 H 114 H Calculated Osmolality Calcium Magnesium Total Bilirubin Direct Bilirubin Indirect Bilirubin AST ALT Alkaline Phosphatase Total Creatine Kinase CK-MB (CK-2) Troponin I Total Protein Albumin Globulin Albumin/Globulin Ratio Blood Type Antibody Screen Crossmatch 06/26/16 06/26/16 06/26/16 01:24 02:23 04:09 WBC RBC Hgb Hct MCV MCH MCHC RDW Plt Count MPV Neut % (Auto) Lymph % (Auto) [place] % (Auto) Eos % (Auto) Baso % (Auto) Neut # (Auto) Lymph # (Auto) [place] # (Auto) Eos # (Auto) Baso # (Auto) Immature Gran % Nucleated RBC % Immature Gran # Nucleated RBCs # Sodium Potassium Chloride Carbon Dioxide Anion Gap BUN Creatinine GFR Calculation BUN/Creatinine Ratio Glucose POC Glucose 106 87 121 H Calculated Osmolality Calcium Magnesium Total Bilirubin Direct Bilirubin Indirect Bilirubin AST ALT Alkaline Phosphatase Total Creatine Kinase CK-MB (CK-2) Troponin I Total Protein Albumin Globulin Albumin/Globulin Ratio Blood Type Antibody Screen Crossmatch 06/26/16 06/26/16 06/26/16 06:26 07:23 08:26 WBC RBC Hgb Hct MCV MCH MCHC RDW Plt Count MPV Neut % (Auto) Lymph % (Auto) [place] % (Auto) Eos % (Auto) Baso % (Auto) Neut # (Auto) Lymph # (Auto) [place] # (Auto) Eos # (Auto) Baso # (Auto) Immature Gran % Nucleated RBC % Immature Gran # Nucleated RBCs # Sodium Potassium Chloride Carbon Dioxide Anion Gap BUN Creatinine GFR Calculation BUN/Creatinine Ratio Glucose POC Glucose 145 H 159 H 171 H Calculated Osmolality Calcium Magnesium Total Bilirubin Direct Bilirubin Indirect Bilirubin AST ALT Alkaline Phosphatase Total Creatine Kinase CK-MB (CK-2) Troponin I Total Protein Albumin Globulin Albumin/Globulin Ratio Blood Type Antibody Screen Crossmatch 06/26/16 06/26/16 06/26/16 09:13 11:22 11:25 WBC RBC Hgb Hct MCV MCH MCHC RDW Plt Count MPV Neut % (Auto) Lymph % (Auto) [place] % (Auto) Eos % (Auto) Baso % (Auto) Neut # (Auto) Lymph # (Auto) [place] # (Auto) Eos # (Auto) Baso # (Auto) Immature Gran % Nucleated RBC % Immature Gran # Nucleated RBCs # Sodium Potassium Chloride Carbon Dioxide Anion Gap BUN Creatinine GFR Calculation BUN/Creatinine Ratio Glucose POC Glucose 204 H 323 H 308 H Calculated Osmolality Calcium Magnesium Total Bilirubin Direct Bilirubin Indirect Bilirubin AST ALT Alkaline Phosphatase Total Creatine Kinase CK-MB (CK-2) Troponin I Total Protein Albumin Globulin Albumin/Globulin Ratio Blood Type Antibody Screen Crossmatch 06/26/16 06/26/16 06/27/16 15:18 20:07 00:11 WBC RBC Hgb Hct MCV MCH MCHC RDW Plt Count MPV Neut % (Auto) Lymph % (Auto) [place] % (Auto) Eos % (Auto) Baso % (Auto) Neut # (Auto) Lymph # (Auto) [place] # (Auto) Eos # (Auto) Baso # (Auto) Immature Gran % Nucleated RBC % Immature Gran # Nucleated RBCs # Sodium Potassium Chloride Carbon Dioxide Anion Gap BUN Creatinine GFR Calculation BUN/Creatinine Ratio Glucose POC Glucose 333 H 315 H 243 H Calculated Osmolality Calcium Magnesium Total Bilirubin Direct Bilirubin Indirect Bilirubin AST ALT Alkaline Phosphatase Total Creatine Kinase CK-MB (CK-2) Troponin I Total Protein Albumin Globulin Albumin/Globulin Ratio Blood Type Antibody Screen Crossmatch 06/27/16 06/27/16 06/27/16 03:57 04:14 04:14 WBC 10.7 RBC 3.46 L Hgb 10.8 L Hct 31.3 L MCV 90.5 MCH 31 MCHC 34.5 RDW 11.9 Plt Count 188 MPV 11.2 Neut % (Auto) 76.7 H Lymph % (Auto) 13.5 L [place] % (Auto) 8.8 Eos % (Auto) 0.2 Baso % (Auto) 0.2 Neut # (Auto) 8.3 H Lymph # (Auto) 1.5 [place] # (Auto) 0.9 H Eos # (Auto) 0.0 Baso # (Auto) 0.0 Immature Gran % 0.6 Nucleated RBC % 0.0 Immature Gran # 0.06 Nucleated RBCs # 0.00 Sodium 140 Potassium 4.1 Chloride 104 Carbon Dioxide 28 Anion Gap 12.1 BUN 19 H Creatinine 1.00 GFR Calculation 112 BUN/Creatinine Ratio 19.00 Glucose 134 H POC Glucose 141 H Calculated Osmolality 282.4 Calcium 7.9 L Magnesium 2.1 Total Bilirubin 0.70 Direct Bilirubin 0.10 Indirect Bilirubin 0.6 AST 15 ALT 24 Alkaline Phosphatase 53 Total Creatine Kinase 236 D CK-MB (CK-2) 2.1 D Troponin I 2.800 H D Total Protein 5.2 L Albumin 3.1 L Globulin 2.1 L Albumin/Globulin Ratio 1.4 Blood Type Antibody Screen Crossmatch Quality Measures - VTE Contraindication to Pharmacological VTE Prophylaxis: High Risk of Bleeding Specialty Discharge - Follow Up or Referrals
[2016-06-27] MEDS: ASPIRIN EC 325 MG TABLET PO SCH (09:36)
[2016-06-27] MEDS: METOPROLOL TARTRATE 25 MG TABLET PO SCH ×2 (09:36→21:21)
[2016-06-27] MEDS: CHLORHEXIDINE 0.12% ORAL RINSE 60 ML BOTTLE SWISH/SPIT SCH ×2 (09:36→21:27)
[2016-06-27] MEDS: DOCUSATE SODIUM 100 MG CAPSULE PO SCH (09:36)
[2016-06-27] MEDS: PANTOPRAZOLE 40 MG TABLET PO SCH (09:36)
[2016-06-27] MEDS: FERROUS SULFATE 325 MG TABLET PO SCH (09:36)
[2016-06-27] MEDS: SODIUM CHLOR 0.45% KCL 20 MEQ 20 MEQ/1,000 ML BAG IV SCH (10:08)
--- NOTE | 2016-06-27 10:54 | XRay Report ---
History: Shortness of breath Date: 06/27/2016 Study: Chest x-ray AP portable Comparison exam: 06/26/2016 The right IJ central line is in satisfactory position. There has been interval removal of the right subclavian [place] catheter. There is no pneumothorax. There is stable cardiomegaly. The mediastinal contours are unchanged in this patient status post prior median sternotomy. There is continued bibasilar atelectasis, grossly similar. There is minimal left pleural effusion. There is no obvious new or worsening process. The osseous structures are unchanged. Impression: Continued bibasilar atelectasis, grossly similar. Interval [place] catheter removal. No pneumothorax. PROCEDURE INTERPRETED AT [facility] [place] DEPARTMENT OF RADIOLOGY Final Report Signed by: Dr. Sonali Carter
--- NOTE | 2016-06-27 14:28 | Anesthesia Post-Op ---
Anesthesia Post OP - Post Ansesthetic Evaluation Patient seen in post op: Yes Resp: within normal limits CV: within normal limits Mental: within normal limits Temp: within normal limits [id number]: within normal limits Nausea and Vomiting: within normal limits Pain: within normal limits
[2016-06-27] MEDS: ATORVASTATIN 40 MG TABLET PO SCH (21:21)
[2016-06-27] MEDS: ZALEPLON 5 MG CAPSULE PO PRN ×2 (21:21→23:40)
[2016-06-28] MEDS: KETOROLAC 30 MG/1 ML VIAL IV SCH ×4 (03:58→21:20)
[2016-06-28 05:11] LABS: Basophils % 0.2 % (0.0-0.8); Eosinophils # 0.1 10*3/uL (0.0-0.87); Eosinophils % 0.6 % (0.00-10.9); Hematocrit 32.3 VOL% (42.0-52.0); Hemoglobin 11.3 GM/DL (14.0-18.0); Immature Granulocytes % 0.7 %; Immature Granulocytes Absolute 0.06 #; Lymphocytes % 22.2 % (21.2-54.2); Mean Corpuscular Hemoglobin 31 PG (27-34); Mean Corpuscular Volume 89.7 FL (87-102); Mean Platelet Volume 11.4 FL (9.6-12.0); Monocytes # 0.7 10*3/uL (0.11-0.8); Monocytes % 7.7 % (1.7-12.7); Neutrophils # 6.2 10*3/uL (1.4-7.4); Neutrophils % 68.6 % (38.7-73.9); Platelet Count 207 T/CUMM (130-400); Red Cell Distribution Width 11.9 % (9.3-17.3); White Blood Count 9.1 T/CUMM (4-12)
[2016-06-28 05:54] LABS: Alanine Aminotransferase 22 U/L (16-61); Albumin 3.1 G/DL (3.4-5.0); Alkaline Phosphatase 62 U/L (45-117); Aspartate Amino Transferase 13 U/L (0-37); Bilirubin,Indirect 0.7 MG/DL (0.0-1.0); Blood Urea Nitrogen 22 MG/DL (7-18); Calcium 8.1 MG/DL (8.5-10.1); Glucose 168 MG/DL (74-106); Magnesium 2.1 MG/DL (1.8-2.4); Osmolality,Calculated 285.4 MOS/KG (273-304); Potassium 3.8 MMOL/L (3.5-5.1); Sodium 140 MMOL/L (136-145); Total Protein 5.4 G/DL (6.4-8.3)
--- NOTE | 2016-06-28 06:16 | Cardiothoracic Progress Note ---
Cardiothoracic Subjective Interval history: Patient looks and feels okay. Vital signs are stable and is breathing comfortably. Laboratory work looks within normal limits. He is increasing his activity according to routine postoperative protocol. Overall his progress appears satisfactory. Exam (Progress Note) - Constitutional Vitals: Period Temp Pulse Resp BP Sys/Nunez Pulse Ox Last 24 Hr 97.3 F-98.7 F 86-96 18-90 107-141/59-88 92-95 Result/EKG - Labs CBC & BMP: 06/28/16 04:05 06/28/16 04:05 Labs: Laboratory Results - last 24 hr 06/24/16 06/27/16 06/27/16 03:10 08:18 11:48 WBC RBC Hgb Hct MCV MCH MCHC RDW Plt Count MPV Neut % (Auto) Lymph % (Auto) [place] % (Auto) Eos % (Auto) Baso % (Auto) Neut # (Auto) Lymph # (Auto) [place] # (Auto) Eos # (Auto) Baso # (Auto) Immature Gran % Nucleated RBC % Immature Gran # Nucleated RBCs # Sodium Potassium Chloride Carbon Dioxide Anion Gap BUN Creatinine GFR Calculation BUN/Creatinine Ratio Glucose POC Glucose 187 H 255 H Calculated Osmolality Calcium Magnesium Total Bilirubin Direct Bilirubin Indirect Bilirubin AST ALT Alkaline Phosphatase Total Creatine Kinase CK-MB (CK-2) Troponin I Total Protein Albumin Globulin Albumin/Globulin Ratio Blood Type O POSITIVE Antibody Screen Negative Crossmatch See Detail 06/27/16 06/27/16 06/28/16 16:54 19:09 04:05 WBC 9.1 RBC 3.60 L Hgb 11.3 L Hct 32.3 L MCV 89.7 MCH 31 MCHC 35.0 RDW 11.9 Plt Count 207 MPV 11.4 Neut % (Auto) 68.6 Lymph % (Auto) 22.2 [place] % (Auto) 7.7 Eos % (Auto) 0.6 Baso % (Auto) 0.2 Neut # (Auto) 6.2 Lymph # (Auto) 2.0 [place] # (Auto) 0.7 Eos # (Auto) 0.1 Baso # (Auto) 0.0 Immature Gran % 0.7 Nucleated RBC % 0.0 Immature Gran # 0.06 Nucleated RBCs # 0.00 Sodium Potassium Chloride Carbon Dioxide Anion Gap BUN Creatinine GFR Calculation BUN/Creatinine Ratio Glucose POC Glucose 217 H 301 H Calculated Osmolality Calcium Magnesium Total Bilirubin Direct Bilirubin Indirect Bilirubin AST ALT Alkaline Phosphatase Total Creatine Kinase CK-MB (CK-2) Troponin I Total Protein Albumin Globulin Albumin/Globulin Ratio Blood Type Antibody Screen Crossmatch 06/28/16 04:05 WBC RBC Hgb Hct MCV MCH MCHC RDW Plt Count MPV Neut % (Auto) Lymph % (Auto) [place] % (Auto) Eos % (Auto) Baso % (Auto) Neut # (Auto) Lymph # (Auto) [place] # (Auto) Eos # (Auto) Baso # (Auto) Immature Gran % Nucleated RBC % Immature Gran # Nucleated RBCs # Sodium 140 Potassium 3.8 Chloride 105 Carbon Dioxide 28 Anion Gap 10.8 BUN 22 H Creatinine 0.90 GFR Calculation 128 BUN/Creatinine Ratio 24.00 H Glucose 168 H POC Glucose Calculated Osmolality 285.4 Calcium 8.1 L Magnesium 2.1 Total Bilirubin 0.90 Direct Bilirubin 0.20 Indirect Bilirubin 0.7 AST 13 ALT 22 Alkaline Phosphatase 62 Total Creatine Kinase 173 D CK-MB (CK-2) < 1.0 Troponin I 2.210 H D Total Protein 5.4 L Albumin 3.1 L Globulin 2.3 Albumin/Globulin Ratio 1.3 Blood Type Antibody Screen Crossmatch Quality Measures - VTE Contraindication to Pharmacological VTE Prophylaxis: High Risk of Bleeding Specialty Discharge - Follow Up or Referrals
--- NOTE | 2016-06-28 07:41 | XRay Report ---
XR chest 1V portable Indication: Shortness of breath Comparison: Chest x-ray 06/27/2016 Technique: Portable AP chest was performed. Findings: Opacification of the left lung base and blunting the left costophrenic angle demonstrates little change in comparison study. Right-sided IJ central venous catheter is stable. Chest otherwise demonstrates little change. Impression: 1. Little interval change in the chest. Findings as detailed. 06/28/2016 7:38 AM PROCEDURE INTERPRETED AT [facility] DEPARTMENT OF RADIOLOGY Final Report Signed by: Dr. Boris Marroquin
[2016-06-28] MEDS: POTASSIUM CHLORIDE 20 MEQ TABLET PO PRN ×2 (08:50→08:52)
[2016-06-28] MEDS: PANTOPRAZOLE 40 MG TABLET PO SCH (08:50)
[2016-06-28] MEDS: DOCUSATE SODIUM 100 MG CAPSULE PO SCH (08:50)
[2016-06-28] MEDS: INSULIN REGULAR 100 UNIT/ML SUBCUT SCH ×4 (08:51→21:20)
[2016-06-28] MEDS: METOPROLOL TARTRATE 25 MG TABLET PO SCH ×2 (08:51→21:20)
[2016-06-28] MEDS: ASPIRIN EC 325 MG TABLET PO SCH (09:21)
[2016-06-28] MEDS: CHLORHEXIDINE 0.12% ORAL RINSE 60 ML BOTTLE SWISH/SPIT SCH ×2 (09:21→21:20)
[2016-06-28] MEDS: FERROUS SULFATE 325 MG TABLET PO SCH (09:21)
--- NOTE | 2016-06-28 12:33 | Sleep Medicine Progress Note ---
Assessment and Plan (1) Diabetes Status: Chronic Current Visit: Yes (2) NSTEMI (non-ST elevated myocardial infarction) Status: Resolved Current Visit: Yes (3) Sleep apnea Status: Chronic Assessment and plan: This patient does have evidence of obstructive sleep apnea. We will place him back on CPAP at night with sleep and follow-up results. He is being tried on a different mask tonight to see if this helps with tolerance and compliance. Current Visit: Yes Sleep Medicine Subjective Interval history: Patient is now day 3 postop bypass surgery. He appears to be doing very well and is sitting up in a chair getting ready to eat lunch. He did not use CPAP last night or over the weekend after surgery. He was complaining about his mask fit. He was refit with a different mass today and will try again the night. I reviewed his prior sleep study results with him to his understanding. Exam (Progress Note) - Constitutional Vitals: Period Temp Pulse Resp BP Sys/Nunez Pulse Ox Last 24 Hr 97.4 F-98.0 F 79-93 18-90 107-141/59-88 92-99 Exam: He is alert and responsive and doing well. HEENT unremarkable. Neck supple without adenopathy. Chest with decreased breath sounds in the bases bilaterally but no wheeze or rhonchi are heard. Cardiac exam reveals a regular rhythm without murmur or gallop. Abdomen soft nontender extremities without increased edema. Neurologically, he is grossly intact. Results - Labs CBC & BMP: 06/28/16 04:05 06/28/16 04:05 Lab Results: I have reviewed the past 24 hour labs Specialty Discharge - Follow Up or Referrals
--- NOTE | 2016-06-28 12:58 | Hospitalist Consult Note ---
Assessment and Plan (1) NSTEMI (non-ST elevated myocardial infarction) Status: Resolved Assessment and plan: Status post CABG 2 Current Visit: Yes (2) Diabetes Status: Chronic Assessment and plan: Hemoglobin A1c, metformin thousand milligrams p.o. twice daily, Lantus 7 units now. 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 Current Visit: Yes History of Present Illness - Data of Consult Consult date: 06/28/16 Requesting Physician: Luis Mansfield - Consult Narrative Reason for consult: uncontrolled bs History of present illness: Mr. Paulson is a 56 year old male with a history of diabetes and hypertension who recently had CABG X2 by Dr. Chapa on 06/25/16. Asked to see him for management of diabetes. BS 134 to 301. CC: Socorro Martin - Home Medications and Allergies Home Medications: Home Medications Medication Instructions Recorded Confirmed Type No Known Home Medications [No 06/22/16 06/22/16 History Known Home Medications] Allergies/Adverse Reactions: Allergies Allergy/AdvReac Type Severity Reaction Status Date / Time codeine Allergy ITCHING Verified 01/11/15 09:24 Medical,Surgical,& Family Hx - Medical History Cardio: No history of: CHF, CAD, Hypertension, [place] Neurology: No history of: Seizures Endocrine: History of: Diabetes Mellitus (NIDDM) Respiratory: History of: Obstructive Sleep Apnea, Pneumonia Genitourinary: History of: Prostate Problems (CA) - Surgical History Cardiac Surgeries: Sugical HX of: Cardiac Catheterization, Cardiac Surgery Reproductive Surgeries: Surgical HX of;: Prostate Surgery Orthopedic Surgeries: Surgical HX of;: Orthopedic Surgery (lane knee surg) - Family History Family History: Reports;: Family Cancer (mother), Family Diabetes (father) - Social History Smoking Status: Never smoker Frequency of Alcohol Use: None Type of Drug Use: None Marital Status: Lives With:: Spouse Functional capacity: independent ambulation - Constitutional Constitutional: Absent: fever(s), headache(s) - EENT Eyes: Absent: blurry vision, diplopia Ears: Absent: decreased hearing, ear discharge Nose, mouth and throat: Absent: headache(s), sore throat - Cardiovascular Cardiovascular: Present: chest pain at rest, chest pain with activity. Absent: dyspnea, dyspnea on exertion, edema - Respiratory Respiratory: Absent: dyspnea, dyspnea on exertion - Gastrointestinal Gastrointestinal: Absent: constipation, diarrhea, nausea, vomiting - Genitourinary Genitourinary: Present: difficulty urinating. Absent: dysuria - Musculoskeletal Musculoskeletal: Absent: arthralgias, back pain - Neurological Neurological: Absent: confusion, syncope - Psychiatric Psychiatric: Absent: anxiety, depression - Endocrine Endocrine: Absent: cold intolerance, fatigue, heat intolerance - Hematologic/Lymphatic Hematologic/Lymphatic: Absent: easy bleeding, easy bruising Exam - Constitutional Vitals: Period Temp Pulse Resp BP Sys/Nunez Pulse Ox Last 24 Hr 97.4 F-98.0 F 79-93 18-90 107-141/59-88 92-99 General appearance: no acute distress, over weight - Head Head exam: Present: normal inspection, normocephalic - Eye Eye exam: Present: EOMI. Absent: scleral icterus Pupils: Present: RUDDY, normal accommodation - ENT ENT exam: Present: normal exam, normal external ear exam - Neck Neck exam: Absent: lymphadenopathy, thyromegaly - Respiratory Respiratory exam: Present: clear to auscultation bilaterally. Absent: rhonchi, wheezes - Cardiovascular Cardiovascular exam: Present: regular rate and rhythm. Absent: systolic murmur - GI/Abdominal GI/Abdominal exam: Present: normal bowel sounds, soft. Absent: tenderness - Extremities Exam Extremities exam: Present: normal inspection, normal capillary refill - Neurological Exam Neurological exam: Present: alert, oriented X3, CN II-XII intact, reflexes normal. Absent: motor sensory deficit - Psychiatric Psychiatric exam: Present: normal affect, normal mood - Skin Skin exam: Present: normal color, warm, other (lt leg wound healing ) Results - Labs CBC & BMP: 06/28/16 04:05 06/28/16 04:05 Lab Results: I have reviewed the past 24 hour labs - Diagnostic Findings Procedure: Chest x-ray: report reviewed by me (Chest x-ray unchanged left lower lobe opacity suggested) Quality Measures - VTE Contraindication to Pharmacological VTE Prophylaxis: High Risk of Bleeding Specialty Discharge - Follow Up or Referrals
[2016-06-28] MEDS: INSULIN GLARGINE 100 UNIT/ML SUBCUT SCH (13:36)
--- NOTE | 2016-06-28 14:50 | Cardiology Progress Note ---
Assessment and Plan - Time spent with patient Time spent with patient: Greater than 30 minutes (1) NSTEMI (non-ST elevated myocardial infarction) Status: Resolved Assessment and plan: SEE PLAN OF CARE LISTED BELOW Current Visit: Yes (2) Diabetes Status: Chronic Assessment and plan: SEE PLAN OF CARE LISTED BELOW Current Visit: Yes (3) Obesity Status: Chronic Assessment and plan: SEE PLAN OF CARE LISTED BELOW Current Visit: Yes (4) Dyslipidemia Status: Chronic Assessment and plan: See plan of care listed below Current Visit: Yes (5) Sleep apnea Status: Chronic Assessment and plan: See plan of care listed below Current Visit: Yes (6) CAD (coronary artery disease) Status: Chronic Assessment and plan: SEE PLAN OF CARE LISTED CARE Current Visit: Yes (7) S/P CABG x 2 Status: Chronic Assessment and plan: SEE PLAN OF CARE LISTED BELOW Current Visit: Yes Cardiology - PN: Subj Interval history: INTERNET SALES CONSULTANT: DR. SOLITARIO SUMMARY: Mr. Paulson presented to the emergency department of [facility] June 21, 2016 with complaints of chest pain. He was diagnosed with NSTEMI. He was ultimately taken to the cardiac catheterization lab where Dr. Solitario performed heart catheterization. 3VCAD was discovered. EF 45% to 50%. He underwent elective CABG, performed by Dr. Chapa, June 25, 2016: KELLY to LAD, SVG to OM. He tolerated the procedure well without complication. Dr. Garrido has been managing his newly diagnosed obstructive sleep apnea. POD 3, JUNE 28, 2016: Patient is doing well. Chest discomfort occurs when he is coughing but otherwise he feels as if he is progressing nicely. He has been ambulating without difficulty. His vital signs are stable. Systolic blood pressure averaging 120s-140s. Today, will introduce low-dose beta blockade and monitor accordingly. He is taking aspirin, atorvastatin (LDL 113). ASSESSMENT/PLAN: 1. NSTEMI - status post revascularization. 2. CAD S/P CABG X 2 (KELLY-LAD, SVG-OM) - increase exercise. Encourage incentive spirometry. Suspect he will be discharged home within the next 2 days 3. DIABETES - continue sliding scale insulin. Metformin has been reintroduced. Blood sugars are stable. 4. SUSPECTED HYPERTENSION -will start Coreg 3.125 mg orally twice daily. Would benefit from an CONSUELO inhibitor when blood pressure will allow. 5. DYSLIPIDEMIA - LDL 113. Continue atorvastatin 40 mg orally each evening. 6. OBESITY - dietary counseling prior to discharge 7. MODERATE SLEEP APNEA - appreciate Dr. Garrido's assistance. Exam (Progress Note) - Constitutional Vitals: Period Temp Pulse Resp BP Sys/Nunez Pulse Ox Last 24 Hr 97.4 F-98.0 F 79-93 18-90 107-141/59-88 92-99 Exam: General: [Appears well with no apparent distress.] [Pleasant and cooperative. ] [Appears comfortable.] HEENT: [PERRL, normocephalic, atraumatic. Mucous membranes moist. No jaundice noted. Conjunctiva moist and clear, sclerae anicteric] Neck: No JVD/HJR, no thyromegaly or lymphadenopathy noted. No carotid bruit appreciated Cardiac: [Regular rate and rhythm.] [No murmur rub or gallop.] Chest: Midsternal incision healing well without dehiscence or drainage. No sternal rocking noted. Lungs: [Clear to auscultation without accessory muscle use to assist the respiratory pattern.] Not requiring oxygen Abdomen: Soft, bowel sounds normoactive. Nontender and nondistended. No abdominal bruit or thrill noted. No masses noted. Musculoskeletal: No fluid collection. Decreased range of motion is noted. Extremities: Right groin soft, free of hematoma or bruit. No clubbing, cyanosis noted. [ No edema noted.] Upper extremity pulses 2+. Lower extremity pulses 2+. Capillary refill less than 3 seconds. Left lower extremity incision healing well without dehiscence or drainage. Skin: No unusual lesions or rashes. No skin breakdown appreciated. Neuro: Awake, alert and oriented 3. Moves all extremities well without hemiparesis or paralysis. No essential tremor is appreciated. Result/EKG - Labs CBC & BMP: 06/28/16 04:05 06/28/16 04:05 Lab Results: I have reviewed the past 24 hour labs Labs: Laboratory Results - last 24 hr 06/27/16 06/27/16 06/27/16 11:48 16:54 19:09 WBC RBC Hgb Hct MCV MCH MCHC RDW Plt Count MPV Neut % (Auto) Lymph % (Auto) [place] % (Auto) Eos % (Auto) Baso % (Auto) Neut # (Auto) Lymph # (Auto) [place] # (Auto) Eos # (Auto) Baso # (Auto) Immature Gran % Nucleated RBC % Immature Gran # Nucleated RBCs # Sodium Potassium Chloride Carbon Dioxide Anion Gap BUN Creatinine GFR Calculation BUN/Creatinine Ratio Glucose POC Glucose 255 H 217 H 301 H Hemoglobin A1c Calculated Osmolality Calcium Magnesium Total Bilirubin Direct Bilirubin Indirect Bilirubin AST ALT Alkaline Phosphatase Total Creatine Kinase CK-MB (CK-2) Troponin I Total Protein Albumin Globulin Albumin/Globulin Ratio 06/28/16 06/28/16 06/28/16 04:05 04:05 04:05 WBC 9.1 RBC 3.60 L Hgb 11.3 L Hct 32.3 L MCV 89.7 MCH 31 MCHC 35.0 RDW 11.9 Plt Count 207 MPV 11.4 Neut % (Auto) 68.6 Lymph % (Auto) 22.2 [place] % (Auto) 7.7 Eos % (Auto) 0.6 Baso % (Auto) 0.2 Neut # (Auto) 6.2 Lymph # (Auto) 2.0 [place]verse # (Auto) 0.7 Eos # (Auto) 0.1 Baso # (Auto) 0.0 Immature Gran % 0.7 Nucleated RBC % 0.0 Immature Gran # 0.06 Nucleated RBCs # 0.00 Sodium 140 Potassium 3.8 Chloride 105 Carbon Dioxide 28 Anion Gap 10.8 BUN 22 H Creatinine 0.90 GFR Calculation 128 BUN/Creatinine Ratio 24.00 H Glucose 168 H POC Glucose Hemoglobin A1c 10.4 H Calculated Osmolality 285.4 Calcium 8.1 L Magnesium 2.1 Total Bilirubin 0.90 Direct Bilirubin 0.20 Indirect Bilirubin 0.7 AST 13 ALT 22 Alkaline Phosphatase 62 Total Creatine Kinase 173 D CK-MB (CK-2) < 1.0 Troponin I 2.210 H D Total Protein 5.4 L Albumin 3.1 L Globulin 2.3 Albumin/Globulin Ratio 1.3 06/28/16 06/28/16 06:59 11:40 WBC RBC Hgb Hct MCV MCH MCHC RDW Plt Count MPV Neut % (Auto) Lymph % (Auto) [place] % (Auto) Eos % (Auto) Baso % (Auto) Neut # (Auto) Lymph # (Auto) [place] # (Auto) Eos # (Auto) Baso # (Auto) Immature Gran % Nucleated RBC % Immature Gran # Nucleated RBCs # Sodium Potassium Chloride Carbon Dioxide Anion Gap BUN Creatinine GFR Calculation BUN/Creatinine Ratio Glucose POC Glucose 175 H 205 H Hemoglobin A1c Calculated Osmolality Calcium Magnesium Total Bilirubin Direct Bilirubin Indirect Bilirubin AST ALT Alkaline Phosphatase Total Creatine Kinase CK-MB (CK-2) Troponin I Total Protein Albumin Globulin Albumin/Globulin Ratio - Diagnostic Findings Procedure: Chest x-ray: report reviewed by me - EKG EKG results: interpreted by me EKG shows: sinus rhythm Quality Measures - VTE Contraindication to Pharmacological VTE Prophylaxis: High Risk of Bleeding Specialty Discharge - Follow Up or Referrals
[2016-06-28] MEDS: LACTULOSE 20 GM/30 ML UDCUP PO PRN (16:05)
[2016-06-28] MEDS: metFORMIN 500 MG TABLET PO SCH (17:03)
[2016-06-28] MEDS: CARVEDILOL 3.125 MG TABLET PO SCH (21:20)
[2016-06-28] MEDS: ATORVASTATIN 40 MG TABLET PO SCH (21:20)
[2016-06-28] MEDS: ZALEPLON 5 MG CAPSULE PO PRN (23:31)
[2016-06-29] MEDS: KETOROLAC 30 MG/1 ML VIAL IV SCH (03:11)
--- NOTE | 2016-06-29 06:33 | Cardiothoracic Progress Note ---
Cardiothoracic Subjective Interval history: Patient is doing well. Vital signs are stable and he is breathing comfortably. He is increasing his activity. He probably will be ready for discharge tomorrow. Exam (Progress Note) - Constitutional Vitals: Period Temp Pulse Resp BP Sys/Nunez Pulse Ox Last 24 Hr 96.8 F-98.6 F 76-88 16-20 132-151/74-83 93-99 Result/EKG - Labs CBC & BMP: 06/28/16 04:05 06/28/16 04:05 Labs: Laboratory Results - last 24 hr 06/28/16 06/28/16 06/28/16 04:05 06:59 11:40 POC Glucose 175 H 205 H Hemoglobin A1c 10.4 H 06/28/16 06/28/16 16:29 20:42 POC Glucose 255 H 226 H Hemoglobin A1c Quality Measures - VTE Contraindication to Pharmacological VTE Prophylaxis: High Risk of Bleeding Specialty Discharge - Follow Up or Referrals
[2016-06-29 07:05] LABS: Magnesium 2.1 MG/DL (1.8-2.4); Osmolality,Calculated 286.4 MOS/KG (273-304); Potassium 4.3 MMOL/L (3.5-5.1)
[2016-06-29] MEDS: INSULIN GLARGINE 100 UNIT/ML SUBCUT SCH (08:59)
[2016-06-29] MEDS: DOCUSATE SODIUM 100 MG CAPSULE PO SCH (09:00)
[2016-06-29] MEDS: metFORMIN 500 MG TABLET PO SCH ×2 (09:00→17:10)
[2016-06-29] MEDS: INSULIN REGULAR 100 UNIT/ML SUBCUT SCH ×8 (09:00→21:25)
[2016-06-29] MEDS: PANTOPRAZOLE 40 MG TABLET PO SCH (09:00)
[2016-06-29] MEDS: METOPROLOL TARTRATE 25 MG TABLET PO SCH ×2 (09:00→21:24)
[2016-06-29] MEDS: ASPIRIN EC 325 MG TABLET PO SCH (09:00)
[2016-06-29] MEDS: FERROUS SULFATE 325 MG TABLET PO SCH (09:01)
[2016-06-29] MEDS: CARVEDILOL 3.125 MG TABLET PO SCH (09:03)
[2016-06-29] MEDS: LACTULOSE 20 GM/30 ML UDCUP PO PRN (09:05)
[2016-06-29] MEDS: CHLORHEXIDINE 0.12% ORAL RINSE 60 ML BOTTLE SWISH/SPIT SCH ×2 (10:14→21:26)
[2016-06-29] MEDS ORDERED: INSULIN GLARGINE 100 UNIT/ML SUBCUT SCH (10:47)
--- NOTE | 2016-06-29 13:21 | Hospitalist Progress Note ---
Assessment and Plan (1) NSTEMI (non-ST elevated myocardial infarction) Status: Resolved Assessment and plan: Status post CABG 2 Current Visit: Yes (2) Diabetes Status: Chronic Assessment and plan: Hemoglobin A1c 10.4, cont metformin and added amaryl in addition to mealtime insulin Current Visit: Yes (3) Sleep apnea Status: Chronic Assessment and plan: still says mask is uncomfortable brought him two more masks to wear Current Visit: Yes Hospitalist: Subjective Interval history: bs still running in the 200s had a vicky conversation about diet and exercise. He does not want to have insulin injections will start amaryl in an attempt to control his sugar. at bedside and she understands, BS running 250 to 300 at home, he does not check his blood sugar. Exam - Constitutional Vitals: Period Temp Pulse Resp BP Sys/Nunez Pulse Ox Last 24 Hr 96.8 F-98.6 F 76-88 16-20 136-161/76-86 95-97 Exam: Heart Rate-[RRR] Lungs-[CTAB] GI-[+bs soft, NT] Ext-[no edema, left leg wound healing] Neuro [Motor 5/5], [alert and oriented times 3] psych [normal mood and affect] General [no acute distress] Results - Labs CBC & BMP: 06/28/16 04:05 06/29/16 06:08 Lab Results: I have reviewed the past 24 hour labs Quality Measures - VTE Contraindication to Pharmacological VTE Prophylaxis: High Risk of Bleeding Specialty Discharge - Follow Up or Referrals
--- NOTE | 2016-06-29 13:26 | Cardiology Progress Note ---
<Bronwyn Vale E - Last Filed: 06/29/16 14:01> Assessment and Plan - Time spent with patient Time spent with patient: Greater than 30 minutes (1) NSTEMI (non-ST elevated myocardial infarction) Status: Resolved Assessment and plan: SEE PLAN OF CARE LISTED BELOW Current Visit: Yes (2) Diabetes Status: Chronic Assessment and plan: SEE PLAN OF CARE LISTED BELOW Current Visit: Yes (3) Obesity Status: Chronic Assessment and plan: SEE PLAN OF CARE LISTED BELOW Current Visit: Yes (4) Dyslipidemia Status: Chronic Assessment and plan: See plan of care listed below Current Visit: Yes (5) Sleep apnea Status: Chronic Assessment and plan: See plan of care listed below Current Visit: Yes Qualifiers: Sleep apnea type: obstructive Qualified Code(s): G47.33 - Obstructive sleep apnea (adult) (pediatric) (6) CAD (coronary artery disease) Status: Chronic Assessment and plan: SEE PLAN OF CARE LISTED CARE Current Visit: Yes (7) S/P CABG x 2 Status: Chronic Assessment and plan: SEE PLAN OF CARE LISTED BELOW Current Visit: Yes Cardiology - PN: Subj Interval history: INFORMATION RECEPTIONIST: DR. SOLITARIO SUMMARY: Mr. Paulson presented to the emergency department of [facility] June 21, 2016 with complaints of chest pain. He was diagnosed with NSTEMI. He was ultimately taken to the cardiac catheterization lab where Dr. Solitario performed heart catheterization. 3VCAD was discovered. EF 45% to 50%. He underwent elective CABG, performed by Dr. Chapa, June 25, 2016: KELLY to LAD, SVG to OM. He tolerated the procedure well without complication. Dr. Garrido has been managing his newly diagnosed obstructive sleep apnea. POD 4, JUNE 29, 2016: Patient is doing well. Chest discomfort occurs when he is coughing but otherwise he feels as if he is progressing nicely. He has been ambulating without difficulty. His vital signs are stable. Systolic blood pressure averaging 140-150's. Will start Losartan (now dose). He is taking aspirin, atorvastatin (LDL 113). His blood glucose remains elevated and will defer to Hospitalist to adjust meds accordingly. Suspect patient will be discharged tomorrow. ASSESSMENT/PLAN: 1. NSTEMI - status post revascularization. 2. CAD S/P CABG X 2 (KELLY-LAD, SVG-OM) - increase exercise. Encourage incentive spirometry. Suspect he will be discharged home tomorrow 3. DIABETES - continue sliding scale insulin. Metformin has been reintroduced. Blood sugars are still elevated. Hospitalist managing. 4. SUSPECTED HYPERTENSION - Adding Losartan (now dose) and daily for better blood pressure control. 5. DYSLIPIDEMIA - LDL 113. Continue atorvastatin 40 mg orally each evening. 6. OBESITY - dietary counseling prior to discharge 7. MODERATE SLEEP APNEA - appreciate Dr. Garrido's assistance. Exam (Progress Note) - Constitutional Vitals: Period Temp Pulse Resp BP Sys/Nunez Pulse Ox Last 24 Hr 96.8 F-98.6 F 76-88 16-20 136-161/76-86 95-97 Exam: General: [Appears well with no apparent distress.] [Pleasant and cooperative. ] [Appears comfortable.] HEENT: [PERRL, normocephalic, atraumatic. Mucous membranes moist. No jaundice noted. Conjunctiva moist and clear, sclerae anicteric] Neck: No JVD/HJR, no thyromegaly or lymphadenopathy noted. No carotid bruit appreciated Cardiac: [Regular rate and rhythm.] [No murmur rub or gallop.] Chest: Midsternal incision healing well without dehiscence or drainage. No sternal rocking noted. Lungs: [Clear to auscultation without accessory muscle use to assist the respiratory pattern.] Not requiring oxygen Abdomen: Soft, bowel sounds normoactive. Nontender and nondistended. No abdominal bruit or thrill noted. No masses noted. Musculoskeletal: No fluid collection. Decreased range of motion is noted. Extremities: Right groin soft, free of hematoma or bruit. No clubbing, cyanosis noted. [ No edema noted.] Upper extremity pulses 2+. Lower extremity pulses 2+. Capillary refill less than 3 seconds. Left lower extremity incision healing well without dehiscence or drainage. Skin: No unusual lesions or rashes. No skin breakdown appreciated. Neuro: Awake, alert and oriented 3. Moves all extremities well without hemiparesis or paralysis. No essential tremor is appreciated. Result/EKG - Labs CBC & BMP: 06/28/16 04:05 06/29/16 06:08 Lab Results: I have reviewed the past 24 hour labs Labs: Laboratory Results - last 24 hr 06/28/16 06/28/1606/28/17 04:05 16:29 20:42 Sodium Potassium Chloride Carbon Dioxide Anion Gap BUN Creatinine GFR Calculation BUN/Creatinine Ratio Glucose POC Glucose 255 H 226 H Hemoglobin A1c 10.4 H Calculated Osmolality Calcium Magnesium 06/29/16 06/29/16 06/29/16 06:08 07:57 12:08 Sodium 140 Potassium 4.3 Chloride 104 Carbon Dioxide 28 Anion Gap 12.3 BUN 18 Creatinine 0.80 GFR Calculation 140 BUN/Creatinine Ratio 22.00 H Glucose 206 H POC Glucose 190 H 215 H Hemoglobin A1c Calculated Osmolality 286.4 Calcium 8.0 L Magnesium 2.1 - Diagnostic Findings Procedure: Chest x-ray: report reviewed by me - EKG EKG results: interpreted by me EKG shows: sinus rhythm Quality Measures - VTE Contraindication to Pharmacological VTE Prophylaxis: High Risk of Bleeding Specialty Discharge - Follow Up or Referrals Follow up with: Yordan Solitario MD [Physician] - 1 Month (BMP, Mg+ CBC, EKG) <Gayle Larry - Last Filed: 06/29/16 14:28> Cardiology - PN: Subj Interval history: I have personally interviewed and evaluated the patient, reviewed the chart and discussed medical decision-making with Practitioner Akanksha. I have read this note and agree with her documentation here in. Exam (Progress Note) - Constitutional Vitals: Period Temp Pulse Resp BP Sys/Nunez Pulse Ox Last 24 Hr 96.8 F-98.6 F 76-88 16-20 136-161/76-86 95-97 Result/EKG - Labs CBC & BMP: 06/28/16 04:05 06/29/16 06:08 Labs: Laboratory Results - last 24 hr 06/28/16 06/28/16 06/29/16 16:29 20:42 06:08 Sodium 140 Potassium 4.3 Chloride 104 Carbon Dioxide 28 Anion Gap 12.3 BUN 18 Creatinine 0.80 GFR Calculation 140 BUN/Creatinine Ratio 22.00 H Glucose 206 H POC Glucose 255 H 226 H Calculated Osmolality 286.4 Calcium 8.0 L Magnesium 2.1 06/29/16 06/29/16 07:57 12:08 Sodium Potassium Chloride Carbon Dioxide Anion Gap BUN Creatinine GFR Calculation BUN/Creatinine Ratio Glucose POC Glucose 190 H 215 H Calculated Osmolality Calcium Magnesium
--- NOTE | 2016-06-29 13:39 | Sleep Medicine Progress Note ---
Assessment and Plan (1) Sleep apnea Status: Chronic Assessment and plan: Mr. Paulson tolerated CPAP therapy for 1 hour 16 minutes last night. During the majority of treatment, he had a significant mask leak. He was fit for a different style mask earlier today and plans to try CPAP again this afternoon and during his sleep time tonight. Due to his complaints of increased anxiety with use of treatment, I recommend that he try to use device for short periods of time while awake and watching television. I reviewed the results of his HST again with both he and his both verbalized understanding of the importance of treatment. He will continue working to become more tolerant of treatment. Current Visit: Yes Qualifiers: Sleep apnea type: obstructive Qualified Code(s): G47.33 - Obstructive sleep apnea (adult) (pediatric) Sleep Medicine Subjective Interval history: Mr. Paulson is a pleasant 56-year-old male who was recently diagnosed by HST with obstructive sleep apnea. He had a diagnostic AHI of 29 along with oxygen desaturations as low as 85%. He is currently hospitalized after undergoing coronary artery bypass grafting on June 25. He is accompanied by his and son today. He was prescribed AutoPap with a pressure ranging from 5-20 cm for treatment of his underlying apnea. Unfortunately, he had a difficult time using CPAP therapy last night and became very frustrated with it. He states he became very anxious with treatment and was only able to tolerate it for a little over an hour. Earlier today a highway maintenance technician came by and he was fit for a different style mask. He hopes to tolerate therapy longer. He has had a "bad day" according to his and son due to pain. Exam (Progress Note) - Constitutional Vitals: Period Temp Pulse Resp BP Sys/Nunez Pulse Ox Last 24 Hr 96.8 F-98.6 F 76-88 16-20 136-161/76-86 95-97 - Head Head exam: Present: normocephalic, atraumatic - Respiratory Respiratory exam: Present: clear to auscultation bilaterally - Cardiovascular Cardiovascular exam: Present: regular rate and rhythm - Neurological Exam Neurological exam: Present: alert, oriented X3 - Psychiatric Psychiatric exam: Present: normal mood - Skin Skin exam: Present: warm Results - Labs CBC & BMP: 06/28/16 04:05 06/29/16 06:08 Specialty Discharge - Follow Up or Referrals
[2016-06-29] MEDS: LOSARTAN 25 MG TABLET PO SCH (16:14)
[2016-06-29] MEDS ORDERED: GLIMEPIRIDE 4 MG TABLET PO SCH (17:00)
[2016-06-29] MEDS: GLIMEPIRIDE 4 MG TABLET PO SCH (17:10)
[2016-06-29] MEDS: ATORVASTATIN 40 MG TABLET PO SCH (21:24)
[2016-06-30 05:10] LABS: Basophils # 0.1 10*3/uL (0.0-0.2); Basophils % 0.6 % (0.0-0.8); Eosinophils # 0.2 10*3/uL (0.0-0.87); Eosinophils % 1.7 % (0.00-10.9); Hemoglobin 12.5 GM/DL (14.0-18.0); Immature Granulocytes % 0.6 %; Immature Granulocytes Absolute 0.05 #; Lymphocytes # 1.8 10*3/uL (1.4-4.0); Lymphocytes % 19.8 % (21.2-54.2); Mean Corpuscular HGB Conc 35.7 GM/DL (32-36); Mean Corpuscular Hemoglobin 32 PG (27-34); Mean Corpuscular Volume 88.2 FL (87-102); Mean Platelet Volume 10.3 FL (9.6-12.0); Monocytes # 0.5 10*3/uL (0.11-0.8); Monocytes % 5.7 % (1.7-12.7); Neutrophils # 6.4 10*3/uL (1.4-7.4); Neutrophils % 71.6 % (38.7-73.9); Platelet Count 267 T/CUMM (130-400); Red Blood Count 3.97 MC/CUMM (3.8-5.5); Red Cell Distribution Width 11.6 % (9.3-17.3); White Blood Count 8.9 T/CUMM (4-12)
[2016-06-30 05:43] LABS: Alanine Aminotransferase 41 U/L (16-61); Albumin 3.1 G/DL (3.4-5.0); Alkaline Phosphatase 74 U/L (45-117); Aspartate Amino Transferase 22 U/L (0-37); Bilirubin,Indirect 0.6 MG/DL (0.0-1.0); Blood Urea Nitrogen 15 MG/DL (7-18); Calcium 8.6 MG/DL (8.5-10.1); Glucose 136 MG/DL (74-106); Magnesium 1.9 MG/DL (1.8-2.4); Osmolality,Calculated 281.4 MOS/KG (273-304); Potassium 4.3 MMOL/L (3.5-5.1); Sodium 140 MMOL/L (136-145); Total Protein 5.7 G/DL (6.4-8.3)
--- NOTE | 2016-06-30 06:27 | Discharge Summary ---
Hospital Course - Hospital Course Hospital Course: History of present illness: Patient is a 56-year-old man who presented to the emergency room with recent onset of substernal chest discomfort. He was admitted for urgent evaluation and catheterization. Past medical history review of systems social history and family history are documented in his admission note but the patient is actually been a relatively good health but does have newly discovered diabetes mellitus and hypertension. Hospital course: Patient was taken to the cardiac [facility] where severe two- vessel coronary disease was encountered and the patient was referred for bypass surgery. He was taken to surgery shortly thereafter and two-vessel grafting was performed with an internal mammary graft to the anterior descending coronary artery and a saphenous vein graft to the obtuse marginal coronary artery. Patient's postoperative course was uncomplicated and he was discharged home on the fifth postoperative day. Specialty Discharge - Follow Up or Referrals Follow up with: Yordan Dean MD [Physician] - 1 Month (BMP, Mg+ CBC, EKG) Discharge Plan - Discharge Medications No Action No Known Home Medications [No Known Home Medications] - Follow Up or Referral Follow Up: Yordan Dean MD [Physician] - 1 Month (BMP, Mg+ CBC, EKG) - Forms/Instructions Instructions: Myocardial Infarction (GEN), Coronary Artery Disease (GEN), Heart Healthy Diet (GEN), Coronary Artery Bypass Graft, Senior Marketing Manager (GEN), Sternal Precautions (GEN), Sternal Precautions, Senior Marketing Manager (GEN) Exam - Constitutional Vitals: Period Temp Pulse Resp BP Sys/Nunez Pulse Ox Last 24 Hr 97 F-98.3 F 78-85 18-20 138-168/78-95 96-98 Discharge Results Procedures and tests throughout hospitalization: Pending Orders 06/24/16 03:10 Fresh Frozen Plasma IN AM Red Blood Cells Leuko Red IN AM Single Donor Platelets IN AM Type and Screen IN AM 06/30/16 04:00 XR chest 2V IN AM 07/01/16 04:00 XR chest 2V IN AM Bilirubin Profile Adult IN AM Comp Blood Count Auto Diff IN AM Comprehensive Metabolic Panel IN AM Hepatic (Liver) Panel IN AM Magnesium IN AM Troponin,CKMB & Ck Total IN AM Labs on day of discharge: Labs from last 24 hours 06/30/16 06/30/16 06/29/16 04:50 04:50 20:11 WBC 8.9 RBC 3.97 Hgb 12.5 L Hct 35.0 L MCV 88.2 MCH 32 MCHC 35.7 RDW 11.6 Plt Count 267 D MPV 10.3 Neut % (Auto) 71.6 Lymph % (Auto) 19.8 L Coal % (Auto) 5.7 Eos % (Auto) 1.7 Baso % (Auto) 0.6 Neut # (Auto) 6.4 Lymph # (Auto) 1.8 Coal # (Auto) 0.5 Eos # (Auto) 0.2 Baso # (Auto) 0.1 Immature Gran % 0.6 Nucleated RBC % 0.0 Immature Gran # 0.05 Nucleated RBCs # 0.00 Sodium 140 Potassium 4.3 Chloride 103 Carbon Dioxide 30 Anion Gap 11.3 BUN 15 Creatinine 0.90 GFR Calculation 134 BUN/Creatinine Ratio 16.00 Glucose 136 H POC Glucose 85 Calculated Osmolality 281.4 Calcium 8.6 Magnesium 1.9 Total Bilirubin 0.70 Direct Bilirubin 0.10 Indirect Bilirubin 0.6 AST 22 ALT 41 Alkaline Phosphatase 74 Total Creatine Kinase 59 D CK-MB (CK-2) < 1.0 Troponin I 1.400 H D Total Protein 5.7 L Albumin 3.1 L Globulin 2.6 Albumin/Globulin Ratio 1.1 06/29/16 06/29/16 06/29/16 15:48 12:08 07:57 WBC RBC Hgb Hct MCV MCH MCHC RDW Plt Count MPV Neut % (Auto) Lymph % (Auto) Coal % (Auto) Eos % (Auto) Baso % (Auto) Neut # (Auto) Lymph # (Auto) Coal # (Auto) Eos # (Auto) Baso # (Auto) Immature Gran % Nucleated RBC % Immature Gran # Nucleated RBCs # Sodium Potassium Chloride Carbon Dioxide Anion Gap BUN Creatinine GFR Calculation BUN/Creatinine Ratio Glucose POC Glucose 178 H 215 H 190 H Calculated Osmolality Calcium Magnesium Total Bilirubin Direct Bilirubin Indirect Bilirubin AST ALT Alkaline Phosphatase Total Creatine Kinase CK-MB (CK-2) Troponin I Total Protein Albumin Globulin Albumin/Globulin Ratio 06/29/16 06:08 WBC RBC Hgb Hct MCV MCH MCHC RDW Plt Count MPV Neut % (Auto) Lymph % (Auto) Coal % (Auto) Eos % (Auto) Baso % (Auto) Neut # (Auto) Lymph # (Auto) Coal # (Auto) Eos # (Auto) Baso # (Auto) Immature Gran % Nucleated RBC % Immature Gran # Nucleated RBCs # Sodium 140 Potassium 4.3 Chloride 104 Carbon Dioxide 28 Anion Gap 12.3 BUN 18 Creatinine 0.80 GFR Calculation 140 BUN/Creatinine Ratio 22.00 H Glucose 206 H POC Glucose Calculated Osmolality 286.4 Calcium 8.0 L Magnesium 2.1 Total Bilirubin Direct Bilirubin Indirect Bilirubin AST ALT Alkaline Phosphatase Total Creatine Kinase CK-MB (CK-2) Troponin I Total Protein Albumin Globulin Albumin/Globulin Ratio DS: Provider Date of admission: 06/22/16 17:43 Primary care physician: . No PCP Attending physician on admission: Socorro Martin Consults: 06/23/16 13:18 Consult to Dietitian [CONS] Routine Reason for Dietitian: Other Consult Comment: low salt, low cholesterol, diet 06/26/16 08:04 Consult to Cardiac Rehabilitation [CONS] Routine Reason for Cardiac Rehabilitation: Other Consult Comment: Post CABG/heart surgery Consult to Diabetes Center, Educator [CONS] Routine Reason for Face Painter: Diabetes Education Initial Insulin Education Consult Comment: insulin education Consult to Dietitian [CONS] Routine Reason for Dietitian: Dietary Consult Consult Comment: Cardiac, low salt, low cholesterol diet Consult to Physical Therapy [CONS] Routine Reason for Physical Therapy: Other Consult Comment: CV Rehab Consult to Physician [CONS] Routine Comment: Management of diabetes Consulting Provider: Consult to Specialist Group: Hospitalist Person Notified: MICK Date Notified: 06/28/16 Time Notified: 12:19 Discharging clinician: Carl Chapa MD Expected date of discharge: 06/30/16
--- NOTE | 2016-06-30 06:31 | Discharge Summary ---
Specialty Discharge - Follow Up or Referrals Follow up with: Yordan Dean MD [Physician] - 1 Month (BMP, Mg+ CBC, EKG) Carl Chapa MD [Physician] - 1 Month Discharge Plan - Discharge Data Disposition: Disch To Home/Self Care Condition at Discharge: Stable Discharge Diet: advance to your usual diet Activity: resume usual activities as tolerated Hygiene: no restrictions Weight Bearing at Discharge: full weight bearing Driving: not for (10 days) - Discharge Medications New Aspirin EC Tab 325 mg PO DAILY tablet Glimepiride [Amaryl] 4 mg PO BID W/MEALS #60 tablet Atorvastatin [Lipitor] 40 mg PO BEDTIME #30 tablet Losartan [Cozaar] 25 mg PO DAILY #30 tablet Metoprolol Tartrate Tab [Lopressor Tab] 25 mg PO BID #60 tablet metFORMIN [Glucophage] 1,000 mg PO BID W/MEALS #60 tablet - Follow Up or Referral Follow Up: Yordan Dean MD [Physician] - 1 Month (BMP, Mg+ CBC, EKG) - Forms/Instructions Instructions: Myocardial Infarction (GEN), Coronary Artery Disease (GEN), Heart Healthy Diet (GEN), Coronary Artery Bypass Graft, Online Retailer (GEN), Sternal Precautions (GEN), Sternal Precautions, Online Retailer (GEN) Exam - Constitutional Vitals: Period Temp Pulse Resp BP Sys/Nunez Pulse Ox Last 24 Hr 97 F-98.3 F 78-85 18-20 138-168/78-95 96-98 Discharge Results Procedures and tests throughout hospitalization: Pending Orders 06/24/16 03:10 Fresh Frozen Plasma IN AM Red Blood Cells Leuko Red IN AM Single Donor Platelets IN AM Type and Screen IN AM 06/30/16 04:00 XR chest 2V IN AM 07/01/16 04:00 XR chest 2V IN AM Bilirubin Profile Adult IN AM Comp Blood Count Auto Diff IN AM Comprehensive Metabolic Panel IN AM Hepatic (Liver) Panel IN AM Magnesium IN AM Troponin,CKMB & Ck Total IN AM Labs on day of discharge: Labs from last 24 hours 06/30/16 06/30/16 06/29/16 04:50 04:50 20:11 WBC 8.9 RBC 3.97 Hgb 12.5 L Hct 35.0 L MCV 88.2 MCH 32 MCHC 35.7 RDW 11.6 Plt Count 267 D MPV 10.3 Neut % (Auto) 71.6 Lymph % (Auto) 19.8 L [place] % (Auto) 5.7 Eos % (Auto) 1.7 Baso % (Auto) 0.6 Neut # (Auto) 6.4 Lymph # (Auto) 1.8 [place] # (Auto) 0.5 Eos # (Auto) 0.2 Baso # (Auto) 0.1 Immature Gran % 0.6 Nucleated RBC % 0.0 Immature Gran # 0.05 Nucleated RBCs # 0.00 Sodium 140 Potassium 4.3 Chloride 103 Carbon Dioxide 30 Anion Gap 11.3 BUN 15 Creatinine 0.90 GFR Calculation 134 BUN/Creatinine Ratio 16.00 Glucose 136 H POC Glucose 85 Calculated Osmolality 281.4 Calcium 8.6 Magnesium 1.9 Total Bilirubin 0.70 Direct Bilirubin 0.10 Indirect Bilirubin 0.6 AST 22 ALT 41 Alkaline Phosphatase 74 Total Creatine Kinase 59 D CK-MB (CK-2) < 1.0 Troponin I 1.400 H D Total Protein 5.7 L Albumin 3.1 L Globulin 2.6 Albumin/Globulin Ratio 1.1 06/29/16 06/29/16 06/29/16 15:48 12:08 07:57 WBC RBC Hgb Hct MCV MCH MCHC RDW Plt Count MPV Neut % (Auto) Lymph % (Auto) [place] % (Auto) Eos % (Auto) Baso % (Auto) Neut # (Auto) Lymph # (Auto) [place] # (Auto) Eos # (Auto) Baso # (Auto) Immature Gran % Nucleated RBC % Immature Gran # Nucleated RBCs # Sodium Potassium Chloride Carbon Dioxide Anion Gap BUN Creatinine GFR Calculation BUN/Creatinine Ratio Glucose POC Glucose 178 H 215 H 190 H Calculated Osmolality Calcium Magnesium Total Bilirubin Direct Bilirubin Indirect Bilirubin AST ALT Alkaline Phosphatase Total Creatine Kinase CK-MB (CK-2) Troponin I Total Protein Albumin Globulin Albumin/Globulin Ratio 06/29/16 06:08 WBC RBC Hgb Hct MCV MCH MCHC RDW Plt Count MPV Neut % (Auto) Lymph % (Auto) [place] % (Auto) Eos % (Auto) Baso % (Auto) Neut # (Auto) Lymph # (Auto) [place] # (Auto) Eos # (Auto) Baso # (Auto) Immature Gran % Nucleated RBC % Immature Gran # Nucleated RBCs # Sodium 140 Potassium 4.3 Chloride 104 Carbon Dioxide 28 Anion Gap 12.3 BUN 18 Creatinine 0.80 GFR Calculation 140 BUN/Creatinine Ratio 22.00 H Glucose 206 H POC Glucose Calculated Osmolality 286.4 Calcium 8.0 L Magnesium 2.1 Total Bilirubin Direct Bilirubin Indirect Bilirubin AST ALT Alkaline Phosphatase Total Creatine Kinase CK-MB (CK-2) Troponin I Total Protein Albumin Globulin Albumin/Globulin Ratio DS: Provider Date of admission: 06/22/16 17:43 Primary care physician: . No PCP Attending physician on admission: Socorro Martin Consults: 06/23/16 13:18 Consult to Dietitian [CONS] Routine Reason for Dietitian: Other Consult Comment: low salt, low cholesterol, diet 06/26/16 08:04 Consult to Cardiac Rehabilitation [CONS] Routine Reason for Cardiac Rehabilitation: Other Consult Comment: Post CABG/heart surgery Consult to Diabetes Center, Educator [CONS] Routine Reason for Senior Education Specialist: Diabetes Education Initial Insulin Education Consult Comment: insulin education Consult to Dietitian [CONS] Routine Reason for Dietitian: Dietary Consult Consult Comment: Cardiac, low salt, low cholesterol diet Consult to Physical Therapy [CONS] Routine Reason for Physical Therapy: Other Consult Comment: CV Rehab Consult to Physician [CONS] Routine Comment: Management of diabetes Consulting Provider: Consult to Specialist Group: Hospitalist Person Notified: MICK Date Notified: 06/28/16 Time Notified: 12:19 Discharging clinician: Carl Chapa MD
[2016-06-30] MEDS: INSULIN REGULAR 100 UNIT/ML SUBCUT SCH ×2 (07:48→09:11)
--- NOTE | 2016-06-30 07:48 | XRay Report ---
Exam: Chest 2 views Date: June 30, 2016 at 7:39 AM Comparison: Chest one view portable June 28, 2016 Reason: Shortness of breath Findings: A right IJ catheter is again place. The cardiac silhouette is again enlarged, and the patient status post sternotomy. There are minimal scattered opacities within both lower lung zones, left greater than right. This likely represents atelectasis, but there could also be pneumonia at the left lower lung zone. No pneumothorax is identified, but there is mild left pleural fluid. The osseous structures appear stable. Impression: There is slight improved aeration of the left lung base. The study is otherwise similar to before. PROCEDURE INTERPRETED AT [facility] DEPARTMENT OF RADIOLOGY Final Report Signed by: Dr. Richa Frank
[2016-06-30 07:49] VITALS: BP 170/104
[2016-06-30] MEDS: metFORMIN 500 MG TABLET PO SCH (09:09)
[2016-06-30] MEDS: ASPIRIN EC 325 MG TABLET PO SCH (09:09)
[2016-06-30] MEDS: CHLORHEXIDINE 0.12% ORAL RINSE 60 ML BOTTLE SWISH/SPIT SCH (09:10)
[2016-06-30] MEDS: DOCUSATE SODIUM 100 MG CAPSULE PO SCH (09:10)
[2016-06-30] MEDS: FERROUS SULFATE 325 MG TABLET PO SCH (09:10)
[2016-06-30] MEDS: GLIMEPIRIDE 4 MG TABLET PO SCH (09:10)
[2016-06-30] MEDS: PANTOPRAZOLE 40 MG TABLET PO SCH (09:10)
[2016-06-30] MEDS: LOSARTAN 25 MG TABLET PO SCH (09:10)
[2016-06-30] MEDS: METOPROLOL TARTRATE 25 MG TABLET PO SCH (09:10)
--- NOTE | 2016-06-30 10:19 | Hospitalist Progress Note ---
Assessment and Plan (1) NSTEMI (non-ST elevated myocardial infarction) Status: Resolved Assessment and plan: Status post CABG 2 Current Visit: Yes (2) Diabetes Status: Chronic Assessment and plan: Hemoglobin A1c 10.4, cont metformin and amaryl Current Visit: Yes (3) Sleep apnea Status: Chronic Assessment and plan: Follow-up with Dr. Garrido in 1-2 weeks. Sleep Lab we will try to get him his own machine. Current Visit: Yes Qualifiers: Sleep apnea type: obstructive Qualified Code(s): G47.33 - Obstructive sleep apnea (adult) (pediatric) Hospitalist: Subjective Interval history: Discussed blood sugars with the patient's family. Dr. Garrido would like to see him as an outpatient. Patient did better with his CPAP machine with the nasal mask. Exam - Constitutional Vitals: Period Temp Pulse Resp BP Sys/Nunez Pulse Ox Last 24 Hr 97.0 F-98.3 F 78-85 18-20 138-170/78-104 96-98 Exam: Heart Rate-[RRR] Lungs-[CTAB] GI-[+bs soft, NT] Ext-[no edema, left leg wound healing] Neuro [Motor 5/5], [alert and oriented times 3] psych [normal mood and affect] General [no acute distress] Results - Labs CBC & BMP: 06/30/16 04:50 06/30/16 04:50 Lab Results: I have reviewed the past 24 hour labs Quality Measures - VTE Contraindication to Pharmacological VTE Prophylaxis: High Risk of Bleeding Specialty Discharge - Follow Up or Referrals Follow up with: Carl Chapa MD [Physician] - 08/03/16 10:30 am () Yordan Dean MD [Physician] - 07/30/16 9:40 am (BMP, Mg+ CBC, EKG)
== END 2016-06-30 10:16 | disposition home or self-care (01) | DRG 234 ==
LOC: N.ED 14:56 → N.EDINP 17:43 → N.TELES 18:49 → N.CVR 06-25 08:56 → N.TELES 06-26 12:48
PROVIDERS: ADMIT Internal Medicine Cardiovascular Disease; ATTEND Internal Medicine Cardiovascular Disease
PROC: CLCCHCL (ICD-10-PCS; 2016-06-23 09:15)

== ENCOUNTER 2018-08-24 14:34 | Inpatient (IN) ==
[2018-08-24 15:20] LABS: Basophils # 0.1 10*3/uL (0.0-0.2); Basophils % 0.7 % (0.0-0.8); Eosinophils # 0.3 10*3/uL (0.0-0.87); Eosinophils % 2.6 % (0.00-10.9); Hematocrit 42.8 VOL% (42.0-52.0); Hemoglobin 14.7 GM/DL (14.0-18.0); Immature Granulocytes % 0.4 %; Immature Granulocytes Absolute 0.05 #; Lymphocytes # 1.6 10*3/uL (1.4-4.0); Lymphocytes % 14.3 % (21.2-54.2); Mean Corpuscular HGB Conc 34.3 GM/DL (32-36); Mean Corpuscular Volume 89.5 FL (87-102); Mean Platelet Volume 9.9 FL (9.6-12.0); Monocytes % 7.1 % (1.7-12.7); Neutrophils % 74.9 % (38.7-73.9); Platelet Count 270 T/CUMM (130-400); Red Blood Count 4.78 MC/CUMM (3.8-5.5); Red Cell Distribution Width 12.1 % (9.3-17.3); White Blood Count 11.4 T/CUMM (4-12)
[2018-08-24 15:30] LABS: PT Patient Result 10.4 SECS; Partial Thromboplastin Time 27.8 SECS (0-40)
[2018-08-24] MEDS ORDERED: ONDANSETRON 4 MG/2 ML VIAL IV STA (15:46)
[2018-08-24] MEDS ORDERED: ASPIRIN 325 MG TABLET PO STA (15:46)
[2018-08-24] MEDS ORDERED: NITROGLYCERIN 2% OINT 1 INCH/GM PACK TOP STA (15:46)
[2018-08-24] MEDS ORDERED: ALUM/MAG/SIMETH/LIDO VISC 1:1 30 ML BOTTLE PO STA (15:46)
[2018-08-24] MEDS ORDERED: MORPHINE 4 MG/1 ML VIAL IV STA (15:46)
[2018-08-24 15:53] LABS: Albumin 3.9 G/DL (3.4-5.0); Bilirubin,Total 0.8 MG/DL (0.2-1.0); Osmolality,Calculated 283.7 MOS/KG (273-304); Total Protein 6.9 G/DL (6.4-8.3)
[2018-08-24] MEDS ORDERED: DEXTROSE 10% 250 ML BAG IV PRN (17:22)
[2018-08-24] MEDS ORDERED: GLUCAGON 1 MG VIAL IM PRN (17:22)
[2018-08-24] MEDS ORDERED: ONDANSETRON 4 MG/2 ML VIAL IV PRN (17:22)
[2018-08-24] MEDS ORDERED: ACETAMINOPHEN 325 MG TABLET PO PRN (17:22)
[2018-08-24 17:59] LABS: Apearance,Urine CLEAR (Clear); Bacteria,Urine Occasional /HPF (Few); Bilirubin,Urine Negative (Negative); Blood, Urine Negative (Negative); Glucose,Urine (UA) >=500 mg/dL (Negative); Hyaline Casts,Urine 1 /LPF (0-3); Ketones,Urine Negative (Negative); Mucus,Urine Occasional /LPF (Occasional); Nitrite,Urine Negative (Negative); Protein,Urine Negative; RBC,Urine <1 /HPF (0-4); Urine Color Yellow (Yellow); Urine Specific Gravity 1.014 (1.001-1.035); Urine Urobilinogen < 2.0 EU/DL (0.2-1.0)
[2018-08-24] MEDS ORDERED: MORPHINE 4 MG/1 ML VIAL IV PRN (18:10)
[2018-08-24] MEDS: SODIUM CHLORIDE 0.9% 1,000 ML IV SCH (18:30)
[2018-08-24] MEDS: DOCUSATE SODIUM 100 MG CAPSULE PO SCH (22:33)
[2018-08-24] MEDS: INSULIN LISPRO 100 UNIT/ML SUBCUT SCH (22:35)
[2018-08-25 04:37] LABS: Basophils # 0.1 10*3/uL (0.0-0.2); Basophils % 0.7 % (0.0-0.8); Eosinophils # 0.3 10*3/uL (0.0-0.87); Hematocrit 39.7 VOL% (42.0-52.0); Hemoglobin 13.3 GM/DL (14.0-18.0); Immature Granulocytes % 0.5 %; Immature Granulocytes Absolute 0.04 #; Lymphocytes # 2.2 10*3/uL (1.4-4.0); Mean Corpuscular HGB Conc 33.5 GM/DL (32-36); Mean Corpuscular Volume 89.8 FL (87-102); Mean Platelet Volume 10.2 FL (9.6-12.0); Monocytes % 9.2 % (1.7-12.7); Neutrophils % 60.6 % (38.7-73.9); Platelet Count 243 T/CUMM (130-400); Red Blood Count 4.42 MC/CUMM (3.8-5.5); White Blood Count 8.6 T/CUMM (4-12)
[2018-08-25 05:05] LABS: Risk Ratio 4.29; VLDL CHOLESTEROL 33.4 MG/DL
[2018-08-25 05:23] LABS: Calcium 8.4 MG/DL (8.5-10.1); Osmolality,Calculated 280.5 MOS/KG (273-304); Thyroid Stimulating Hormone 3.46 uIU/ml (0.358-3.74)
[2018-08-25] MEDS: SODIUM CHLORIDE 0.9% 1,000 ML IV SCH (05:25)
[2018-08-25 07:43] VITALS: BP 138/76
[2018-08-25] MEDS ORDERED: POLYETHYLENE GLYCOL POWDER 17 GM PACK PO SCH (09:00)
[2018-08-25] MEDS ORDERED: PANTOPRAZOLE 40 MG TABLET PO SCH (09:00)
[2018-08-25] MEDS: INSULIN LISPRO 100 UNIT/ML SUBCUT SCH (09:16)
[2018-08-25] MEDS: DOCUSATE SODIUM 100 MG CAPSULE PO SCH (09:17)
== END 2018-08-25 11:08 | disposition home or self-care (01) | DRG 440 ==
LOC: N.ED 14:34 → N.EDINP 17:03 → N.5E 19:03
PROVIDERS: ADMIT Internal Medicine; ATTEND Internal Medicine